=== PATIENT | female | born 1990 | race Caucasian/White ===

== ENCOUNTER 2017-06-07 21:34 | Inpatient (IN) ==
--- NOTE | 2017-06-07 21:54 | Emergency Department Note ---
Disposition Clinical Impression: Suicidal ideation, Anxiety Disposition: Admitted As Inpatient Condition: Good Referrals: NONE,PCP [Primary Care Provider] - Forms: ED Satisfaction Letter Time of Disposition: 00:26 Psych HPI - General Chief Complaint: ED Psychiatric Symptoms Stated Complaint: SI Time Seen by Provider: 06/07/17 21:40 Source: patient Mode of arrival: ambulatory Limitations: no limitations Nursing Notes Reviewed: Yes Vital Signs Reviewed: Yes - History of Present Illness HPI Narrative: Patient presents to emergency room at care family members for evaluation of suicidal ideation and manic episode. Patient has multiple life stressors that have been going on for the last several days. Denies any other symptoms or complaints at this time. 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 Duration: constant History of similar episodes: Yes Improves with: none Worsens with: other Context: significant life stressor Alleged intoxication: No Associated Psychiatric Symptoms: depression, suicidal ideation Associated symptoms: Reports: denies other symptoms Traumatic symptoms: denies traumatic injury Treatments prior to arrival: none Self harm or harm to others: admits thoughts of self harm, has plan - Related Data Home Medications Medication Instructions Recorded Confirmed Amlodipine [Norvasc] 10 mg PO DAILY 04/09/15 04/09/15 Gabapentin [Neurontin] 300 mg PO TID 04/09/15 04/09/15 HydrOXYzine 50 mg PO BID 04/09/15 04/09/15 [place] Oral Soln [[place]] 300 mg PO HS 04/09/15 04/09/15 Meloxicam [Mobic] 15 mg PO DAILY 04/09/15 04/09/15 Prazosin [Minipress] 4 mg PO HS 04/09/15 04/09/15 Zolpidem [Ambien] 5 mg PO HS 04/09/15 04/09/15 lamoTRIgine [Lamictal] 150 mg PO DAILY 04/09/15 04/09/15 Previous Rx's Medication Instructions Recorded Ondansetron ODT [Zofran ODT] 4 mg SL Q6HR PRN #10 tab.rapdis 04/05/15 Ciprofloxacin HCl [Cipro] 250 mg PO BID #10 tab 07/29/15 Phenazopyridine [Pyridium] 100 mg PO TID #20 tablet 07/29/15 Ondansetron ODT [Zofran ODT] 4 mg SL Q8HR #14 tab.rapdis 06/21/16 Amoxicillin [Amoxil] 500 mg PO BID #20 capsule 07/15/16 predniSONE [Prednisone] 60 mg PO DAILY #12 tablet 07/15/16 Phenazopyridine [Pyridium] 100 mg PO TID PRN #15 tablet 03/22/17 Allergies Allergy/AdvReac Type Severity Reaction Status Date / Time atomoxetine [From Strattera] Allergy See Verified 03/22/17 18:39 Comments lidocaine Allergy See Verified 03/22/17 18:39 Comments morphine Allergy See Verified 03/22/17 18:39 Comments promethazine Allergy See Verified 03/22/17 18:39 Comments clonazepam [From Klonopin] AdvReac Depression Verified 03/22/17 18:39 All systems ED: reviewed and negative except as stated. Review of Systems: As Per HPI Constitutional: Denies: fever, chills ENT ED: Denies: throat pain Cardiovascular: Denies: chest pain, palpitations, dyspnea on exertion, orthopnea Respiratory: Denies: cough, dyspnea, wheezes Gastrointestinal: Denies: abdominal pain, nausea, vomiting, diarrhea Genitourinary: Denies: dysuria, frequency Musculoskeletal: Denies: back pain, neck pain Integumentary: Denies: rash Neurological: Denies: headache Psychiatric: Reports: depression, suicidal thoughts. Denies: homicidal thoughts , auditory hallucinations, visual hallucinations Past Medical History - Past Medical History Attestation: Yes The following information was validated with the patient. Source: patient Medical history: Reports: hypertension Surgical history: Reports: other Psychiatric history: Reports: anxiety, bipolar, depression, prior suicide attempt, previous psychiatric hospitalization, other VISION THERAPIST history: Reports: other - Social History Smoking Status: Current every day smoker Smokeless Tobacco Status: No Alcohol use: Reports: occasionally Drug use: Reports: marijuana Physical Exam - General Limitations: no limitations General appearance: alert - Head Head exam: atraumatic, normocephalic, normal inspection - ENT ENT exam: normal exam, normal oropharynx, mucous membranes moist - Neck Neck exam: Present: normal inspection, full ROM, trachea midline - Chest Chest inspection: Present: normal inspection, symmetric chest wall rise - Respiratory Respiratory exam: Present: normal lung sounds bilaterally - Cardiovascular Cardiovascular exam: Present: regular rate, normal rhythm, normal heart sounds - Abdominal Exam Abdominal exam: Present: soft, Non-Tender. Absent: tenderness, distention, guarding, rebound, rigidity - Extremities Exam Extremities exam: Present: normal inspection, full ROM. Absent: tenderness - Neurological Exam Neurological exam: Present: alert, oriented X3, CN II-XII intact, normal gait - Psychiatric Psychiatric exam: Present: depressed, suicidal ideation - Skin Skin exam: Present: warm, dry, intact, normal color Course Course Narrative: Patient seen and examined the time of arrival. See history of present illness. 7-year-old female with known psychiatric illness presents emergency room in a manic episode with suicidal ideation. At this time she is describing that she would like to cut her wrist so deep that she would bleed to . Patient also said that you take all her psych medications at one time to kill herself. She has done this once in the past. She is currently in treatment. She did not go to appointment today. She describes multiple life stressors today at this time. Denies any other symptoms. No chest pain or shortness of breath no nausea vomiting diarrhea. Denies any headache or vision change. Patient has no other medical conditions or symptoms on presentation here today. Patient will medical clearance completed this time and laboratory workup and psychiatric team mobile. Family is with her at the bedside and agreed with the plan. Patient was pink slipped on presentation secondary to her complaints and description of her mental condition. - Reevaluation(s) Reevaluation #1: 1a contacted, medical clearance completed Time: 22:40 Reevaluation #2: Patient will be admitted at this time a psychiatric team evaluation. Time: 00:26 Vital Signs Temperature 97.8 F 06/07/17 21:42 Pulse Rate 103 06/07/17 21:42 Respiratory Rate 18 06/07/17 21:42 Blood Pressure 122/84 06/07/17 21:42 O2 Sat by Pulse Oximetry 96 06/07/17 21:42 Temperature 97.8 F 06/07/17 21:42 Pulse Rate 103 06/07/17 21:42 Respiratory Rate 18 06/07/17 21:42 Blood Pressure 122/84 06/07/17 21:42 O2 Sat by Pulse Oximetry 96 06/07/17 21:42 Oxygen Delivery Oxygen Delivery Room Air Psych - MDM Narrative Medical decision making narrative: Manic episode, suicidal ideation - Medical Records Medical records reviewed: Yes I reviewed the patient's medical records. - Lab Data Lab results reviewed: Yes I reviewed the patient's lab results. Result diagrams: 06/07/17 21:58 06/07/17 21:58 Lab Results 06/07/17 06/07/17 06/07/17 Range/Units 21:45 21:50 21:50 WBC (4.3-11.1) K/mcL RBC (3.82-4.97) M/mcL Hgb (11.5-15.4) g/dL Hct (35.3-44.9) % MCV (83.0-100.0) fL MCH (28.0-33.3) pg MCHC (31.6-35.5) g/dL RDW (11.5-14.5) % Plt Count (140-400) K/mcL MPV (9.4-12.4) fL Immature Gran % (0-4) % Seg Neutrophils % % Lymphocytes % % Monocytes % % Eosinophils % % Basophils % % Neutrophils # (1.6-8.9) K/mcL Lymphocytes # (0.6-4.6) K/mcL Monocytes # (0.0-1.3) K/mcL Eosinophils # (0.0-0.6) K/mcL Basophils # (0.0-0.2) K/mcL Sodium (136-145) mEq/L Potassium (3.5-5.1) mEq/L Chloride (98-107) mEq/L Carbon Dioxide (23-29) mEq/L BUN (6-20) mg/dL Creatinine (0.60-1.20) mg/dL Est GFR ( Amer) (> 60) Est GFR (Non-Af Amer) (> 60) BUN/Creatinine Ratio (6-26) Glucose (70-105) mg/dL Calculated Osmolality (280-300) Calcium (8.6-10.3) mg/dL Urine Color Yellow (Yellow) Urine Clarity Clear (Clear) Urine pH 6.5 (5.0-8.0) pH Units Ur Specific [place] 1.021 (1.010-1.025) Urine Protein Negative (Neg-Trace) mg/dL Urine Glucose (UA) Normal (Normal) mg/dL Urine Ketones Negative (Negative) mg/dL Urine Blood Negative (Negative) Urine Nitrite Negative (Negative) Urine Bilirubin Negative (Negative) Urine Urobilinogen Normal (Normal) mg/dL Ur Leukocyte Esterase Negative (Negative) Urine Test Negative (Negative) Salicylates (15.0-30.0) mg/dL Urine Opiates Screen Negative (Zphhiv=827) ng/mL Acetaminophen (10-30) mcg/mL Ur Barbiturates Screen Negative (Txzcgx=879) ng/mL Ur Phencyclidine Scrn Negative (Cutoff=25) ng/mL Ur Amphetamines Screen Positive H (Dpresa=4502) ng/mL U Benzodiazepines Scrn Negative (Qavbzz=399) ng/mL Urine Cocaine Screen Negative (Cutoff= 300) ng/mL U Marijuana (THC) Screen Negative (Cutoff = 50) ng/mL Ethyl Alcohol (0-10) mg/dL 06/07/17 06/07/17 Range/Units 21:58 21:58 WBC 14.2 H (4.3-11.1) K/mcL RBC 4.50 (3.82-4.97) M/mcL Hgb 13.2 (11.5-15.4) g/dL Hct 39.8 (35.3-44.9) % MCV 88.4 (83.0-100.0) fL MCH 29.3 (28.0-33.3) pg MCHC 33.2 (31.6-35.5) g/dL RDW 13.0 (11.5-14.5) % Plt Count 316 (140-400) K/mcL MPV 10.3 (9.4-12.4) fL Immature Gran % 0.4 (0-4) % Seg Neutrophils % 55.0 % Lymphocytes % 32.9 % Monocytes % 6.6 % Eosinophils % 4.5 % Basophils % 0.6 % Neutrophils # 7.8 (1.6-8.9) K/mcL Lymphocytes # 4.7 H (0.6-4.6) K/mcL Monocytes # 0.9 (0.0-1.3) K/mcL Eosinophils # 0.6 (0.0-0.6) K/mcL Basophils # 0.1 (0.0-0.2) K/mcL Sodium 138 (136-145) mEq/L Potassium 4.0 (3.5-5.1) mEq/L Chloride 110 H (98-107) mEq/L Carbon Dioxide 21 L (23-29) mEq/L BUN 11 (6-20) mg/dL Creatinine 0.74 (0.60-1.20) mg/dL Est GFR ( Amer) > 60 (> 60) Est GFR (Non-Af Amer) > 60 (> 60) BUN/Creatinine Ratio 15 (6-26) Glucose 96 (70-105) mg/dL Calculated Osmolality 285 (280-300) Calcium 9.0 (8.6-10.3) mg/dL Urine Color (Yellow) Urine Clarity (Clear) Urine pH (5.0-8.0) pH Units Ur Specific [place] (1.010-1.025) Urine Protein (Neg-Trace) mg/dL Urine Glucose (UA) (Normal) mg/dL Urine Ketones (Negative) mg/dL Urine Blood (Negative) Urine Nitrite (Negative) Urine Bilirubin (Negative) Urine Urobilinogen (Normal) mg/dL Ur Leukocyte Esterase (Negative) Urine Test (Negative) Salicylates < 5.0 L (15.0-30.0) mg/dL Urine Opiates Screen (Jltgen=553) ng/mL Acetaminophen < 1.0 L (10-30) mcg/mL Ur Barbiturates Screen (Rbtbec=151) ng/mL Ur Phencyclidine Scrn (Cutoff=25) ng/mL Ur Amphetamines Screen (Gqbbjp=8506) ng/mL U Benzodiazepines Scrn (Hdfrky=035) ng/mL Urine Cocaine Screen (Cutoff= 300) ng/mL U Marijuana (THC) Screen (Cutoff = 50) ng/mL Ethyl Alcohol < 10 (0-10) mg/dL Psychiatric Medical Clearance - Medical Clearance Checklist Does the patient have a NEW psychiatric condition?: No Any abnormalities indicating possible medical illness?: No Any history of medical issues?: No Medical History: Hypertension (Chronic) DVT prophylaxis (Acute) Leukocytosis (Acute) Mood disorder (Acute) Borderline personality disorder (Chronic) Anxiety (Chronic) Suicidal ideation (Acute) Abdominal pain (Inactive) Abnormal urinalysis (Inactive) Acute anxiety (Inactive) Acute anxiety (Inactive) Bipolar disorder (Inactive) Bipolar disorder (Inactive) Bronchitis (Inactive) Cystitis (Inactive) Dehydration (Inactive) Depression (Inactive) Gastroenteritis (Inactive) Left flank pain (Inactive) Leukocytosis (Inactive) Medication refill (Inactive) Menstrual cramp (Inactive) Nausea & vomiting (Inactive) Otitis media (Inactive) Suicidal ideation (Inactive) UTI (urinary tract infection) (Inactive) Urethritis (Inactive) No Social History Section defined Any abnormal vital signs prior to transfer?: No Current Vitals: Last Vital Signs Temp 97.8 F 06/07/17 21:42 Pulse 103 06/07/17 21:42 Resp 18 06/07/17 21:42 BP 122/84 06/07/17 21:42 Pulse Ox 96 06/07/17 21:42 Is the patient intoxicated or cognitively impaired?: No Psychiatric Lab Panel: Drug Levels and Toxicity 06/07/17 06/07/17 21:50 21:58 Urine Opiates Screen Negative Acetaminophen < 1.0 L Ur Barbiturates Screen Negative Ur Phencyclidine Scrn Negative Ur Amphetamines Screen Positive H U Benzodiazepines Scrn Negative Urine Cocaine Screen Negative U Marijuana (THC) Screen Negative Ethyl Alcohol < 10 Any abnormalities on the physical exam?: No Any abnormal labs?: No Abnormal Labs: Abnormal lab results WBC 14.2 K/mcL (4.3-11.1) H 06/07/17 21:58 Lymphocytes # 4.7 K/mcL (0.6-4.6) H 06/07/17 21:58 Chloride 110 mEq/L (98-107) H 06/07/17 21:58 Carbon Dioxide 21 mEq/L (23-29) L 06/07/17 21:58 Salicylates < 5.0 mg/dL (15.0-30.0) L 06/07/17 21:58 Acetaminophen < 1.0 mcg/mL (10-30) L 06/07/17 21:58 Ur Amphetamines Screen Positive ng/mL (Cytkwv=9193) H 06/07/17 21:50 Does the patient require durable medical equiptment?: No Is the patient ambulatory?: Yes Is the patient a fall risk?: No Has the patient been medically cleared?: Yes Any acute medical condition require Tx prior to transfer?: No Statement of Medical Clearance: I have evaluated the patient, reviewed diagnostic information, and certify that the patient's medical condition is sufficiently stable that transfer to the psychiatric unit does not pose a significant risk of deterioration.
[2017-06-07 22:00] LABS: Bilirubin,Urine Negative (Negative); Blood,Urine Negative (Negative); Clarity,Urine Clear (Clear); Color,Urine Yellow (Yellow); Glucose,Urine (UA) Normal (Normal); Ketones,Urine Negative (Negative); Leukocyte Esterase,Urine Negative (Negative); Nitrite,Urine Negative (Negative); PH,Urine 6.5 pH Units (5.0-8.0); Protein,Urine Negative (Neg-Trace); Specific Gravity,Urine 1.021 (1.010-1.025); Urobilinogen,Urine Normal (Normal)
[2017-06-07 22:05] LABS: Amphetamine Screen,Urine Positive ng/mL (Cutoff=1000); Barbiturate Screen,Urine Negative ng/mL (Cutoff=200); Benzodiazepines Screen,Urine Negative ng/mL (Cutoff=200); Cannabinoid Screen,Urine Negative ng/mL (Cutoff = 50); Cocaine Screen,Urine Negative ng/mL (Cutoff= 300); Opiate Screen,Urine Negative ng/mL (Cutoff=300); Phencyclidine Screen,Urine Negative ng/mL (Cutoff=25)
[2017-06-07 22:06] LABS: Basophils # 0.1 K/mcL (0.0-0.2); Basophils % 0.6 %; Eosinophils # 0.6 K/mcL (0.0-0.6); Eosinophils % 4.5 %; Hematocrit 39.8 % (35.3-44.9); Hemoglobin 13.2 g/dL (11.5-15.4); Immature Granulocytes % 0.4 % (0-4); Lymphocytes # 4.7 K/mcL (0.6-4.6); Lymphocytes % 32.9 %; Mean Corpuscular HGB Conc 33.2 g/dL (31.6-35.5); Mean Corpuscular Hemoglobin 29.3 pg (28.0-33.3); Mean Corpuscular Volume 88.4 fL (83.0-100.0); Mean Platelet Volume 10.3 fL (9.4-12.4); Monocytes # 0.9 K/mcL (0.0-1.3); Monocytes % 6.6 %; Neutrophils # 7.8 K/mcL (1.6-8.9); Platelet Count 316 K/mcL (140-400)
[2017-06-07 22:22] LABS: Acetaminophen < 1.0 mcg/mL (10-30); Ethanol < 10 mg/dL (0-10); Salicylate < 5.0 mg/dL (15.0-30.0)
[2017-06-07 22:34] LABS: BUN/Creatinine Ratio 15 (6-26); Blood Urea Nitrogen 11 mg/dL (6-20); Carbon Dioxide 21 mEq/L (23-29); Chloride 110 mEq/L (98-107); Glucose 96 mg/dL (70-105); Osmolality,Calculated 285 (280-300); Sodium 138 mEq/L (136-145); eGFR For African Americans > 60 (> 60); eGFR For Non-African Americans > 60 (> 60)
[2017-06-08] MEDS ORDERED: MOM Conc 10 ML UD.LIQ PO PRN (00:30)
[2017-06-08] MEDS ORDERED: hydrOXYzine pamoate 25 MG CAPSULE PO PRN (00:30)
[2017-06-08] MEDS ORDERED: Haloperidol Lactate 5 MG/ML VIAL IM PRN (00:30)
[2017-06-08] MEDS ORDERED: Mag Hydrox/Al Hydrox/Simeth 30 ML UDC PO PRN (00:30)
[2017-06-08] MEDS ORDERED: Acetaminophen 325 MG TABLET PO PRN (00:30)
[2017-06-08] MEDS ORDERED: *HR* LORazepam 1 MG TABLET PO PRN (00:30)
[2017-06-08] MEDS ORDERED: traZODone 50 MG TABLET PO PRN (00:30)
[2017-06-08] MEDS ORDERED: *HR* LORazepam 2 MG/ML VIAL IM PRN (00:30)
[2017-06-08] MEDS ORDERED: Divalproex (24 HR) 500 MG TABLET PO SCH (01:15)
[2017-06-08] MEDS ORDERED: Nicotine 2 MG GUM BC PRN (02:24)
[2017-06-08] MEDS: JUNEL 1/20 PO SCH ×2 (03:11→09:27)
[2017-06-08] MEDS: Ibuprofen 800 MG TABLET PO PRN (03:12)
[2017-06-08] MEDS ORDERED: Nicotine 2 MG GUM BC SCH (06:00)
[2017-06-08] MEDS: Nicotine 21 MG PATCH.TD24 TD SCH (09:04)
[2017-06-08] MEDS: *HR* Metformin 500 MG TABLET PO SCH ×2 (09:04→16:13)
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
[2017-06-08] MEDS: Gabapentin 400 MG CAPSULE PO SCH ×2 (16:13→21:33)
[2017-06-08] MEDS: Divalproex (24 HR) 500 MG TABLET PO SCH (21:33)
[2017-06-08] MEDS: ETHINYL ESTRADIOL PO SCH (21:34)
[2017-06-08] MEDS: NORETHINDRONE ACETATE PO SCH (21:34)
[2017-06-09] MEDS: Nicotine 21 MG PATCH.TD24 TD SCH (08:25)
[2017-06-09] MEDS: Gabapentin 400 MG CAPSULE PO SCH ×3 (08:25→21:13)
[2017-06-09] MEDS: *HR* Metformin 500 MG TABLET PO SCH ×2 (08:25→15:35)
--- NOTE | 2017-06-09 09:53 | Psychiatry Progress Note ---
Date of Encounter: 06/09/17 Time of Encounter: 09:48 Subjective Interval history: Client reports she is feeling better. Still some drama over an ex-girlfriend who is still living with client. However, ex is moving to [place] next week. Client's sister is planning to live with client after discharge to help her through the transition of ex leaving and so client won't be alone after she does move. Client reports being alone is a trigger for her. Client is aware she could lose her housing due to recent meth use. Has worked hard to become independent. However, her mother is supportive and client will have somewhere to go if she needs a back-up plan. Given her impulsivity mother intends to hold on to medications and dispense them to client when needed. Client reports she intends to go to groups today. Thinks she will be ready for discharge by tomorrow. Has follow-up appointments in place for next week. Review of Systems Constitutional: Denies: fever, chills, weakness, weight change Eyes: Denies: eye pain, vision change Ears, Nose, Throat: Denies: ear pain, throat pain, dental pain, hearing loss, congestion Cardiovascular: Denies: chest pain, palpitations, dyspnea on exertion Respiratory: Denies: cough, dyspnea, wheezes Gastrointestinal: Denies: abdominal pain, nausea, vomiting, diarrhea, constipation Musculoskeletal: Denies: joint swelling, joint pain Neurological: Denies: headache, weakness, numbness, memory loss Objective: Exam Patient orientation: Yes Person, Yes Time, Yes Place Level of alertness: Alert Patient appearance: Appropriate, Well Groomed Behavior: calm, cooperative Psychomotor activity: Normal Eye contact: Maintains Eye Contact Mood description: Other Affect description: full range Speech pattern: Normal rate, Normal rhythm, Normal tone Speech volume: Normal Thought process: Goal Oriented Thought content: No Suicidal ideation, No Homicidal ideation, No Overt delusions Perceptual disturbances: No Auditory hallucinations, No Visual hallucinations Judgment: Limited Insight: Partial Results - Vital Signs Vital Signs: Temp Pulse Resp BP Pulse Ox 97.6 F 91 16 113/78 96 06/09/17 08:46 06/09/17 08:46 06/09/17 08:46 06/09/17 08:46 06/07/17 21:42 Assessment and Plan (1) Mood disorder Current visit: No Status: Acute Plan: Continue hospitalization, Close observation, Suicide Precautions per unit protocol, Encourage participation in unit milieu, Group Therapy, Monitor sleep, Monitor appetite Risks, benefits, side effects, alternatives discussed w/pt: Yes Patient agreeable to treatment: Yes (2) Borderline personality disorder Current visit: No Status: Chronic Plan: Continue hospitalization, Close observation, Suicide Precautions per unit protocol, Encourage participation in unit milieu, Group Therapy, Monitor sleep, Monitor appetite Risks, benefits, side effects, alternatives discussed w/pt: Yes Patient agreeable to treatment: Yes Consult Discharge Plan - Plan Referrals: NONE,PCP [Primary Care Provider] -
[2017-06-09] MEDS: Nicotine 2 MG GUM BC PRN ×2 (18:37→22:21)
[2017-06-09] MEDS: ETHINYL ESTRADIOL PO SCH (20:57)
[2017-06-09] MEDS: NORETHINDRONE ACETATE PO SCH (20:57)
[2017-06-09] MEDS: Divalproex (24 HR) 500 MG TABLET PO SCH (20:58)
[2017-06-09] MEDS: Ibuprofen 800 MG TABLET PO PRN (22:20)
[2017-06-10] MEDS: *HR* Metformin 500 MG TABLET PO SCH (08:13)
[2017-06-10] MEDS: Gabapentin 400 MG CAPSULE PO SCH (08:13)
[2017-06-10] MEDS: Nicotine 2 MG GUM BC PRN (08:33)
[2017-06-10 09:12] VITALS: BP 128/83
--- NOTE | 2017-06-10 11:18 | Discharge Summary ---
Date of Encounter: 06/10/17 Time of Encounter: 11:15 Diagnosis - Discharge Diagnosis (1) Mood disorder Status: Acute (2) Borderline personality disorder Status: Chronic Medications - Discharge Medications Zolpidem [Ambien] 10 mg PO HS 04/09/15 [History] Benztropine Mesylate 0.5 mg PO DAILY 06/08/17 [History] Divalproex (24 HR) [Depakote ER (24 HR)] 1,000 mg PO HS 06/08/17 [History] Gabapentin [Neurontin] 800 mg PO TID 06/08/17 [History] Ibuprofen [Motrin] 800 mg PO TID 06/08/17 [History] Lurasidone HCl [Latuda] 80 mg PO DAILY 06/08/17 [History] Norethindrone AC-Eth Estradiol [Junel 1 mg-20 Mcg Tablet] 1 tab PO DAILY [History] Omeprazole [PriLOSEC] 40 mg PO DAILY 06/08/17 [History] metFORMIN [Glucophage] 500 mg PO TID 06/08/17 [History] Patient Taking Own Medication 1 each PO HS each 06/10/17 [Rx] 3 Allergy/AdvReac Type Severity Reaction Status Date / Time atomoxetine [From Strattera] Allergy See Verified 03/22/17 18:39 Comments lidocaine Allergy See Verified 03/22/17 18:39 Comments morphine Allergy See Verified 03/22/17 18:39 Comments promethazine Allergy See Verified 03/22/17 18:39 Comments trazodone Allergy Anaphylaxis Verified 06/08/17 02:15 clonazepam [From Klonopin] AdvReac Depression Verified 03/22/17 18:39 quetiapine [From Seroquel] AdvReac Itching Verified 06/08/17 02:15 nicotine patch AdvReac Rash Uncoded 06/09/17 18:27 Results Procedures and tests throughout hospitalization: Completed Lab Orders Category Date Time Status Valproate Stat Lab 06/08/17 01:53 Completed Provider Date of admission: 06/08/17 00:28 Primary care physician: PCP NONE Discharging clinician: Jennifer Laurent Assessment and Plan - Patient/Caregiver Discharge Instructions Activity: resume usual activities as tolerated Diet: regular diet - Follow up Plan Follow up with: NONE,PCP [Primary Care Provider] - Overall status at discharge: Stable Disposition: Home, Self-Care Hospital Course Hospital course: Ms. Melendez is a 27 year old female who was admitted for subjective feelings of aminah, SI, and thoughts of self harm. No med changes were necessary. She improved just by being in the structured environment of the hospital. She ate and slept well. She attended groups. Staff ran the groups she wanted the most to address the coping skills she struggles with. She is already well linked with services and has follow-up scheduled with her counselor and psychiatrist on 06/14 and 06/21. Client doesn't like being alone so her sister has agreed to stay with her until a friend moves in on 06/25. Staff are familiar with client and report this is the best she has ever done. Denied all SI/HI/AH/VH on the day of discharge. - Time Spent with Patient Total time spent providing and/or coordinating discharge services: Quality - Multiple Antipsychotics Patient discharged on 2 or more antipsychotic medications: No Procedures - Procedures Procedures: Medication Management, Crisis Stabilization, Supportive Therapy, Group Therapy Mental Status Exam - Mental Status Exam Patient orientation: Yes Person, Yes Time, Yes Place Level of alertness: Alert Patient appearance: Appropriate, Well Groomed Behavior: calm, cooperative Psychomotor activity: Normal Eye contact: Maintains Eye Contact Mood description: Euthymic/stable Affect description: congruent with mood, full range Speech pattern: Normal rate, Normal rhythm, Normal tone Speech Volume: Normal Thought process: Linear, Goal Oriented Thought Content: No Suicidal ideation, No Homicidal ideation, No Overt delusions Perceptual Disturbances: No Auditory hallucinations, No Visual hallucinations Judgment: Fair Insight: Partial
== END 2017-06-10 11:50 | disposition home or self-care (01) | DRG 885 ==
LOC: EMEROO 21:34 → 1ANU 06-08 00:28
PROVIDERS: ADMIT Psychiatry & Neurology Psychiatry; ATTEND Psychiatry & Neurology Psychiatry

== ENCOUNTER 2017-10-07 16:10 | Observation (INO) ==
--- NOTE | 2017-10-07 16:33 | Emergency Department Note ---
Disposition Clinical Impression: Bipolar disorder Qualifiers: Active/Remission status: remission status unspecified Qualified Code(s): F31.9 - Bipolar disorder, unspecified Disposition: Still a Patient Condition: Good Referrals: NONE,PCP [Primary Care Provider] - Forms: ED Satisfaction Letter Time of Disposition: 21:10 Psych HPI - General Chief Complaint: ED Psychiatric Symptoms Stated Complaint: si Time Seen by Provider: 10/07/17 16:31 Source: patient Mode of arrival: ambulatory Limitations: no limitations Nursing Notes Reviewed: Yes Vital Signs Reviewed: Yes - History of Present Illness HPI Narrative: 27-year-old who states that she is suicidal and over the last several hours has taken 2800 mg gabapentin Pt complaint: suicidal ideation, feels depressed If medical clearance, reason: psychiatric condition Onset (ago): Just [employer] Duration: constant History of similar episodes: Yes Improves with: none Worsens with: none Context: recent alcohol abuse, significant life stressor Alleged intoxication: Yes Associated Psychiatric Symptoms: depression, suicidal ideation Associated symptoms: Reports: denies other symptoms Traumatic symptoms: denies traumatic injury Treatments prior to arrival: none - Related Data Home Medications Medication Instructions Recorded Confirmed Zolpidem [Ambien] 10 mg PO HS 04/09/15 06/08/17 Benztropine Mesylate 0.5 mg PO DAILY 06/08/17 06/08/17 Divalproex (24 HR) [Depakote ER 1,000 mg PO HS 06/08/17 06/08/17 (24 HR)] Gabapentin [Neurontin] 800 mg PO TID 06/08/17 06/08/17 Ibuprofen [Motrin] 800 mg PO TID 06/08/17 06/08/17 Lurasidone HCl [Latuda] 80 mg PO DAILY 06/08/17 06/08/17 Norethindrone AC-Eth Estradiol 1 tab PO DAILY 06/08/17 06/08/17 [Junel 1 mg-20 Mcg Tablet] Omeprazole [PriLOSEC] 40 mg PO DAILY 06/08/17 06/08/17 metFORMIN [Glucophage] 500 mg PO TID 06/08/17 06/08/17 Previous Rx's Medication Instructions Recorded Patient Taking Own Medication 1 each PO HS each 06/10/17 Allergies Allergy/AdvReac Type Severity Reaction Status Date / Time atomoxetine [From Strattera] Allergy See Verified 06/29/17 18:32 Comments lidocaine Allergy See Verified 06/29/17 18:32 Comments morphine Allergy See Verified 06/29/17 18:32 Comments promethazine Allergy See Verified 06/29/17 18:32 Comments trazodone Allergy Anaphylaxis Verified 06/29/17 18:32 clonazepam [From Klonopin] AdvReac Depression Verified 06/29/17 18:32 quetiapine [From Seroquel] AdvReac Itching Verified 06/29/17 18:32 nicotine patch AdvReac Rash Uncoded 06/29/17 18:32 All systems ED: reviewed and negative except as stated. Constitutional: Denies: fever, chills, weakness, weight change Eyes: Denies: eye pain, eye discharge, vision change ENT ED: Denies: ear pain, throat pain, dental pain, hearing loss, epistaxis, congestion, dysphagia Cardiovascular: Denies: chest pain, palpitations, dyspnea on exertion, edema, syncope Respiratory: Denies: cough, dyspnea, wheezes, hemoptysis, stridor Gastrointestinal: Denies: abdominal pain, nausea, vomiting, diarrhea, constipation, hematemesis, melena, hematochezia Genitourinary: Denies: dysuria, frequency, hematuria, discharge Musculoskeletal: Denies: back pain, neck pain, arthralgia, myalgia Integumentary: Denies: rash, abrasion, lesions Neurological: Denies: headache, weakness, numbness, paresthesias, confusion, abnormal gait, vertigo Psychiatric: Reports: depression, suicidal thoughts. Denies: anxiety, homicidal thoughts, auditory hallucinations, visual hallucinations Endocrine: Denies: fatigue Hematological/Lymphatic: Denies: easy bleeding, easy bruising Allergic/Immunologic: Denies: facial swelling, urticaria Past Medical History - Past Medical History Medical history: Reports: hypertension Surgical history: Reports: other Psychiatric history: Reports: previous psychiatric hospitalization [employer] history: Reports: other - Social History Smoking Status: Former smoker Smokeless Tobacco Status: Yes Alcohol use: Reports: heavy, recent Drug use: Reports: marijuana, methamphetamine Physical Exam - General Limitations: no limitations General appearance: alert, in no apparent distress - Head Head exam: atraumatic, normocephalic, normal inspection - Eye Eye exam: Present: normal appearance, PERRL, EOMI - ENT ENT exam: normal exam, normal oropharynx, mucous membranes moist - Neck Neck exam: Present: normal inspection, full ROM, trachea midline - Chest Chest inspection: Present: normal inspection, symmetric chest wall rise - Respiratory Respiratory exam: Present: normal lung sounds bilaterally - Cardiovascular Cardiovascular exam: Present: regular rate - Abdominal Exam Abdominal exam: Present: soft, Non-Tender. Absent: tenderness, distention, guarding, rebound, rigidity - Extremities Exam Extremities exam: Present: normal inspection, full ROM. Absent: tenderness, pedal edema - Expanded Lower Extremity Exam Neurovascular/Tendon exam: Absent: motor deficit, sensory deficit, tendon deficit Gait: observed and normal - Back Exam Back exam: Present: normal inspection, full ROM. Absent: tenderness - Neurological Exam Neurological exam: Present: alert, oriented X3 - Psychiatric Psychiatric exam: Present: depressed - Skin Skin exam: Present: warm, dry, intact, normal color Course - Consultations Consultation #1: I spoke to poison control and they recommended EKG usual overdose protocol and to monitor her for 4 hours and then obtain psychiatric consult. Time: 16:45 Vital Signs Temperature 97.8 F 10/07/17 16:14 Pulse Rate 110 10/07/17 16:14 Respiratory Rate 15 10/07/17 16:14 Blood Pressure 122/80 10/07/17 16:14 O2 Sat by Pulse Oximetry 95 10/07/17 16:14 Temperature 97.8 F 10/07/17 16:57 Pulse Rate 94 10/07/17 20:00 Respiratory Rate 14 10/07/17 20:00 Blood Pressure 126/82 10/07/17 20:00 O2 Sat by Pulse Oximetry 99 10/07/17 20:00 Oxygen Delivery Oxygen Delivery Room Air Psych - Lab Data Result diagrams: 10/07/17 16:56 10/07/17 16:56 Lab Results 10/07/17 10/07/17 10/07/17 Range/Units 16:56 16:56 16:56 WBC 18.4 H (4.3-11.1) K/mcL RBC 5.15 H (3.82-4.97) M/mcL Hgb 15.0 (11.5-15.4) g/dL Hct 45.3 H (35.3-44.9) % MCV 88.0 (83.0-100.0) fL MCH 29.1 (28.0-33.3) pg MCHC 33.1 (31.6-35.5) g/dL RDW 14.2 (11.5-14.5) % Plt Count 357 (140-400) K/mcL MPV 10.0 (9.4-12.4) fL Immature Gran % 0.5 (0-4) % Seg Neutrophils % 70.4 % Lymphocytes % 19.5 % Monocytes % 7.9 % Eosinophils % 1.0 % Basophils % 0.7 % Neutrophils # 13.0 H (1.6-8.9) K/mcL Lymphocytes # 3.6 (0.6-4.6) K/mcL Monocytes # 1.5 H (0.0-1.3) K/mcL Eosinophils # 0.2 (0.0-0.6) K/mcL Basophils # 0.1 (0.0-0.2) K/mcL Sodium 141 (136-145) mEq/L Potassium 3.8 (3.5-5.1) mEq/L Chloride 108 H (98-107) mEq/L Carbon Dioxide 21 L (23-29) mEq/L BUN 13 (6-20) mg/dL Creatinine 1.80 H (0.60-1.20) mg/dL Est GFR ( Amer) 42 L (> 60) Est GFR (Non-Af Amer) 34 L (> 60) BUN/Creatinine Ratio 7 (6-26) Glucose 89 (70-105) mg/dL Calculated Osmolality 292 (280-300) Calcium 9.5 (8.6-10.3) mg/dL Serum , Qual Negative (Negative) Ur Specimen Adequacy Urine Color (Yellow) Urine Clarity (Clear) Urine pH (5.0-8.0) pH Units Ur Specific [place] (1.010-1.025) Urine Protein (Neg-Trace) mg/dL Urine Glucose (UA) (Normal) mg/dL Urine Ketones (Negative) mg/dL Urine Blood (Negative) Urine Nitrite (Negative) Urine Bilirubin (Negative) Urine Urobilinogen (Normal) mg/dL Ur Leukocyte Esterase (Negative) Urine Microscopic RBC (0-3) per hpf Urine Microscopic WBC (0-3) per hpf Ur Squamous Epith Cells (None-Few) per lpf Ur Transition Epith Cell (None-Few) per hpf Ur Renal Epithelial Cell (None-Few) per hpf Urine Bacteria (None-Few) per hpf Hyaline Casts Granular Casts (None Seen) per lpf Waxy Casts (None Seen) per lpf WBC Casts (None Seen) per lpf Salicylates < 2.5 L (15.0-30.0) mg/dL Urine Opiates Screen (Tqpdme=748) ng/mL Acetaminophen < 10 L (10-20) mcg/mL Ur Barbiturates Screen (Vafepz=708) ng/mL Valproic Acid 5 L (50-100) mcg/mL Ur Phencyclidine Scrn (Cutoff=25) ng/mL Ur Amphetamines Screen (Cocenl=8777) ng/mL U Benzodiazepines Scrn (Giwlqz=104) ng/mL Urine Cocaine Screen (Cutoff= 300) ng/mL U Marijuana (THC) Screen (Cutoff = 50) ng/mL Ethyl Alcohol < 10 (Less than 10) mg/dL 10/07/17 10/07/17 Range/Units 18:50 18:50 WBC (4.3-11.1) K/mcL RBC (3.82-4.97) M/mcL Hgb (11.5-15.4) g/dL Hct (35.3-44.9) % MCV (83.0-100.0) fL MCH (28.0-33.3) pg MCHC (31.6-35.5) g/dL RDW (11.5-14.5) % Plt Count (140-400) K/mcL MPV (9.4-12.4) fL Immature Gran % (0-4) % Seg Neutrophils % % Lymphocytes % % Monocytes % % Eosinophils % % Basophils % % Neutrophils # (1.6-8.9) K/mcL Lymphocytes # (0.6-4.6) K/mcL Monocytes # (0.0-1.3) K/mcL Eosinophils # (0.0-0.6) K/mcL Basophils # (0.0-0.2) K/mcL Sodium (136-145) mEq/L Potassium (3.5-5.1) mEq/L Chloride (98-107) mEq/L Carbon Dioxide (23-29) mEq/L BUN (6-20) mg/dL Creatinine (0.60-1.20) mg/dL Est GFR ( Amer) (> 60) Est GFR (Non-Af Amer) (> 60) BUN/Creatinine Ratio (6-26) Glucose (70-105) mg/dL Calculated Osmolality (280-300) Calcium (8.6-10.3) mg/dL Serum , Qual (Negative) Ur Specimen Adequacy See below A Urine Color Yellow (Yellow) Urine Clarity Slightly Hazy (Clear) Urine pH 6.5 (5.0-8.0) pH Units Ur Specific [place] 1.013 (1.010-1.025) Urine Protein 100 H (Neg-Trace) mg/dL Urine Glucose (UA) 100 H (Normal) mg/dL Urine Ketones Negative (Negative) mg/dL Urine Blood Trace H (Negative) Urine Nitrite Negative (Negative) Urine Bilirubin Negative (Negative) Urine Urobilinogen Normal (Normal) mg/dL Ur Leukocyte Esterase Negative (Negative) Urine Microscopic RBC 3-5 H (0-3) per hpf Urine Microscopic WBC 5-15 H (0-3) per hpf Ur Squamous Epith Cells Many H (None-Few) per lpf Ur Transition Epith Cell Few (None-Few) per hpf Ur Renal Epithelial Cell Few (None-Few) per hpf Urine Bacteria None Seen (None-Few) per hpf Hyaline Casts Test Not Performed Granular Casts Few H (None Seen) per lpf Waxy Casts Few H (None Seen) per lpf WBC Casts Few H (None Seen) per lpf Salicylates (15.0-30.0) mg/dL Urine Opiates Screen Negative (Gzmvdi=439) ng/mL Acetaminophen (10-20) mcg/mL Ur Barbiturates Screen Negative (Nyexka=843) ng/mL Valproic Acid (50-100) mcg/mL Ur Phencyclidine Scrn Negative (Cutoff=25) ng/mL Ur Amphetamines Screen Negative (Zvppqs=4777) ng/mL U Benzodiazepines Scrn Negative (Vvdyyk=494) ng/mL Urine Cocaine Screen Negative (Cutoff= 300) ng/mL U Marijuana (THC) Screen Positive H (Cutoff = 50) ng/mL Ethyl Alcohol (Less than 10) mg/dL - EKG Data EKG attestation: Yes I reviewed and interpreted this EKG. EKG shows normal: sinus rhythm Rate: normal Rhythm: NSR [place]/QRS: normal QTc: other (Normal) Psychiatric Medical Clearance - Medical Clearance Checklist Medical History: Hypertension (Chronic) DVT prophylaxis (Acute) Leukocytosis (Acute) Mood disorder (Acute) Borderline personality disorder (Chronic) Anxiety (Chronic) Suicidal ideation (Acute) Abdominal pain (Inactive) Abnormal urinalysis (Inactive) Acute anxiety (Inactive) Acute anxiety (Inactive) Bipolar disorder (Inactive) Bipolar disorder (Inactive) Bronchitis (Inactive) Cystitis (Inactive) Dehydration (Inactive) Depression (Inactive) Depression (Inactive) Gastroenteritis (Inactive) Left flank pain (Inactive) Leukocytosis (Inactive) Medication refill (Inactive) Menstrual cramp (Inactive) Nausea & vomiting (Inactive) Otitis media (Inactive) Substance abuse (Inactive) Suicidal ideation (Inactive) Tobacco abuse (Inactive) UTI (urinary tract infection) (Inactive) Urethritis (Inactive) No Social History Section defined Current Vitals: Last Vital Signs Temp 97.8 F 10/07/17 16:57 Pulse 94 10/07/17 20:00 Resp 14 10/07/17 20:00 BP 126/82 10/07/17 20:00 Pulse Ox 99 10/07/17 20:00 Psychiatric Lab Panel: Drug Levels and Toxicity 10/07/17 10/07/17 16:56 18:50 Urine Opiates Screen Negative Acetaminophen < 10 L Ur Barbiturates Screen Negative Ur Phencyclidine Scrn Negative Ur Amphetamines Screen Negative U Benzodiazepines Scrn Negative Urine Cocaine Screen Negative U Marijuana (THC) Screen Positive H Ethyl Alcohol < 10 Abnormal Labs: Abnormal lab results WBC 18.4 K/mcL (4.3-11.1) H 10/07/17 16:56 RBC 5.15 M/mcL (3.82-4.97) H 10/07/17 16:56 Hct 45.3 % (35.3-44.9) H 10/07/17 16:56 Neutrophils # 13.0 K/mcL (1.6-8.9) H 10/07/17 16:56 Monocytes # 1.5 K/mcL (0.0-1.3) H 10/07/17 16:56 Chloride 108 mEq/L (98-107) H 10/07/17 16:56 Carbon Dioxide 21 mEq/L (23-29) L 10/07/17 16:56 Creatinine 1.80 mg/dL (0.60-1.20) H 10/07/17 16:56 Est GFR ( Amer) 42 (> 60) L 10/07/17 16:56 Est GFR (Non-Af Amer) 34 (> 60) L 10/07/17 16:56 Ur Specimen Adequacy See below A 10/07/17 18:50 Urine Protein 100 mg/dL (Neg-Trace) H 10/07/17 18:50 Urine Glucose (UA) 100 mg/dL (Normal) H 10/07/17 18:50 Urine Blood Trace (Negative) H 10/07/17 18:50 Urine Microscopic RBC 3-5 per hpf (0-3) H 10/07/17 18:50 Urine Microscopic WBC 5-15 per hpf (0-3) H 10/07/17 18:50 Ur Squamous Epith Cells Many per lpf (None-Few) H 10/07/17 18:50 Granular Casts Few per lpf (None Seen) H 10/07/17 18:50 Waxy Casts Few per lpf (None Seen) H 10/07/17 18:50 WBC Casts Few per lpf (None Seen) H 10/07/17 18:50 Salicylates < 2.5 mg/dL (15.0-30.0) L 10/07/17 16:56 Acetaminophen < 10 mcg/mL (10-20) L 10/07/17 16:56 Valproic Acid 5 mcg/mL (50-100) L 10/07/17 16:56 U Marijuana (THC) Screen Positive ng/mL (Cutoff = 50) H 10/07/17 18:50 Statement of Medical Clearance: I have evaluated the patient, reviewed diagnostic information, and certify that the patient's medical condition is sufficiently stable that transfer to the psychiatric unit does not pose a significant risk of deterioration. S.B.A.R. - S.B.A.RElina Recommendation: Recommendation based on pending studies, treatments, or consults S.B.A.RElina Report Given to: Marko Beard Repor Time: 21:11
[2017-10-07 17:10] LABS: Basophils # 0.1 K/mcL (0.0-0.2); Basophils % 0.7 %; Eosinophils # 0.2 K/mcL (0.0-0.6); Hematocrit 45.3 % (35.3-44.9); Immature Granulocytes % 0.5 % (0-4); Lymphocytes # 3.6 K/mcL (0.6-4.6); Lymphocytes % 19.5 %; Mean Corpuscular HGB Conc 33.1 g/dL (31.6-35.5); Mean Corpuscular Hemoglobin 29.1 pg (28.0-33.3); Monocytes # 1.5 K/mcL (0.0-1.3); Monocytes % 7.9 %; Platelet Count 357 K/mcL (140-400); Red Blood Count 5.15 M/mcL (3.82-4.97); Red Cell Distribution Width 14.2 % (11.5-14.5); Segmented Neutrophils % 70.4 %
[2017-10-07 17:29] LABS: Acetaminophen < 10 mcg/mL (10-20)
[2017-10-07] MEDS ORDERED: 0.9 % Sodium Chloride 1,000 ML IVC ONE (17:29)
[2017-10-07] MEDS ORDERED: Ondansetron 4 MG/2 ML VIAL IVP ONE (17:29)
[2017-10-07 17:54] LABS: BUN/Creatinine Ratio 7 (6-26); Blood Urea Nitrogen 13 mg/dL (6-20); Calcium 9.5 mg/dL (8.6-10.3); Carbon Dioxide 21 mEq/L (23-29); Chloride 108 mEq/L (98-107); Ethanol < 10 mg/dL (Less than 10); Glucose 89 mg/dL (70-105); Osmolality,Calculated 292 (280-300); Potassium 3.8 mEq/L (3.5-5.1); Salicylate < 2.5 mg/dL (15.0-30.0); Sodium 141 mEq/L (136-145); eGFR For African Americans 42 (> 60); eGFR For Non-African Americans 34 (> 60)
[2017-10-07 18:41] LABS: Valproate 5 mcg/mL (50-100)
[2017-10-07 19:03] LABS: Bilirubin,Urine Negative (Negative); Blood,Urine Trace (Negative); Color,Urine Yellow (Yellow); Glucose,Urine (UA) 100 mg/dL (Normal); Ketones,Urine Negative (Negative); Leukocyte Esterase,Urine Negative (Negative); Nitrite,Urine Negative (Negative); PH,Urine 6.5 pH Units (5.0-8.0); Protein,Urine 100 mg/dL (Neg-Trace); Specific Gravity,Urine 1.013 (1.010-1.025); Urobilinogen,Urine Normal (Normal)
[2017-10-07 19:06] LABS: Bacteria,Urine None Seen per hpf (None-Few); Squamous Epithelial Cell,Urine Many per lpf (None-Few)
[2017-10-07 19:07] LABS: Clarity,Urine Slightly Hazy (Clear)
[2017-10-07 19:13] LABS: Amphetamine Screen,Urine Negative ng/mL (Cutoff=1000); Barbiturate Screen,Urine Negative ng/mL (Cutoff=200); Benzodiazepines Screen,Urine Negative ng/mL (Cutoff=200); Cannabinoid Screen,Urine Positive ng/mL (Cutoff = 50); Cocaine Screen,Urine Negative ng/mL (Cutoff= 300); Opiate Screen,Urine Negative ng/mL (Cutoff=300); Phencyclidine Screen,Urine Negative ng/mL (Cutoff=25)
[2017-10-07 19:19] LABS: Granular Casts,Urine Few per lpf (None Seen); Renal Epithelial Cells,Urine Few per hpf (None-Few); Transitional Epi Cells,Urine Few per hpf (None-Few)
[2017-10-07 19:20] LABS: Waxy Casts,Urine Few per lpf (None Seen)
[2017-10-07 19:21] LABS: White Blood Cell Casts,Urine Few per lpf (None Seen)
[2017-10-07] MEDS ORDERED: Acetaminophen 325 MG TABLET PO PRN (21:52)
[2017-10-07] MEDS ORDERED: Haloperidol Lactate 5 MG/ML VIAL IM PRN (21:52)
[2017-10-07] MEDS ORDERED: MOM Conc 10 ML UD.LIQ PO PRN (21:52)
[2017-10-07] MEDS ORDERED: *HR* LORazepam 2 MG/ML VIAL IM PRN (21:52)
[2017-10-07] MEDS ORDERED: Mag Hydrox/Al Hydrox/Simeth 30 ML UDC PO PRN (21:52)
[2017-10-07] MEDS ORDERED: *HR* LORazepam 1 MG TABLET PO PRN (21:52)
--- NOTE | 2017-10-07 21:54 | Emergency Department Note ---
Disposition Clinical Impression: Bipolar disorder Qualifiers: Active/Remission status: remission status unspecified Qualified Code(s): F31.9 - Bipolar disorder, unspecified Disposition: Transfer Psychiatric Hosp Condition: Good Psych HPI - General Chief Complaint: ED Psychiatric Symptoms Stated Complaint: si Time Seen by Provider: 10/07/17 16:31 Source: patient Mode of arrival: ambulatory Nursing Notes Reviewed: Yes Vital Signs Reviewed: Yes - History of Present Illness Duration: constant Improves with: none Worsens with: none Associated symptoms: Reports: denies other symptoms Treatments prior to arrival: none - Related Data Home Medications Medication Instructions Recorded Confirmed Zolpidem [Ambien] 10 mg PO HS 04/09/15 10/07/17 Divalproex (24 HR) [Depakote ER 1,000 mg PO HS 06/08/17 10/07/17 (24 HR)] Gabapentin [Neurontin] 800 mg PO TID 06/08/17 10/07/17 Lurasidone HCl [Latuda] 80 mg PO DAILY 06/08/17 10/07/17 Allergies Allergy/AdvReac Type Severity Reaction Status Date / Time atomoxetine [From Strattera] Allergy See Verified 06/29/17 18:32 Comments lidocaine Allergy See Verified 06/29/17 18:32 Comments morphine Allergy See Verified 06/29/17 18:32 Comments promethazine Allergy See Verified 06/29/17 18:32 Comments trazodone Allergy Anaphylaxis Verified 06/29/17 18:32 clonazepam [From Klonopin] AdvReac Depression Verified 06/29/17 18:32 quetiapine [From Seroquel] AdvReac Itching Verified 06/29/17 18:32 nicotine patch AdvReac Rash Uncoded 06/29/17 18:32 Constitutional: Denies: fever, chills, weakness, weight change Eyes: Denies: eye pain, eye discharge, vision change ENT ED: Denies: ear pain, throat pain, dental pain, hearing loss, epistaxis, congestion, dysphagia Cardiovascular: Denies: chest pain, palpitations, dyspnea on exertion, edema, syncope Respiratory: Denies: cough, dyspnea, wheezes, hemoptysis, stridor Gastrointestinal: Denies: abdominal pain, nausea, vomiting, diarrhea, constipation, hematemesis, melena, hematochezia Genitourinary: Denies: dysuria, frequency, hematuria, discharge Musculoskeletal: Denies: back pain, neck pain, arthralgia, myalgia Integumentary: Denies: rash, abrasion, lesions Neurological: Denies: headache, weakness, numbness, paresthesias, confusion, abnormal gait, vertigo Psychiatric: Reports: depression, suicidal thoughts. 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 Dunham at provider shift change. Quickly, 27-year-old patient who claims to have overdosed on different medications include gabapentin , Depakote, Latuda. All of this happened within the last 24 hours. Patient had apparently told EMS that she was suicidal. Patient has been cleared medically. Dr. Dunham's coverage of patient, we are pending psychiatry consultation at this time. Disposition will be pending psychiatric recommendations. - Reevaluation(s) Reevaluation #1: Psychiatric services consultation completed with decision to admit to inpatient psychiatry here. Patient is pink slipped, will be moved to the inpatient psychiatric units at this time. Remains medically stable Time: 21:55 Vital Signs Temperature 97.8 F 10/07/17 16:14 Pulse Rate 110 10/07/17 16:14 Respiratory Rate 15 10/07/17 16:14 Blood Pressure 122/80 10/07/17 16:14 O2 Sat by Pulse Oximetry 95 10/07/17 16:14 Temperature 97.8 F 10/07/17 16:57 Pulse Rate 94 10/07/17 20:00 Respiratory Rate 14 10/07/17 20:00 Blood Pressure 126/82 10/07/17 20:00 O2 Sat by Pulse Oximetry 99 10/07/17 20:00 Oxygen Delivery Oxygen Delivery Room Air Psych - Lab Data Result diagrams: 10/07/17 16:56 10/07/17 16:56 Lab Results 10/07/17 10/07/17 10/07/17 Range/Units 16:56 16:56 16:56 WBC 18.4 H (4.3-11.1) K/mcL RBC 5.15 H (3.82-4.97) M/mcL Hgb 15.0 (11.5-15.4) g/dL Hct 45.3 H (35.3-44.9) % MCV 88.0 (83.0-100.0) fL MCH 29.1 (28.0-33.3) pg MCHC 33.1 (31.6-35.5) g/dL RDW 14.2 (11.5-14.5) % Plt Count 357 (140-400) K/mcL MPV 10.0 (9.4-12.4) fL Immature Gran % 0.5 (0-4) % Seg Neutrophils % 70.4 % Lymphocytes % 19.5 % Monocytes % 7.9 % Eosinophils % 1.0 % Basophils % 0.7 % Neutrophils # 13.0 H (1.6-8.9) K/mcL Lymphocytes # 3.6 (0.6-4.6) K/mcL Monocytes # 1.5 H (0.0-1.3) K/mcL Eosinophils # 0.2 (0.0-0.6) K/mcL Basophils # 0.1 (0.0-0.2) K/mcL Sodium 141 (136-145) mEq/L Potassium 3.8 (3.5-5.1) mEq/L Chloride 108 H (98-107) mEq/L Carbon Dioxide 21 L (23-29) mEq/L BUN 13 (6-20) mg/dL Creatinine 1.80 H (0.60-1.20) mg/dL Est GFR ( Amer) 42 L (> 60) Est GFR (Non-Af Amer) 34 L (> 60) BUN/Creatinine Ratio 7 (6-26) Glucose 89 (70-105) mg/dL Calculated Osmolality 292 (280-300) Calcium 9.5 (8.6-10.3) mg/dL Serum , Qual Negative (Negative) Ur Specimen Adequacy Urine Color (Yellow) Urine Clarity (Clear) Urine pH (5.0-8.0) pH Units Ur Specific [place] (1.010-1.025) Urine Protein (Neg-Trace) mg/dL Urine Glucose (UA) (Normal) mg/dL Urine Ketones (Negative) mg/dL Urine Blood (Negative) Urine Nitrite (Negative) Urine Bilirubin (Negative) Urine Urobilinogen (Normal) mg/dL Ur Leukocyte Esterase (Negative) Urine Microscopic RBC (0-3) per hpf Urine Microscopic WBC (0-3) per hpf Ur Squamous Epith Cells (None-Few) per lpf Ur Transition Epith Cell (None-Few) per hpf Ur Renal Epithelial Cell (None-Few) per hpf Urine Bacteria (None-Few) per hpf Hyaline Casts Granular Casts (None Seen) per lpf Waxy Casts (None Seen) per lpf WBC Casts (None Seen) per lpf Salicylates < 2.5 L (15.0-30.0) mg/dL Urine Opiates Screen (Bypyon=034) ng/mL Acetaminophen < 10 L (10-20) mcg/mL Ur Barbiturates Screen (Cbngsm=873) ng/mL Valproic Acid 5 L (50-100) mcg/mL Ur Phencyclidine Scrn (Cutoff=25) ng/mL Ur Amphetamines Screen (Fiqhdh=1427) ng/mL U Benzodiazepines Scrn (Ylxqey=163) ng/mL Urine Cocaine Screen (Cutoff= 300) ng/mL U Marijuana (THC) Screen (Cutoff = 50) ng/mL Ethyl Alcohol < 10 (Less than 10) mg/dL 10/07/17 10/07/17 Range/Units 18:50 18:50 WBC (4.3-11.1) K/mcL RBC (3.82-4.97) M/mcL Hgb (11.5-15.4) g/dL Hct (35.3-44.9) % MCV (83.0-100.0) fL MCH (28.0-33.3) pg MCHC (31.6-35.5) g/dL RDW (11.5-14.5) % Plt Count (140-400) K/mcL MPV (9.4-12.4) fL Immature Gran % (0-4) % Seg Neutrophils % % Lymphocytes % % Monocytes % % Eosinophils % % Basophils % % Neutrophils # (1.6-8.9) K/mcL Lymphocytes # (0.6-4.6) K/mcL Monocytes # (0.0-1.3) K/mcL Eosinophils # (0.0-0.6) K/mcL Basophils # (0.0-0.2) K/mcL Sodium (136-145) mEq/L Potassium (3.5-5.1) mEq/L Chloride (98-107) mEq/L Carbon Dioxide (23-29) mEq/L BUN (6-20) mg/dL Creatinine (0.60-1.20) mg/dL Est GFR ( Amer) (> 60) Est GFR (Non-Af Amer) (> 60) BUN/Creatinine Ratio (6-26) Glucose (70-105) mg/dL Calculated Osmolality (280-300) Calcium (8.6-10.3) mg/dL Serum , Qual (Negative) Ur Specimen Adequacy See below A Urine Color Yellow (Yellow) Urine Clarity Slightly Hazy (Clear) Urine pH 6.5 (5.0-8.0) pH Units Ur Specific [place] 1.013 (1.010-1.025) Urine Protein 100 H (Neg-Trace) mg/dL Urine Glucose (UA) 100 H (Normal) mg/dL Urine Ketones Negative (Negative) mg/dL Urine Blood Trace H (Negative) Urine Nitrite Negative (Negative) Urine Bilirubin Negative (Negative) Urine Urobilinogen Normal (Normal) mg/dL Ur Leukocyte Esterase Negative (Negative) Urine Microscopic RBC 3-5 H (0-3) per hpf Urine Microscopic WBC 5-15 H (0-3) per hpf Ur Squamous Epith Cells Many H (None-Few) per lpf Ur Transition Epith Cell Few (None-Few) per hpf Ur Renal Epithelial Cell Few (None-Few) per hpf Urine Bacteria None Seen (None-Few) per hpf Hyaline Casts Test Not Performed Granular Casts Few H (None Seen) per lpf Waxy Casts Few H (None Seen) per lpf WBC Casts Few H (None Seen) per lpf Salicylates (15.0-30.0) mg/dL Urine Opiates Screen Negative (Vadfnb=017) ng/mL Acetaminophen (10-20) mcg/mL Ur Barbiturates Screen Negative (Sgnvif=872) ng/mL Valproic Acid (50-100) mcg/mL Ur Phencyclidine Scrn Negative (Cutoff=25) ng/mL Ur Amphetamines Screen Negative (Uqheld=5580) ng/mL U Benzodiazepines Scrn Negative (Gpzgpj=797) ng/mL Urine Cocaine Screen Negative (Cutoff= 300) ng/mL U Marijuana (THC) Screen Positive H (Cutoff = 50) ng/mL Ethyl Alcohol (Less than 10) mg/dL Psychiatric Medical Clearance - Medical Clearance Checklist Medical History: Hypertension (Chronic) DVT prophylaxis (Acute) Leukocytosis (Acute) Mood disorder (Acute) Borderline personality disorder (Chronic) Anxiety (Chronic) Suicidal ideation (Acute) Bipolar disorder (Acute) Abdominal pain (Inactive) Abnormal urinalysis (Inactive) Acute anxiety (Inactive) Acute anxiety (Inactive) Bipolar disorder (Inactive) Bipolar disorder (Inactive) Bronchitis (Inactive) Cystitis (Inactive) Dehydration (Inactive) Depression (Inactive) Depression (Inactive) Gastroenteritis (Inactive) Left flank pain (Inactive) Leukocytosis (Inactive) Medication refill (Inactive) Menstrual cramp (Inactive) Nausea & vomiting (Inactive) Otitis media (Inactive) Substance abuse (Inactive) Suicidal ideation (Inactive) Tobacco abuse (Inactive) UTI (urinary tract infection) (Inactive) Urethritis (Inactive) No Social History Section defined Current Vitals: Last Vital Signs Temp 97.8 F 10/07/17 16:57 Pulse 94 10/07/17 20:00 Resp 14 10/07/17 20:00 BP 126/82 10/07/17 20:00 Pulse Ox 99 10/07/17 20:00 Psychiatric Lab Panel: Drug Levels and Toxicity 10/07/17 10/07/17 16:56 18:50 Urine Opiates Screen Negative Acetaminophen < 10 L Ur Barbiturates Screen Negative Ur Phencyclidine Scrn Negative Ur Amphetamines Screen Negative U Benzodiazepines Scrn Negative Urine Cocaine Screen Negative U Marijuana (THC) Screen Positive H Ethyl Alcohol < 10 Abnormal Labs: Abnormal lab results WBC 18.4 K/mcL (4.3-11.1) H 10/07/17 16:56 RBC 5.15 M/mcL (3.82-4.97) H 10/07/17 16:56 Hct 45.3 % (35.3-44.9) H 10/07/17 16:56 Neutrophils # 13.0 K/mcL (1.6-8.9) H 10/07/17 16:56 Monocytes # 1.5 K/mcL (0.0-1.3) H 10/07/17 16:56 Chloride 108 mEq/L (98-107) H 10/07/17 16:56 Carbon Dioxide 21 mEq/L (23-29) L 10/07/17 16:56 Creatinine 1.80 mg/dL (0.60-1.20) H 10/07/17 16:56 Est GFR ( Amer) 42 (> 60) L 10/07/17 16:56 Est GFR (Non-Af Amer) 34 (> 60) L 10/07/17 16:56 Ur Specimen Adequacy See below A 10/07/17 18:50 Urine Protein 100 mg/dL (Neg-Trace) H 10/07/17 18:50 Urine Glucose (UA) 100 mg/dL (Normal) H 10/07/17 18:50 Urine Blood Trace (Negative) H 10/07/17 18:50 Urine Microscopic RBC 3-5 per hpf (0-3) H 10/07/17 18:50 Urine Microscopic WBC 5-15 per hpf (0-3) H 10/07/17 18:50 Ur Squamous Epith Cells Many per lpf (None-Few) H 10/07/17 18:50 Granular Casts Few per lpf (None Seen) H 10/07/17 18:50 Waxy Casts Few per lpf (None Seen) H 10/07/17 18:50 WBC Casts Few per lpf (None Seen) H 10/07/17 18:50 Salicylates < 2.5 mg/dL (15.0-30.0) L 10/07/17 16:56 Acetaminophen < 10 mcg/mL (10-20) L 10/07/17 16:56 Valproic Acid 5 mcg/mL (50-100) L 10/07/17 16:56 U Marijuana (THC) Screen Positive ng/mL (Cutoff = 50) H 10/07/17 18:50 Statement of Medical Clearance: I have evaluated the patient, reviewed diagnostic information, and certify that the patient's medical condition is sufficiently stable that transfer to the psychiatric unit does not pose a significant risk of deterioration.
[2017-10-07] MEDS ORDERED: Ibuprofen 400 MG TABLET PO PRN (23:15)
[2017-10-07] MEDS: hydrOXYzine pamoate 25 MG CAPSULE PO PRN (23:19)
--- NOTE | 2017-10-08 13:14 | Psychiatry History & Physical ---
Date of Encounter: 10/08/17 Time of Encounter: 12:38 History of Present Illness Patient Stated Chief Complaint: i ran out of my medication Medicare Admission Attestation: For traditional Medicare patients the provided hospital inpatient services are reasonable and necessary and in the case of services not specified as inpatient -only under 42 CFR 419.22 (n), that they are appropriately provided as inpatient services in accordance 42 CFR 412.3. For Critical Access Hospital the patient may reasonably be expected to be discharged or transferred to a hospital within 96 hours after admission to the Critical Access Hospital. Admitted From: Emergency Dept Plans for Post Hospital Care: Home History of Present Illness: Ms. Melendez is a 27 year old female , 27-year-old patient who claims to have overdosed on different medications include gabapentin, Depakote, Latuda and ambien All of this happened within the last 24 hours. Patient had apparently told EMS that she was suicidal. She has h/o bipolar, depression , suicidal behaviours and attempts and self mutilation , borderline personality and inpatient psychiatric hospitalization. sHE AT PRESENT IS IRRITABLE STATES I am not suicidal , i am a cutter , i cut yesterday , states had ran out of medication , had refill but did not had money to get it and she was doing better so did not think needed them , till 2 days ago , sunday she had not been sleeping for few days and took more of her pills just to sleep , did not take to OD , she took 4 ambien and 4 depakote , she called her therapist and told her that and that she would like to go [facility] . so she was bought to ED. At present has been out of medications for 3 weeks and her depakote level is 5 , she is irritable , kent and mood swings and left the room angry , she at present denies suicidal ideation but is high risk and out of medication. she admitted she had 2 tall boys on sunday and Sunday , her girl friend left and she was upset , she has positive marijuana on drug screen , her wbc is 18 and will repeat UA . will need inpatient stabilization for OD and impulsivity and self mutilation and safety. will restart her medication. start respid placement . Past Med Surg Social Fam HX - Past Medical History Medical history: hypertension - Past Psychiatric History Psychiatric history: Reports: anxiety, bipolar, depression, prior suicide attempt, previous psychiatric hospitalization Family psychiatric history: Unknown Family History of Suicide: Unknown - Past Surgical History Surgical History: other - Social History Smoking Status: Former smoker Smokeless Tobacco Status: Yes Alcohol use: heavy, recent Drug use: marijuana, methamphetamine - Family History Mother Name: Mickie Melendez Age: 47 Family Member Ethnicity: Non- Living Status: Still Living Hx Family Cardiac Disorders: No Hx Family Respiratory Disorders: No Hx Family Cancer: No Hx Family GI Disorders: Yes (Crohn's disease) Hx Family Genitourinary Disorders: No Hx Family Endocrine Disorder: No Hx Family Musculoskeletal Disorders: No Hx Family Neuromuscular Disorders: No Hx Family Neurologic Disorders: No Hx Family HEENT Disorders: No Hx Family Autoimmune Disorders: No Hx Family Reproductive Disorders: No Hx Family Psychosocial Disorders: No Hx Family Medical Disorders: No Father History Unknown: Yes Adopted: [place]: Socrates Melendez Age: 48 Family Member Ethnicity: Non- Living Status: Still Living Hx Family Cardiac Disorders: Yes Hx Family Respiratory Disorders: Yes (needs CPAP) Hx Family Cancer: No Hx Family GI Disorders: No Hx Family Genitourinary Disorders: No Hx Family Endocrine Disorder: Yes (Diabetic) Hx Family Musculoskeletal Disorders: No Hx Family Neuromuscular Disorders: No Hx Family Neurologic Disorders: No Hx Family HEENT Disorders: No Hx Family Autoimmune Disorders: No Hx Family Reproductive Disorders: No Hx Family Psychosocial Disorders: No Hx Family Medical Disorders: No Medications & Allergies Zolpidem [Ambien] 10 mg PO HS 04/09/15 [History] Divalproex (24 HR) [Depakote ER (24 HR)] 1,000 mg PO HS 06/08/17 [History] Gabapentin [Neurontin] 800 mg PO TID 06/08/17 [History] Lurasidone HCl [Latuda] 80 mg PO DAILY 06/08/17 [History] Ibuprofen [Ibuprofen] 800 mg PO TID 10/08/17 [History] Norethindrone-E.estradiol-Iron [Junel Fe 1.5 mg-30 Mcg Tablet] 1 tab PO DAILY [History] 3 Allergy/AdvReac Type Severity Reaction Status Date / Time atomoxetine [From Strattera] Allergy See Verified 10/08/17 06:50 Comments lidocaine Allergy See Verified 10/08/17 06:50 Comments morphine Allergy See Verified 10/08/17 06:50 Comments promethazine Allergy See Verified 10/08/17 06:50 Comments trazodone Allergy Anaphylaxis Verified 10/08/17 06:50 clonazepam [From Klonopin] AdvReac Depression Verified 10/08/17 06:50 quetiapine [From Seroquel] AdvReac Itching Verified 10/08/17 06:50 nicotine patch AdvReac Rash Uncoded 10/08/17 06:50 Review of Systems Psychiatric: Reports: depression, anxiety, abnormal sleep pattern, suicidal ideation, hopelessness, irritability, mood swings Exam - HEENT Head exam IM: Present: atraumatic Eye exam IM: Present: EOMI, normal appearance, PERRL ENT exam IM: Present: normal exam - Neurological Neurological exam: Present: CN II-XII intact - Respiratory Respiratory exam IM: Present: CTAB - GI/Abdominal GI/Abdominal exam IM: Present: normal bowel sounds, soft. Absent: tenderness - Extremities Extremities exam IM: Present: full ROM - Skin Skin exam IM: Present: dry, warm - Constitutional Vitals: Temp Pulse Resp BP Pulse Ox 97.2 F L 78 18 120/83 99 10/08/17 09:00 10/08/17 09:00 10/08/17 09:00 10/08/17 09:00 10/07/17 20:00 General appearance: age & developmentally appropriate, well-groomed, well- nourished - Musculoskeletal Gait: normal Station: relaxed Strength & Tone: normal for patient - Psychiatric Patient Orientation: Yes Person, Yes Time, Yes Place Level of alertness: Alert Behavior: anxious, impulsive Psychomotor activity: Increased Eye Contact: Minimal Contact Mood Description: Angry, Irritable Affect description: congruent with mood Speech Volume: Normal Speech pattern: pressured Language & Vocabulary: consistent with education Thought Process: Circumstantial Thought Content: Yes Suicidal ideation Perceptual Disturbances: No Auditory hallucinations, No Visual hallucinations Attention Span Ability: Unable to Sustain Attention Memory Description: Grossly Intact Patient Reliability: Questionable Historian Fund of knowledge: Yes abstraction ability, Yes average, Yes aware of current events Intelligence Estimate: Average Judgment: Limited Insight: Partial Results - Labs Labs: Laboratory Last Values WBC 18.4 K/mcL (4.3-11.1) H 10/07/17 16:56 RBC 5.15 M/mcL (3.82-4.97) H 10/07/17 16:56 Hgb 15.0 g/dL (11.5-15.4) 10/07/17 16:56 Hct 45.3 % (35.3-44.9) H 10/07/17 16:56 MCV 88.0 fL (83.0-100.0) 10/07/17 16:56 MCH 29.1 pg (28.0-33.3) 10/07/17 16:56 MCHC 33.1 g/dL (31.6-35.5) 10/07/17 16:56 RDW 14.2 % (11.5-14.5) 10/07/17 16:56 Plt Count 357 K/mcL (140-400) 10/07/17 16:56 MPV 10.0 fL (9.4-12.4) 10/07/17 16:56 Immature Gran % 0.5 % (0-4) 10/07/17 16:56 Seg Neutrophils % 70.4 % 10/07/17 16:56 Lymphocytes % 19.5 % 10/07/17 16:56 Monocytes % 7.9 % 10/07/17 16:56 Eosinophils % 1.0 % 10/07/17 16:56 Basophils % 0.7 % 10/07/17 16:56 Neutrophils # 13.0 K/mcL (1.6-8.9) H 10/07/17 16:56 Lymphocytes # 3.6 K/mcL (0.6-4.6) 10/07/17 16:56 Monocytes # 1.5 K/mcL (0.0-1.3) H 10/07/17 16:56 Eosinophils # 0.2 K/mcL (0.0-0.6) 10/07/17 16:56 Basophils # 0.1 K/mcL (0.0-0.2) 10/07/17 16:56 Sodium 141 mEq/L (136-145) 10/07/17 16:56 Potassium 3.8 mEq/L (3.5-5.1) 10/07/17 16:56 Chloride 108 mEq/L (98-107) H 10/07/17 16:56 Carbon Dioxide 21 mEq/L (23-29) L 10/07/17 16:56 BUN 13 mg/dL (6-20) 10/07/17 16:56 Creatinine 1.80 mg/dL (0.60-1.20) H 10/07/17 16:56 Est GFR ( Amer) 42 (> 60) L 10/07/17 16:56 Est GFR (Non-Af Amer) 34 (> 60) L 10/07/17 16:56 BUN/Creatinine Ratio 7 (6-26) 10/07/17 16:56 Glucose 89 mg/dL (70-105) 10/07/17 16:56 Calculated Osmolality 292 (280-300) 10/07/17 16:56 Calcium 9.5 mg/dL (8.6-10.3) 10/07/17 16:56 Serum , Qual Negative (Negative) 10/07/17 16:56 Ur Specimen Adequacy See below A 10/07/17 18:50 Urine Color Yellow (Yellow) 10/07/17 18:50 Urine Clarity Slightly Hazy (Clear) 10/07/17 18:50 Urine pH 6.5 pH Units (5.0-8.0) 10/07/17 18:50 Ur Specific [place] 1.013 (1.010-1.025) 10/07/17 18:50 Urine Protein 100 mg/dL (Neg-Trace) H 10/07/17 18:50 Urine Glucose (UA) 100 mg/dL (Normal) H 10/07/17 18:50 Urine Ketones Negative mg/dL (Negative) 10/07/17 18:50 Urine Blood Trace (Negative) H 10/07/17 18:50 Urine Nitrite Negative (Negative) 10/07/17 18:50 Urine Bilirubin Negative (Negative) 10/07/17 18:50 Urine Urobilinogen Normal mg/dL (Normal) 10/07/17 18:50 Ur Leukocyte Esterase Negative (Negative) 10/07/17 18:50 Urine Microscopic RBC 3-5 per hpf (0-3) H 10/07/17 18:50 Urine Microscopic WBC 5-15 per hpf (0-3) H 10/07/17 18:50 Ur Squamous Epith Cells Many per lpf (None-Few) H 10/07/17 18:50 Ur Transition Epith Cell Few per hpf (None-Few) 10/07/17 18:50 Ur Renal Epithelial Cell Few per hpf (None-Few) 10/07/17 18:50 Urine Bacteria None Seen per hpf (None-Few) 10/07/17 18:50 Hyaline Casts Test Not Performed 10/07/17 18:50 Granular Casts Few per lpf (None Seen) H 10/07/17 18:50 Waxy Casts Few per lpf (None Seen) H 10/07/17 18:50 WBC Casts Few per lpf (None Seen) H 10/07/17 18:50 Salicylates < 2.5 mg/dL (15.0-30.0) L 10/07/17 16:56 Urine Opiates Screen Negative ng/mL (Igctep=842) 10/07/17 18:50 Acetaminophen < 10 mcg/mL (10-20) L 10/07/17 16:56 Ur Barbiturates Screen Negative ng/mL (Cpeapx=689) 10/07/17 18:50 Valproic Acid 5 mcg/mL (50-100) L 10/07/17 16:56 Ur Phencyclidine Scrn Negative ng/mL (Cutoff=25) 10/07/17 18:50 Ur Amphetamines Screen Negative ng/mL (Bfjzfp=4857) 10/07/17 18:50 U Benzodiazepines Scrn Negative ng/mL (Nlpwah=933) 10/07/17 18:50 Urine Cocaine Screen Negative ng/mL (Cutoff= 300) 10/07/17 18:50 U Marijuana (THC) Screen Positive ng/mL (Cutoff = 50) H 10/07/17 18:50 Ethyl Alcohol < 10 mg/dL (Less than 10) 10/07/17 16:56 Assessment and Plan (1) Bipolar disorder Current visit: Yes Status: Acute Plan: Admit inpatient for safety and stabilization, Close observation, Suicide Precautions per unit protocol, Encourage participation in unit milieu, Group Therapy, Monitor sleep, Monitor appetite, Family/Supportive other meeting Additional Plan: restart all her medications safety protocol. Risks, benefits, side effects, alternatives discussed w/pt: Yes Patient agreeable to treatment: Yes Plans for Post Hospital Care: at Home Estimated Length of Stay (Days): 3 Qualifiers: Active/Remission status: remission status unspecified Qualified Code(s): F31.9 - Bipolar disorder, unspecified (2) Suicidal ideation Current visit: No Status: Acute Plan: Admit inpatient for safety and stabilization, Close observation, Suicide Precautions per unit protocol, Encourage participation in unit milieu, Group Therapy, Monitor sleep, Monitor appetite, Family/Supportive other meeting Risks, benefits, side effects, alternatives discussed w/pt: Yes Patient agreeable to treatment: Yes Plans for Post Hospital Care: at Home (3) Borderline personality disorder Current visit: No Status: Chronic Plan: Admit inpatient for safety and stabilization, Suicide Precautions per unit protocol, Group Therapy, Family/Supportive other meeting Risks, benefits , side effects, alternatives discussed w/pt: Yes Patient agreeable to treatment: Yes Plans for Post Hospital Care: at Home
[2017-10-08] MEDS ORDERED: Nicotine 21 MG PATCH.TD24 TD SCH (14:00)
[2017-10-08] MEDS: Ibuprofen 800 MG TABLET PO SCH ×2 (14:44→22:52)
[2017-10-08] MEDS ORDERED: NON-FORMULARY MEDICATION 1 EACH EACH (Gabapentin [Neurontin] 800 MG) PO SCH (15:00)
--- NOTE | 2017-10-08 18:59 | Electrocardiograph Report ---
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
[2017-10-08] MEDS ORDERED: Divalproex (24 HR) 500 MG TABLET PO SCH (21:00)
[2017-10-08 22:13] VITALS: BP 119/78
[2017-10-08] MEDS: hydrOXYzine pamoate 25 MG CAPSULE PO PRN (22:52)
[2017-10-08] MEDS ORDERED: Aspirin 325 MG TABLET PO ONE (23:23)
--- NOTE | 2017-10-09 00:52 | Event Note ---
Date of Encounter: 10/08/17 Time of Encounter: 23:42
--- NOTE | 2017-10-09 00:55 | Internal Medicine Consult Note ---
Date of Encounter: 10/09/17 Time of Encounter: 00:30 - Assessment and plan (1) Chest pain Current Visit: Yes Status: Acute Assessment and plan: Acute CP that pt. reports as centralized in chest w/o radiation and becomes worse w/deep inspiration and coughing. Reports started at 22:00 and rated as 7/ 10. On exam, pt. reports 2-3/10. Stat troponin ordered which is <0.03. Will trend x2. Lungs clear on auscultation. Stat EKG shows sinus rhythm with first- degree AV block. Previous EKG dated 10/08/19 shows sinus rhythm and normal ECG. 324 mg aspirin given as well as 80 mg Lipitor. Will monitor troponins at 06 :00 and 12:00 on 10/09/17 to determine need for further cardiac work-up/ Echocardiogram. Pt. is low risk for cardiac event based on current troponin and waning CP. Infectious process versus cardiac. Leukocytosis present at 18.4 ( drug overdose causing leukocytosis versus infectious process). 1V CXR ordered to assess for PNA/lung infection. Inpatient. Qualifiers: Chest pain type: chest pain on breathing Qualified Code(s): R07.1 - Chest pain on breathing; R07.81 - Pleurodynia (2) SOB (shortness of breath) Current Visit: Yes Status: Acute Assessment and plan: Acute SOB. On exam, pts. RR 16 and unlabored. No wheezes or rhonchi on auscultation. Encourage deep-breathing and ambulation. Pt. reports smoking 1-2 cigarettes daily. Smoking cessation encouraged. 1V CXR ordered. (3) Leukocytosis Current Visit: Yes Status: Acute Assessment and plan: Acute leukocytosis w/WBC of 18.4 on admission. Leukocytosis from drug overdose versus infection process. VS during exam: temp 97.9F, HR 88, RR 16, BP 104/70. Denies feeling sick or any ill sx. D/t current CP w/inspiration and cough, pt. would benefit from CXR to assess for possible pneumonia or infection process. 1V CXR ordered. Qualifiers: Leukocytosis type: unspecified Qualified Code(s): D72.829 - Elevated white blood cell count, unspecified (4) Cough Current Visit: Yes Status: Acute Assessment and plan: Acute cough that pt. reports has been present for two weeks. Pt. reports smoking 1-2 cigarettes daily. Tox screen + for marijuana. Pleuritic pain w/ coughing. Mucinex ordered. 1V CXR ordered. (5) DVT prophylaxis Current Visit: Yes Status: Acute Assessment and plan: Ambulation around unit daily for DVT prophylaxis as tolerated. - Time Spent With Patient Total time spent is greater than 50% in coordination of care (as documented) at patient's floor/unit and/or counseling patient: 25 - 35 minutes Internal Medicine - CN: HPI - Data of Consult Patient: new to practice Requesting Physician: Steve Nicolas MD - Consult Narrative History of present illness: Ms. Melendez is a 27 year old female w/no medical hx presents from 1A w/CC of chest pain that began approximately at 22:00 on 10/08/17. Pt. reports pain worse w/deep inspiration and coughing. Also reports SOB which is worse w/exertion. No alleviating factors. Pt. denies hx of cardiac disease, previous OR, heart cath or stents. Does report familial hx of HTN and DM in father and sister. Denies recent illness, fever, chills, nausea, vomiting, headache, changes in vision, palpitations, abdominal pain, diarrhea, constipation, numbness, tingling, dizziness, lightheadedness, pre-syncope, or syncope. Past Med Surg Social Fam HX - Past Medical History Source: patient, old records reviewed Psychiatric history: anxiety, bipolar, depression, prior suicide attempt, previous psychiatric hospitalization - Past Surgical History Surgical History: other - Social History Smoking Status: Former smoker Packs per day: 1-2 cigarettes per day Smokeless Tobacco Status: Yes Alcohol use: heavy, recent Drug use: marijuana, methamphetamine Current living situation: Home Activity Level: Independent ambulation Recent Out of Country Travel Within the Last 8 Weeks: No Exposure or Possible Exposure to Illness During Travel: No - Family History Mother Name: Mickie Melendez Age: 47 Family Member Ethnicity: Non- Living Status: Still Living Hx Family Cardiac Disorders: No Hx Family Respiratory Disorders: No Hx Family Cancer: No Hx Family GI Disorders: Yes (Crohn's disease) Hx Family Genitourinary Disorders: No Hx Family Endocrine Disorder: No Hx Family Musculoskeletal Disorders: No Hx Family Neuromuscular Disorders: No Hx Family Neurologic Disorders: No Hx Family HEENT Disorders: No Hx Family Autoimmune Disorders: No Hx Family Reproductive Disorders: No Hx Family Psychosocial Disorders: No Hx Family Medical Disorders: No Father History Unknown: Yes Adopted: [place]: Socrates Melendez Age: 48 Family Member Ethnicity: Non- Living Status: Still Living Hx Family Cardiac Disorders: Yes (HTN) Hx Family Respiratory Disorders: Yes (needs CPAP) Hx Family Cancer: No Hx Family GI Disorders: No Hx Family Genitourinary Disorders: No Hx Family Endocrine Disorder: Yes (DM) Hx Family Musculoskeletal Disorders: No Hx Family Neuromuscular Disorders: No Hx Family Neurologic Disorders: No Hx Family HEENT Disorders: No Hx Family Autoimmune Disorders: No Hx Family Reproductive Disorders: No Hx Family Psychosocial Disorders: No Hx Family Medical Disorders: No Sister Family Member Ethnicity: Non- Living Status: Still Living Hx Family Endocrine Disorder: Yes (DM) - Constitutional Constitutional: as per HPI - EENT Eyes: as per HPI Ears: as per HPI Nose, mouth and throat: as per HPI - Breasts Breasts: as per HPI - Cardiovascular Cardiovascular ROS IM: as per HPI, chest pain (Centralized in chest w/o radiation that is worse w/deep inspiration or coughing.), dyspnea, dyspnea on exertion - Respiratory Respiratory: as per HPI, cough, dyspnea, dyspnea on exertion - Gastrointestinal Gastrointestinal: as per HPI - Genitourinary Genitourinary: as per HPI Menstruation: as per HPI - Musculoskeletal Musculoskeletal ROS IM: as per HPI - Integumentary Integumentary IM: as per HPI - Neurological Neurological ROS: as per HPI - Psychiatric Psychiatric: as per HPI, anxiety, depression, suicidal ideation - Endocrine Endocrine IM: as per HPI - Hematologic/Lymphatic Hematologic/Lymphatic: as per HPI - Allergic/Immunologic Allergic/Immunologic: as per HPI Internal Medicine - CN: Meds Zolpidem [Ambien] 10 mg PO HS 04/09/15 [History] Divalproex (24 HR) [Depakote ER (24 HR)] 1,000 mg PO HS 06/08/17 [History] Gabapentin [Neurontin] 800 mg PO TID 06/08/17 [History] Lurasidone HCl [Latuda] 80 mg PO DAILY 06/08/17 [History] Ibuprofen [Ibuprofen] 800 mg PO TID 10/08/17 [History] Norethindrone-E.estradiol-Iron [Junel Fe 1.5 mg-30 Mcg Tablet] 1 tab PO DAILY [History] 3 Allergy/AdvReac Type Severity Reaction Status Date / Time atomoxetine [From Strattera] Allergy See Verified 10/08/17 06:50 Comments lidocaine Allergy See Verified 10/08/17 06:50 Comments morphine Allergy See Verified 10/08/17 06:50 Comments promethazine Allergy See Verified 10/08/17 06:50 Comments trazodone Allergy Anaphylaxis Verified 10/08/17 06:50 clonazepam [From Klonopin] AdvReac Depression Verified 10/08/17 06:50 quetiapine [From Seroquel] AdvReac Itching Verified 10/08/17 06:50 nicotine patch AdvReac Rash Uncoded 10/08/17 06:50 Internal Medicine - CN: Exam - Constitutional Vitals: Temp Pulse Resp BP Pulse Ox 97.6 F 80 16 119/78 99 10/08/17 21:00 10/08/17 21:00 10/08/17 21:00 10/08/17 21:00 10/07/17 20:00 General appearance IM: Present: cooperative, A&O X 3, morbidly obese, answers questions appropriately - Head Head exam: Present: normal inspection - Eye Eye exam: Present: PERRL, conjuntiva pink, sclera anicteric Pupils: Present: PERRL - ENT ENT exam: Present: normal exam - Neck Neck exam general surgery: Present: supple, trachea midline - Respiratory Respiratory exam: Present: CTAB - Cardiovascular Cardiovascular exam IM: Present: RRR, +S1, +S2 - GI/Abdominal GI/Abdominal exam IM: Present: soft, no peritoneal signs - Rectal Rectal exam: Present: deferred - Additional comments: exam deferred. - Extremities Exam Extremities exam IM: Present: warm, radial pulses palpable and symmetrical - Back Exam Back exam: Present: normal inspection - Neurological Exam Neurological exam: Present: alert, oriented X3, no focal deficits - Psychiatric Psychiatric exam: Present: normal affect, normal mood - Skin Skin exam IM: Present: dry, intact Internal Medicine - CN: Reslt - Labs CBC & Chem 7: 10/07/17 16:56 10/07/17 16:56 Labs: Cardiac Enzymes 10/09/17 Range/Units 00:00 Troponin I < 0.03 (< 0.04) ng/mL - EKG Data EKG shows normal: sinus rhythm - EKG Data Prior EKG available for review: yes EKG comments: 10/09/17 01:01 EKG dated shows sinus rhythm. EKG dated 10/07/17 shows sinus rhythm and normal ECG. EKG dated 10/08/17 shows sinus rhythm with first-degree AV block. Consult Discharge Plan - Plan Referrals: [facility] [Outside] - 10/09/17 3:30 pm (The above appointment is with Faye Suarez for mental health and substance abuse counseling services. You will resume daily group services at [facility] on discharge as well. You will also see Florence Prasad for outpatient psychiatric assessment and medication management services on 10/30/2017 at 9:30 AM. )
[2017-10-09 06:37] LABS: Bilirubin,Urine Negative (Negative); Blood,Urine Small (Negative); Clarity,Urine Clear (Clear); Color,Urine Yellow (Yellow); Glucose,Urine (UA) Normal (Normal); Ketones,Urine Negative (Negative); Leukocyte Esterase,Urine Negative (Negative); Nitrite,Urine Negative (Negative); PH,Urine 5.5 pH Units (5.0-8.0); Protein,Urine Negative (Neg-Trace); Specific Gravity,Urine 1.028 (1.010-1.025); Urobilinogen,Urine Normal (Normal)
[2017-10-09 06:39] LABS: Bacteria,Urine None Seen per hpf (None-Few); Hyaline Casts,Urine None Seen per lpf (None-Few); Squamous Epithelial Cell,Urine Many per lpf (None-Few)
[2017-10-09] MEDS ORDERED: NORETHINDRONE E ESTRADIOL IRON PO SCH (09:00)
--- NOTE | 2017-10-09 16:20 | Electrocardiograph Report ---
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
== END 2017-10-09 09:06 | disposition other institution (70) ==
LOC: 1ANU 16:10 → EMEROO 16:10 → SUATTDRO 21:41 → 1ANU 22:04
PROVIDERS: ADMIT Psychiatry & Neurology Psychiatry; ATTEND Hospitalist

== ENCOUNTER 2017-10-09 08:06 | Observation (INO) ==
--- NOTE | 2017-10-09 08:16 | Internal Med History&Physical ---
Date of Encounter: 10/09/17 Time of Encounter: 08:08 Internal Medicine - H&P: HPI Chief complaint: ARF Admitted From: Direct Admit Plans for Post Hospital Care: Transfer Psych Facility History of present illness: Ms. Melendez is a 27 year old female who has history of anxiety bipolar depression she was admitted to inpatient psych for cysts suicide attempt , who developed acute chest pain last night, we will consult for acute chest pain. Patient had a negative troponin and the chest x-ray and. When I saw the patient this morning her chest pain is down to 2 over off 10, located to the mid of chest was chest wall tenderness. Her lab shows acute renal failure creatinine 1.8 her baseline 0.6. Patient also reported that she had a history of acute renal failure from vancomycin IV infusion. They are unable to provide to IV fluids inpatient psych unit. Patient is going be transferred to medicine floor with one-to-one sitter. She also receives high-dose ibuprofen on 800 mg TID. Past Med Surg Social Fam HX - Past Medical History Medical history: hypertension Psychiatric history: anxiety, bipolar, depression, prior suicide attempt, previous psychiatric hospitalization - Past Surgical History Surgical History: other - Social History Smoking Status: Former smoker Smokeless Tobacco Status: Yes Alcohol use: heavy, recent Drug use: marijuana, methamphetamine - Family History Mother Family Member Ethnicity: Non- Living Status: Still Living Hx Family Cardiac Disorders: No Hx Family Respiratory Disorders: No Hx Family Cancer: No Hx Family GI Disorders: Yes (Crohn's disease) Hx Family Endocrine Disorder: No Hx Family Neuromuscular Disorders: No Hx Family Neurologic Disorders: No Hx Family HEENT Disorders: No Hx Family Autoimmune Disorders: No Father Adopted: No Family Member Ethnicity: Non- Living Status: Still Living Hx Family Cardiac Disorders: Yes (HTN) Hx Family Respiratory Disorders: Yes (needs CPAP) Hx Family Cancer: No Hx Family GI Disorders: No Hx Family Endocrine Disorder: Yes (DM) Hx Family Neuromuscular Disorders: No Hx Family Neurologic Disorders: No Hx Family HEENT Disorders: No Hx Family Autoimmune Disorders: No Sister Family Member Ethnicity: Non- Living Status: Still Living Hx Family Endocrine Disorder: Yes (DM) Internal Medicine - H&P: Meds Zolpidem [Ambien] 10 mg PO HS 04/09/15 [History] Divalproex (24 HR) [Depakote ER (24 HR)] 1,000 mg PO HS 06/08/17 [History] Gabapentin [Neurontin] 800 mg PO TID 06/08/17 [History] Lurasidone HCl [Latuda] 80 mg PO DAILY 06/08/17 [History] Ibuprofen [Ibuprofen] 800 mg PO TID 10/08/17 [History] Norethindrone-E.estradiol-Iron [Junel Fe 1.5 mg-30 Mcg Tablet] 1 tab PO DAILY [History] 3 Allergy/AdvReac Type Severity Reaction Status Date / Time atomoxetine [From Strattera] Allergy See Verified 10/08/17 06:50 Comments lidocaine Allergy See Verified 10/08/17 06:50 Comments morphine Allergy See Verified 10/08/17 06:50 Comments promethazine Allergy See Verified 10/08/17 06:50 Comments trazodone Allergy Anaphylaxis Verified 10/08/17 06:50 clonazepam [From Klonopin] AdvReac Depression Verified 10/08/17 06:50 quetiapine [From Seroquel] AdvReac Itching Verified 10/08/17 06:50 nicotine patch AdvReac Rash Uncoded 10/08/17 06:50 All Systems PM: A 10-system review of systems was performed and is negative for pertinent findings except as documented above in the HPI. - Constitutional General appearance: Present: A&O X 3, morbidly obese Exam: CONSTITUTIONAL: Patient appears as an age appropriate female well developed, in no acute distress. EYES Clear sclerae, bilateral pupils are equal, reactive to light and accommodation. Extraocular movements are intact RESPIRATORY: No accessory muscle use, bilateral clear to auscultation, no wheezing, no crackles/rales. CARDIOVASCULAR: Regular heart rate, normal S1 and S2, no murmurs GASTROINTESTINAL: bowel sounds present, soft, no tenderness. No hepatosplenomegaly. No bilateral CVA tenderness MUSCULOSKELETAL: Joints in normal range of motion, no clubbing, no edema, no cyanosis. Bilateral peripheral pulses 2+ LYMPHATIC no lymphadenopathy in neck, groin and axilla bilaterally, no thyromegaly. NEUROLOGIC: CN II to XII are grossly intact, no focal neurological deficit. Deep tendon reflexes 2+ bilaterally. Normal light touch sensation to upper and lower extremity PSYCHIATRIC: Oriented x3, with good insight, mood is euthymic. No hallucinations or delusions. SKIN: Skin warm and dry, no rashes, no open wound. - Assessment and plan (1) ARF (acute renal failure) Status: Acute Assessment and plan: Acute renal failure likely from dehydration high dose ibuprofen. DC ibuprofen IV fluids Follow up creatinine a.m. Qualifiers: Acute renal failure type: with other specified pathological lesion Qualified Code(s): N17.8 - Other acute kidney failure (2) Chest pain Status: Acute Assessment and plan: Chest pain with chest wall tenderness, troponin less than <0.03 Qualifiers: Chest pain type: chest pain on breathing Qualified Code(s): R07.1 - Chest pain on breathing; R07.81 - Pleurodynia (3) Bipolar disorder Status: Acute Assessment and plan: Consult a psychiatrist Qualifiers: Active/Remission status: remission status unspecified Qualified Code(s): F31.9 - Bipolar disorder, unspecified (4) Leukocytosis Status: Acute Assessment and plan: Negative chest x-ray negative UTI, afebrile we will close monitor Qualifiers: Leukocytosis type: unspecified Qualified Code(s): D72.829 - Elevated white blood cell count, unspecified (5) Suicidal ideation Status: Acute Assessment and plan: One-to-one sitter, consult a psychiatrist (6) Borderline personality disorder Status: Chronic - Time Spent With Patient Total time spent is greater than 50% in coordination of care (as documented) at patient's floor/unit and/or counseling patient: Greater than 35 minutes
[2017-10-09] MEDS ORDERED: Naloxone 0.4 MG/ML INJ IVP PRN (11:15)
[2017-10-09] MEDS: 0.9 % Sodium Chloride 1,000 ML IVC SCH (12:32)
--- NOTE | 2017-10-09 13:56 | Discharge Summary ---
Date of Encounter: 10/09/17 Time of Encounter: 13:00 Diagnosis - Discharge Diagnosis (1) Bipolar disorder Status: Acute Qualifiers: Active/Remission status: currently active Current bipolar episode type: mixed Current episode severity: moderate Qualified Code(s): F31.62 - Bipolar disorder, current episode mixed, moderate (2) Borderline personality disorder Status: Chronic (3) ARF (acute renal failure) Status: Acute Comments: patient discharged to medical floor. Qualifiers: Acute renal failure type: with other specified pathological lesion Qualified Code(s): N17.8 - Other acute kidney failure Medications - Discharge Medications Zolpidem [Ambien] 10 mg PO HS 04/09/15 [History] Divalproex (24 HR) [Depakote ER (24 HR)] 1,000 mg PO HS 06/08/17 [History] Gabapentin [Neurontin] 800 mg PO TID 06/08/17 [History] Lurasidone HCl [Latuda] 80 mg PO DAILY 06/08/17 [History] Ibuprofen [Ibuprofen] 800 mg PO TID 10/08/17 [History] Norethindrone-E.estradiol-Iron [Junel Fe 1.5 mg-30 Mcg Tablet] 1 tab PO DAILY [History] 3 Allergy/AdvReac Type Severity Reaction Status Date / Time atomoxetine [From Strattera] Allergy See Verified 10/08/17 06:50 Comments lidocaine Allergy See Verified 10/08/17 06:50 Comments morphine Allergy See Verified 10/08/17 06:50 Comments promethazine Allergy See Verified 10/08/17 06:50 Comments trazodone Allergy Anaphylaxis Verified 10/08/17 06:50 clonazepam [From Klonopin] AdvReac Depression Verified 10/08/17 06:50 quetiapine [From Seroquel] AdvReac Itching Verified 10/08/17 06:50 nicotine patch AdvReac Rash Uncoded 10/08/17 06:50 Provider Date of admission: 10/09/17 09:16 Primary care physician: Vicenta Shah MD Psychiatry Exam - Constitutional Vitals: Temp Pulse Resp BP Pulse Ox 97.7 F 76 16 105/71 93 10/09/17 11:04 10/09/17 11:04 10/09/17 11:04 10/09/17 11:04 10/09/17 11:04 General appearance: age & developmentally appropriate, well-groomed, well- nourished - Musculoskeletal Gait: normal Station: relaxed Strength & Tone: normal for patient - Psychiatric Patient Orientation: Yes Person, Yes Time, Yes Place Level of alertness: Alert Behavior: cooperative, anxious Psychomotor activity: Normal Eye Contact: Maintains Eye Contact Mood Description: Euthymic/stable Affect description: congruent with mood, full range Speech Volume: Normal Speech pattern: normal rate, normal rhythm, normal tone, fluent, spontaneous Language & Vocabulary: consistent with education Thought Process: Linear, Goal Oriented Thought Content: No Suicidal ideation, No Homicidal ideation, No Overt delusions Perceptual Disturbances: No Auditory hallucinations, No Visual hallucinations Attention Span Ability: Capable of Focused Attention Memory Description: Grossly Intact Patient Reliability: Reliable Historian Fund of knowledge: Yes abstraction ability, Yes aware of current events Intelligence Estimate: Average Judgment: Fair Insight: Partial Hospital Course Hospital course: Ms. Melendez is a 27 year old female was admitted yesterday for observation as she came to ED after she called her therapist and wanted to go to respid and told her had some alcohol and used marijuana and off medications for 3-4 weeks and was not feeling good so took 4 pills of depakote and latuda and some other not to hurt self but to get some sleep as not sleeping well and stress as GF left her. During her eval she denied suicidal ideations, stated i just want my medicine and want to leave, she has h/o multiple inpatient and si and self mutilation. During her course of hospitalization her UA was not good and her creatinine was high so neurontinwas put on hold and UA and culture done , during late evening she c/o chest pain , consult was called her tropinin level were fine and when in AM medicne evaluated her and found creatinine is high and was then dc from 1A to Inpatient medical floor. Appreciate medicine consult and their input. patient was then was consulted on medical floor and was seen there. Time spent discussing smoking cessation with patient: 3 to 10 minutes Does patient wish to continue nicotine replacement upon disc: No - Time Spent with Patient Total time spent providing and/or coordinating discharge services: Less than 30 minutes Assessment and Plan - Patient/Caregiver Discharge Instructions Activity: resume usual activities as tolerated (patient admitted to medical floor for treatment of ARF) Diet: regular diet - Follow up Plan Follow up with: Vicenta Shah MD [Primary Care Provider] - Overall status at discharge: other Disposition: Admitted As Inpatient Quality - Multiple Antipsychotics Patient discharged on 2 or more antipsychotic medications: No Procedures - Procedures Procedures: Medication Management, Crisis Stabilization, Supportive Therapy, Group Therapy, Psychoeducational Therapy
--- NOTE | 2017-10-09 14:15 | Consult Note ---
Date of Encounter: 10/09/17 Time of Encounter: 13:10 Assessment & Recommendation (1) Bipolar disorder Current visit: No Status: Acute Qualifiers: Active/Remission status: currently active Current bipolar episode type: mixed Current episode severity: moderate Qualified Code(s): F31.62 - Bipolar disorder, current episode mixed, moderate (2) Borderline personality disorder Current visit: No Status: Chronic (3) ARF (acute renal failure) Current visit: No Status: Acute Qualifiers: Acute renal failure type: with other specified pathological lesion Qualified Code(s): N17.8 - Other acute kidney failure History of Present Illness Patient: known to practice within the last 3 years Requesting Physician: Vicenta Shah MD Reason for consult: follow up as transfered to medical floor for ARF History of present illness: Ms. Melendez is a 27 year old female with h/o Bipolar, borderline personality, non compliance and poly substance use was admitted to for observation for her being off medication and suicidal ideations which she denied both in ED and inpatient , she has h/o cutting self and stopping her medication. She was started on all her medication except gabapentin as had high creatinine and UA was repeated and Urine culture were sent , patient c/o chest pain on unit and medicine consult was given and we appreciate their input , patient was transfered to Medical floor for rx of ARF. At present she was seen on medical floor neaar her bed side , she agreed to stay and have her treatment complete and states i am feeling better as my meds are started, she denies suicidal ideation , no psychosis , moods anxious , patient had visit from her filter worker MS Palma Armas with whom our tanyard worker got information about patient. At present continue all her meds DC neurontin , i alsi advised patient not to take gabapentin secondary to renal condition , she acknowledged . dc 1:1 as patient not in danger to self/others , she was planned to be dc from today to respid. CC: Vicenta Shah MD Past Med Surg Social Fam HX - Past Medical History Medical history: hypertension - Past Psychiatric History Psychiatric history: Reports: anxiety, bipolar, depression, prior suicide attempt, previous psychiatric hospitalization Family psychiatric history: Unknown Family History of Suicide: Unknown - Past Surgical History Surgical History: other - Social History Smoking Status: Former smoker Smokeless Tobacco Status: Yes Alcohol use: heavy, recent Drug use: marijuana, methamphetamine - Family History Mother Family Member Ethnicity: Non- Living Status: Still Living Hx Family Cardiac Disorders: No Hx Family Respiratory Disorders: No Hx Family Cancer: No Hx Family GI Disorders: Yes (Crohn's disease) Hx Family Endocrine Disorder: No Hx Family Neuromuscular Disorders: No Hx Family Neurologic Disorders: No Hx Family HEENT Disorders: No Hx Family Autoimmune Disorders: No Father Adopted: No Family Member Ethnicity: Non- Living Status: Still Living Hx Family Cardiac Disorders: Yes (HTN) Hx Family Respiratory Disorders: Yes (needs CPAP) Hx Family Cancer: No Hx Family GI Disorders: No Hx Family Endocrine Disorder: Yes (DM) Hx Family Neuromuscular Disorders: No Hx Family Neurologic Disorders: No Hx Family HEENT Disorders: No Hx Family Autoimmune Disorders: No Sister Family Member Ethnicity: Non- Living Status: Still Living Hx Family Endocrine Disorder: Yes (DM) Medications & Allergies Zolpidem [Ambien] 10 mg PO HS 04/09/15 [History] Divalproex (24 HR) [Depakote ER (24 HR)] 1,000 mg PO HS 06/08/17 [History] Gabapentin [Neurontin] 800 mg PO TID 06/08/17 [History] Lurasidone HCl [Latuda] 80 mg PO DAILY 06/08/17 [History] Ibuprofen [Ibuprofen] 800 mg PO TID 10/08/17 [History] Norethindrone-E.estradiol-Iron [Junel Fe 1.5 mg-30 Mcg Tablet] 1 tab PO DAILY [History] 3 Allergy/AdvReac Type Severity Reaction Status Date / Time atomoxetine [From Strattera] Allergy See Verified 10/08/17 06:50 Comments lidocaine Allergy See Verified 10/08/17 06:50 Comments morphine Allergy See Verified 10/08/17 06:50 Comments promethazine Allergy See Verified 10/08/17 06:50 Comments trazodone Allergy Anaphylaxis Verified 10/08/17 06:50 clonazepam [From Klonopin] AdvReac Depression Verified 10/08/17 06:50 quetiapine [From Seroquel] AdvReac Itching Verified 10/08/17 06:50 nicotine patch AdvReac Rash Uncoded 10/08/17 06:50 Review of Systems Psychiatric: Reports: anxiety Psychiatry Exam - Constitutional Vitals: Temp Pulse Resp BP Pulse Ox 97.7 F 76 16 105/71 93 10/09/17 11:04 10/09/17 11:04 10/09/17 11:04 10/09/17 11:04 10/09/17 11:04 General appearance: age & developmentally appropriate - Musculoskeletal Strength & Tone: normal for patient - Psychiatric Patient Orientation: Yes Person, Yes Time, Yes Place Level of alertness: Alert Behavior: cooperative, nervous Psychomotor activity: Normal Eye Contact: Maintains Eye Contact Mood Description: Anxious Affect description: congruent with mood, inappropriate to situation Speech pattern: normal rate, normal rhythm, normal tone, fluent, spontaneous Language & Vocabulary: consistent with education Thought Process: Linear, Goal Oriented Thought Content: No Suicidal ideation, No Homicidal ideation, No Overt delusions Perceptual Disturbances: No Auditory hallucinations, No Visual hallucinations Attention Span Ability: Capable of Focused Attention Memory Description: Grossly Intact Patient Reliability: Reliable Historian Fund of knowledge: Yes abstraction ability, Yes aware of current events Intelligence Estimate: Average Judgment: Fair Insight: Partial Consult Discharge Plan - Plan Referrals: Vicenta Shah MD [Primary Care Provider] -
[2017-10-09] MEDS: Nicotine 21 MG PATCH.TD24 TD SCH (15:35)
[2017-10-09] MEDS: Gabapentin 400 MG CAPSULE PO SCH ×2 (16:26→21:03)
[2017-10-09] MEDS ORDERED: Divalproex (24 HR) 500 MG TABLET PO SCH (21:00)
[2017-10-10] MEDS: 0.9 % Sodium Chloride 1,000 ML IVC SCH (01:30)
[2017-10-10 06:45] LABS: Basophils # 0.1 K/mcL (0.0-0.2); Basophils % 0.7 %; Eosinophils # 0.6 K/mcL (0.0-0.6); Eosinophils % 3.8 %; Hematocrit 41.2 % (35.3-44.9); Hemoglobin 14.1 g/dL (11.5-15.4); Immature Granulocytes % 0.6 % (0-4); Lymphocytes # 5.3 K/mcL (0.6-4.6); Mean Corpuscular HGB Conc 34.2 g/dL (31.6-35.5); Mean Corpuscular Hemoglobin 29.5 pg (28.0-33.3); Mean Corpuscular Volume 86.2 fL (83.0-100.0); Mean Platelet Volume 10.1 fL (9.4-12.4); Monocytes # 0.9 K/mcL (0.0-1.3); Monocytes % 6.5 %; Neutrophils # 7.4 K/mcL (1.6-8.9); Nucleated Red Blood Cells 0.1 /100 WBC (0); Platelet Count 293 K/mcL (140-400); Red Blood Count 4.78 M/mcL (3.82-4.97); Red Cell Distribution Width 13.3 % (11.5-14.5); Segmented Neutrophils % 51.4 %
[2017-10-10 07:05] LABS: BUN/Creatinine Ratio 21 (6-26); Blood Urea Nitrogen 15 mg/dL (6-20); Calcium 9.1 mg/dL (8.6-10.3); Carbon Dioxide 24 mEq/L (23-29); Chloride 107 mEq/L (98-107); Glucose 92 mg/dL (70-105); Osmolality,Calculated 288 (280-300); Potassium 4.3 mEq/L (3.5-5.1); Sodium 139 mEq/L (136-145); eGFR For African Americans > 60 (> 60); eGFR For Non-African Americans > 60 (> 60)
[2017-10-10] MEDS: Gabapentin 400 MG CAPSULE PO SCH ×2 (07:49→14:06)
[2017-10-10] MEDS: Nicotine 21 MG PATCH.TD24 TD SCH (07:49)
[2017-10-10] MEDS ORDERED: NORETHINDRONE E ESTRADIOL IRON PO SCH (09:00)
--- NOTE | 2017-10-10 10:50 | Internal Med Progress Note ---
Date of Encounter: 10/10/17 Time of Encounter: 10:46 - Assessment and plan (1) ARF (acute renal failure) Current Visit: Yes Status: Acute Assessment and plan: Acute renal failure likely from dehydration secondary to nausea, vomiting and high-dose ibuprofen Acute renal failure with a creatinine of 1.8. Creatinine 0.73 this morning. Making adequate amount of urine. BMP in the morning Continue IV fluids Avoid nephrotoxic agents Qualifiers: Acute renal failure type: with other specified pathological lesion Qualified Code(s): N17.8 - Other acute kidney failure (2) Bipolar disorder Current Visit: Yes Status: Acute Assessment and plan: But is appropriate, affect is appropriate, denies any suicidal or homicidal ideation. Continue bipolar medication now and at discharge Qualifiers: Active/Remission status: currently active Current bipolar episode type: mixed Current episode severity: moderate Qualified Code(s): F31.62 - Bipolar disorder, current episode mixed, moderate (3) Chest pain Current Visit: Yes Status: Resolved Assessment and plan: Chest pain is resolved Troponin less than 0.03 Qualifiers: Chest pain type: chest pain on breathing Qualified Code(s): R07.1 - Chest pain on breathing; R07.81 - Pleurodynia (4) Suicidal ideation Current Visit: Yes Status: Acute Assessment and plan: Denying any current suicidal or homicidal ideation. Psychiatry is signed off reports that the patient is safe to discharge One-to-one irvin rene DC'madiha - Time Spent With Patient Total time spent is greater than 50% in coordination of care (as documented) at patient's floor/unit and/or counseling patient: 25 - 35 minutes - Subjective Interval history: Patient was admitted due to suicide attempt. Admitted to medical floor due to chest pain rule out and acute kidney injury. Denies any chest pain at this time. During workup troponin chest x-ray found to be negative. Kidney function is improved. Patient voiding appropriately. - Constitutional Vitals: Temp Pulse Resp BP Pulse Ox 97.8 F 72 17 105/70 93 10/10/17 07:19 10/10/17 07:19 10/10/17 07:19 10/10/17 07:19 10/10/17 07:19 General appearance: Present: A&O X 3, morbidly obese - Head Head exam: Present: atraumatic, normocephalic - Eye Eye exam: Present: PERRL, conjuntiva pink, sclera anicteric Pupils: Present: PERRL - Neck Neck exam general surgery: Present: supple, trachea midline. Absent: lymphadenopathy - Respiratory Respiratory exam: Present: CTAB. Absent: accessory muscle use, rales, rhonchi, wheezes - Cardiovascular Cardiovascular exam: Present: RRR, +S1, +S2. Absent: diastolic murmur, gallop, rubs, systolic murmur - GI/Abdominal GI/Abdominal exam: Present: normal bowel sounds, soft, no peritoneal signs. Absent: distended, tenderness - Extremities Exam Extremities exam: Present: warm, radial pulses palpable and symmetrical. Absent : calf tenderness, cyanotic, pedal edema - Neurological Exam Neurological exam: Present: CN II-XII intact, oriented X3, no focal deficits. Absent: pronater drift, facial droop, speech deficit - Skin Skin exam: Present: dry, intact Internal Medicine: Result - Labs CBC & Chem 7: 10/10/17 06:29 10/10/17 06:29 Labs: Short CBC 10/10/17 Range/Units 06:29 WBC 14.4 H (4.3-11.1) K/mcL Hgb 14.1 (11.5-15.4) g/dL Hct 41.2 (35.3-44.9) % Plt Count 293 (140-400) K/mcL Neutrophils # 7.4 (1.6-8.9) K/mcL BMP 10/10/17 06:29 Sodium 139 Potassium 4.3 Chloride 107 Carbon Dioxide 24 BUN 15 Creatinine 0.73 Glucose 92 Calcium 9.1 Consult Discharge Plan - Plan Referrals: Vicenta Shah MD [Primary Care Provider] -
[2017-10-10 16:22] VITALS: BP 140/85
--- NOTE | 2017-10-10 16:48 | Discharge Summary ---
- NOTES TO OUTPATIENT PROVIDER Notes to Outpatient Provider: Follow-up with primary care provider upon discharge Orders not resulted at time of discharge: Pending orders 10/11/17 04:00 BMP [Basic Metabolic Panel] AM 0400 Complete Blood Count [HEME] AM 0400 10/12/17 04:00 BMP [Basic Metabolic Panel] AM 0400 Complete Blood Count [HEME] AM 0400 Date of Encounter: 10/10/17 Time of Encounter: 16:46 - Discharge Diagnosis (1) Suicidal ideation Priority: Primary Status: Resolved Assessment and Plan: Resolved Denying any current suicidal or homicidal ideation. Psychiatry is signed off reports that the patient is safe to discharge One-to-one sitters been DC'd (2) ARF (acute renal failure) Priority: Primary Status: Resolved Assessment and Plan: Acute renal failure likely from dehydration secondary to nausea, vomiting and high-dose ibuprofen Acute renal failure with a creatinine of 1.8. Creatinine 0.73 this morning. Making adequate amount of urine. BMP in the morning Continue IV fluids Avoid nephrotoxic agents Qualifiers: Acute renal failure type: with other specified pathological lesion Qualified Code(s): N17.8 - Other acute kidney failure (3) Bipolar disorder Priority: Secondary Status: Acute Assessment and Plan: But is appropriate, affect is appropriate, denies any suicidal or homicidal ideation. Continue bipolar medication now and at discharge Qualifiers: Active/Remission status: currently active Current bipolar episode type: mixed Current episode severity: moderate Qualified Code(s): F31.62 - Bipolar disorder, current episode mixed, moderate (4) Chest pain Priority: Secondary Status: Resolved Assessment and Plan: Chest pain is resolved Troponin less than 0.03 Qualifiers: Chest pain type: chest pain on breathing Qualified Code(s): R07.1 - Chest pain on breathing; R07.81 - Pleurodynia Hospital course: Assessment and plan for hospital course Discharge discussed with: patient, nurse - Time Spent with Patient Total time spent providing and/or coordinating discharge services: - Discharge Medications Home Medications: Zolpidem [Ambien] 10 mg PO HS 04/09/15 [History] Divalproex (24 HR) [Depakote ER (24 HR)] 1,000 mg PO HS 06/08/17 [History] Lurasidone HCl [Latuda] 80 mg PO DAILY 06/08/17 [History] Norethindrone-E.estradiol-Iron [Junel Fe 1.5 mg-30 Mcg Tablet] 1 tab PO DAILY [History] Allergies/Adverse Reactions: 3 Allergy/AdvReac Type Severity Reaction Status Date / Time atomoxetine [From Strattera] Allergy See Verified 10/08/17 06:50 Comments lidocaine Allergy See Verified 10/08/17 06:50 Comments morphine Allergy See Verified 10/08/17 06:50 Comments promethazine Allergy See Verified 10/08/17 06:50 Comments trazodone Allergy Anaphylaxis Verified 10/08/17 06:50 clonazepam [From Klonopin] AdvReac Depression Verified 10/08/17 06:50 quetiapine [From Seroquel] AdvReac Itching Verified 10/08/17 06:50 nicotine patch AdvReac Rash Uncoded 10/08/17 06:50 Date of admission: 10/09/17 09:16 Primary care physician: Vicenta Shah MD Discharging clinician: Eulogio Vela Anticipated date of discharge: 10/10/17 - Constitutional Vitals: Temp Pulse Resp BP Pulse Ox 97.4 F L 63 17 140/85 96 10/10/17 16:21 10/10/17 16:21 10/10/17 16:21 10/10/17 16:21 10/10/17 16:21 General appearance: Present: A&O X 3, morbidly obese - Head Head exam: Present: atraumatic, normocephalic - Eye Eye exam: Present: PERRL, conjuntiva pink, sclera anicteric Pupils: Present: PERRL - Neck Neck exam general surgery: Present: supple, trachea midline. Absent: lymphadenopathy - Respiratory Respiratory exam: Present: CTAB. Absent: accessory muscle use, rales, rhonchi, wheezes - Cardiovascular Cardiovascular exam: Present: RRR, +S1, +S2. Absent: diastolic murmur, gallop, rubs, systolic murmur - GI/Abdominal GI/Abdominal exam: Present: normal bowel sounds, soft, no peritoneal signs. Absent: distended, tenderness - Extremities Exam Extremities exam: Present: warm, radial pulses palpable and symmetrical. Absent : calf tenderness, cyanotic, pedal edema - Neurological Exam Neurological exam: Present: CN II-XII intact, oriented X3, no focal deficits. Absent: pronater drift, facial droop, speech deficit - Skin Skin exam: Present: dry, intact - Patient Status Disposition: Home, Self-Care Condition: Good Functional capacity at discharge: independent ambulation Overall status at discharge: patient is back to baseline - Discharge Instructions Follow Up With: Vicenta Shah MD [Primary Care Provider] - - Diet and Activity Diet: advance to your usual diet
== END 2017-10-10 17:50 | disposition home or self-care (01) ==
LOC: 3BNU
PROVIDERS: ADMIT Hospitalist; ATTEND Hospitalist

== ENCOUNTER 2018-04-03 16:15 | Inpatient (IN) ==
--- NOTE | 2018-04-03 16:23 | Emergency Department Note ---
Disposition Clinical Impression: Suicidal ideation, Substance abuse Disposition: Admitted As Inpatient Condition: Fair Referrals: NONE,PCP [Primary Care Provider] - Forms: ED Satisfaction Letter Time of Disposition: 17:50 Psych HPI - General Chief Complaint: ED Psychiatric Symptoms Stated Complaint: SI/Meth use Time Seen by Provider: 04/03/18 16:19 Source: patient, EMS Mode of arrival: EMS Limitations: no limitations Nursing Notes Reviewed: Yes Vital Signs Reviewed: Yes - History of Present Illness HPI Narrative: 28-year-old female with a history of SI, anxiety, substance abuse presents for evaluation of SI. Patient does admit to using meth over the past couple weeks. Patient states she fell that she wanted to kill her self for the past 24 hours. Does have a plan that she wanted to take some of her anxiety pills. Patient also does have a history of cutting. Patient denies any delusions or hallucinations. No HI. Patient reports that she did smoke marijuana earlier today. Denies any fevers, cough, chest pain or shortness of breath. Denies possibility . No abdominal pain or nausea vomiting. Patient's reason for her suicidal ideation is that she feels that she is a horrible person. - Related Data Home Medications Medication Instructions Recorded Confirmed Zolpidem [Ambien] 10 mg PO HS 04/09/15 10/09/17 Divalproex (24 HR) [Depakote ER 1,000 mg PO HS 06/08/17 10/09/17 (24 HR)] Lurasidone HCl [Latuda] 80 mg PO DAILY 06/08/17 10/09/17 Norethindrone-E.estradiol-Iron 1 tab PO DAILY 10/08/17 10/09/17 [Junel Fe 1.5 mg-30 Mcg Tablet] Previous Rx's Medication Instructions Recorded Sulfamethoxazole/Trimeth DS 1 each PO BID #14 tablet 10/23/17 [Bactrim DS] Allergies Allergy/AdvReac Type Severity Reaction Status Date / Time atomoxetine [From Strattera] Allergy See Verified 01/14/18 19:38 Comments lidocaine Allergy See Verified 01/14/18 19:38 Comments morphine Allergy See Verified 01/14/18 19:38 Comments promethazine Allergy See Verified 01/14/18 19:38 Comments trazodone Allergy Anaphylaxis Verified 01/14/18 19:38 clonazepam [From Klonopin] AdvReac Depression Verified 01/14/18 19:38 quetiapine [From Seroquel] AdvReac Itching Verified 01/14/18 19:38 nicotine patch AdvReac Rash Uncoded 10/08/17 06:50 All systems ED: reviewed and negative except as stated. Constitutional: Denies: fever Cardiovascular: Denies: chest pain Respiratory: Denies: cough, dyspnea Gastrointestinal: Denies: abdominal pain, nausea, vomiting Past Medical History - Past Medical History Source: patient Medical history: Reports: hypertension Surgical history: Reports: other Psychiatric history: Reports: anxiety, bipolar, depression, prior suicide attempt, previous psychiatric hospitalization CV RN history: Reports: other - Social History Smoking Status: Former smoker Smokeless Tobacco Status: Yes Alcohol use: Reports: heavy, recent Drug use: Reports: marijuana Physical Exam - General Limitations: no limitations General appearance: alert, in no apparent distress - Head Head exam: atraumatic, normocephalic, normal inspection - Eye Eye exam: Present: normal appearance, PERRL, EOMI - ENT ENT exam: normal exam, normal oropharynx, mucous membranes moist - Neck Neck exam: Present: normal inspection, trachea midline - Chest Chest inspection: Present: normal inspection, symmetric chest wall rise - Respiratory Respiratory exam: Present: normal lung sounds bilaterally. Absent: respiratory distress - Cardiovascular Cardiovascular exam: Present: regular rate, normal rhythm. Absent: systolic murmur - Abdominal Exam Abdominal exam: Present: soft, Non-Tender - Extremities Exam Extremities exam: Present: normal inspection, other (No acute cutting arias on the volar aspect of her arms). Absent: pedal edema - Neurological Exam Neurological exam: Present: alert, oriented X3, CN II-XII intact - Psychiatric Psychiatric exam: Present: depressed, suicidal ideation - Skin Skin exam: Present: warm, dry, intact, normal color Course Course Narrative: Patient presents for concerns of suicidal ideation. Patient get medically screened and evaluated by psychiatry. Vital Signs Temperature 98.6 F 04/03/18 16:20 Pulse Rate 113 04/03/18 16:20 Respiratory Rate 18 04/03/18 16:20 Blood Pressure 129/84 04/03/18 16:20 O2 Sat by Pulse Oximetry 96 04/03/18 16:20 Temperature 98.6 F 04/03/18 16:20 Pulse Rate 113 04/03/18 16:20 Respiratory Rate 18 04/03/18 16:20 Blood Pressure 129/84 04/03/18 16:20 O2 Sat by Pulse Oximetry 96 04/03/18 16:20 Oxygen Delivery Oxygen Delivery Room Air Psych - MDM Narrative Medical decision making narrative: Patient will be pink slipped and admit to Psych. - Lab Data Result diagrams: 04/03/18 16:47 04/03/18 16:47 Lab Results 04/03/18 04/03/18 04/03/18 Range/Units 16:25 16:25 16:30 WBC (4.3-11.1) K/mcL RBC (3.82-4.97) M/mcL Hgb (11.5-15.4) g/dL Hct (35.3-44.9) % MCV (83.0-100.0) fL MCH (28.0-33.3) pg MCHC (31.6-35.5) g/dL RDW (11.5-14.5) % Plt Count (140-400) K/mcL MPV (9.4-12.4) fL Immature Gran % (0-4) % Seg Neutrophils % % Lymphocytes % % Monocytes % % Eosinophils % % Basophils % % Neutrophils # (1.6-8.9) K/mcL Lymphocytes # (0.6-4.6) K/mcL Monocytes # (0.0-1.3) K/mcL Eosinophils # (0.0-0.6) K/mcL Basophils # (0.0-0.2) K/mcL Sodium (136-145) mEq/L Potassium (3.5-5.1) mEq/L Chloride (98-107) mEq/L Carbon Dioxide (23-29) mEq/L BUN (6-20) mg/dL Creatinine (0.60-1.20) mg/dL Est GFR ( Amer) (> 60) Est GFR (Non-Af Amer) (> 60) BUN/Creatinine Ratio (6-26) Glucose (70-105) mg/dL Calculated Osmolality (280-300) Calcium (8.6-10.3) mg/dL Urine Color Dark Yellow (Yellow) Urine Clarity Cloudy A (Clear) Urine pH 6.5 (5.0-8.0) pH Units Ur Specific Candor 1.024 (1.010-1.025) Urine Protein 30 H (Neg-Trace) mg/dL Urine Glucose (UA) Normal (Normal) mg/dL Urine Ketones 15 H (Negative) mg/dL Urine Blood Large H (Negative) Urine Nitrite Negative (Negative) Urine Bilirubin Small H (Negative) Urine Urobilinogen Normal (Normal) mg/dL Ur Leukocyte Esterase Trace H (Negative) Urine Microscopic RBC 3-5 H (0-3) per hpf Urine Microscopic WBC 5-15 H (0-3) per hpf Ur Squamous Epith Cells Many H (None-Few) per lpf Urine Bacteria Many H (None-Few) per hpf Urine Test Negative (Negative) Salicylates (15.0-30.0) mg/dL Urine Opiates Screen Negative (Sdealm=242) ng/mL Acetaminophen (10-20) mcg/mL Ur Barbiturates Screen Negative (Xytqur=052) ng/mL Ur Phencyclidine Scrn Negative (Cutoff=25) ng/mL Ur Amphetamines Screen Positive H (Swddrh=3094) ng/mL U Benzodiazepines Scrn Negative (Oqptwq=439) ng/mL Urine Cocaine Screen Negative (Cutoff= 300) ng/mL U Marijuana (THC) Screen Positive H (Cutoff = 50) ng/mL Ur Drug Screen Interp See Below Ethyl Alcohol (Less than 10) mg/dL 04/03/18 04/03/18 Range/Units 16:47 16:47 WBC 13.1 H (4.3-11.1) K/mcL RBC 5.25 H (3.82-4.97) M/mcL Hgb 15.0 (11.5-15.4) g/dL Hct 45.3 H (35.3-44.9) % MCV 86.3 (83.0-100.0) fL MCH 28.6 (28.0-33.3) pg MCHC 33.1 (31.6-35.5) g/dL RDW 13.7 (11.5-14.5) % Plt Count 325 (140-400) K/mcL MPV 10.2 (9.4-12.4) fL Immature Gran % 0.2 (0-4) % Seg Neutrophils % 76.7 % Lymphocytes % 15.3 % Monocytes % 6.0 % Eosinophils % 1.2 % Basophils % 0.6 % Neutrophils # 10.0 H (1.6-8.9) K/mcL Lymphocytes # 2.0 (0.6-4.6) K/mcL Monocytes # 0.8 (0.0-1.3) K/mcL Eosinophils # 0.2 (0.0-0.6) K/mcL Basophils # 0.1 (0.0-0.2) K/mcL Sodium 137 (136-145) mEq/L Potassium 4.0 (3.5-5.1) mEq/L Chloride 105 (98-107) mEq/L Carbon Dioxide 24 (23-29) mEq/L BUN 9 (6-20) mg/dL Creatinine 0.82 (0.60-1.20) mg/dL Est GFR ( Amer) > 60 (> 60) Est GFR (Non-Af Amer) > 60 (> 60) BUN/Creatinine Ratio 11 (6-26) Glucose 154 H (70-105) mg/dL Calculated Osmolality 286 (280-300) Calcium 9.9 (8.6-10.3) mg/dL Urine Color (Yellow) Urine Clarity (Clear) Urine pH (5.0-8.0) pH Units Ur Specific Candor (1.010-1.025) Urine Protein (Neg-Trace) mg/dL Urine Glucose (UA) (Normal) mg/dL Urine Ketones (Negative) mg/dL Urine Blood (Negative) Urine Nitrite (Negative) Urine Bilirubin (Negative) Urine Urobilinogen (Normal) mg/dL Ur Leukocyte Esterase (Negative) Urine Microscopic RBC (0-3) per hpf Urine Microscopic WBC (0-3) per hpf Ur Squamous Epith Cells (None-Few) per lpf Urine Bacteria (None-Few) per hpf Urine Test (Negative) Salicylates < 2.5 L (15.0-30.0) mg/dL Urine Opiates Screen (Wuaijd=811) ng/mL Acetaminophen < 10 L (10-20) mcg/mL Ur Barbiturates Screen (Nudtwt=371) ng/mL Ur Phencyclidine Scrn (Cutoff=25) ng/mL Ur Amphetamines Screen (Pynwam=5922) ng/mL U Benzodiazepines Scrn (Hhnpco=866) ng/mL Urine Cocaine Screen (Cutoff= 300) ng/mL U Marijuana (THC) Screen (Cutoff = 50) ng/mL Ur Drug Screen Interp Ethyl Alcohol < 10 (Less than 10) mg/dL Psychiatric Medical Clearance - Medical Clearance Checklist Does the patient have a NEW psychiatric condition?: No Any abnormalities indicating possible medical illness?: No Any history of medical issues?: No Medical History: No Social History Section defined Any abnormal vital signs prior to transfer?: No Current Vitals: Last Vital Signs Temp 98.6 F 04/03/18 16:20 Pulse 113 04/03/18 16:20 Resp 18 04/03/18 16:20 BP 129/84 04/03/18 16:20 Pulse Ox 96 04/03/18 16:20 Is the patient intoxicated or cognitively impaired?: No Psychiatric Lab Panel: Drug Levels and Toxicity 04/03/18 04/03/18 16:25 16:47 Urine Opiates Screen Negative Acetaminophen < 10 L Ur Barbiturates Screen Negative Ur Phencyclidine Scrn Negative Ur Amphetamines Screen Positive H U Benzodiazepines Scrn Negative Urine Cocaine Screen Negative U Marijuana (THC) Screen Positive H Ethyl Alcohol < 10 Any abnormalities on the physical exam?: No Any abnormal labs?: No Abnormal Labs: Abnormal lab results WBC 13.1 K/mcL (4.3-11.1) H 04/03/18 16:47 RBC 5.25 M/mcL (3.82-4.97) H 04/03/18 16:47 Hct 45.3 % (35.3-44.9) H 04/03/18 16:47 Neutrophils # 10.0 K/mcL (1.6-8.9) H 04/03/18 16:47 Glucose 154 mg/dL (70-105) H 04/03/18 16:47 Urine Clarity Cloudy (Clear) A 04/03/18 16:30 Urine Protein 30 mg/dL (Neg-Trace) H 04/03/18 16:30 Urine Ketones 15 mg/dL (Negative) H 04/03/18 16:30 Urine Blood Large (Negative) H 04/03/18 16:30 Urine Bilirubin Small (Negative) H 04/03/18 16:30 Ur Leukocyte Esterase Trace (Negative) H 04/03/18 16:30 Urine Microscopic RBC 3-5 per hpf (0-3) H 04/03/18 16:30 Urine Microscopic WBC 5-15 per hpf (0-3) H 04/03/18 16:30 Ur Squamous Epith Cells Many per lpf (None-Few) H 04/03/18 16:30 Urine Bacteria Many per hpf (None-Few) H 04/03/18 16:30 Salicylates < 2.5 mg/dL (15.0-30.0) L 04/03/18 16:47 Acetaminophen < 10 mcg/mL (10-20) L 04/03/18 16:47 Ur Amphetamines Screen Positive ng/mL (Hjzdeg=4633) H 04/03/18 16:25 U Marijuana (THC) Screen Positive ng/mL (Cutoff = 50) H 04/03/18 16:25 Does the patient require durable medical equiptment?: No Is the patient ambulatory?: No Is the patient a fall risk?: No Has the patient been medically cleared?: Yes Any acute medical condition require Tx prior to transfer?: No Statement of Medical Clearance: I have evaluated the patient, reviewed diagnostic information, and certify that the patient's medical condition is sufficiently stable that transfer to the psychiatric unit does not pose a significant risk of deterioration. Chirag - Chirag Situation: Demographics Background: Presenting Complaint Assessment: Vital Signs, Course and respsone to treatment, Patient/Family Expectation Recommendation: Barrier(s) to disposition, Recommendation based on pending studies, treatments, or consults Chirag Report Given to: 1A Chirag Repor Time: 17:51
[2018-04-03 16:49] LABS: Bilirubin,Urine Small (Negative); Blood,Urine Large (Negative); Clarity,Urine Cloudy (Clear); Color,Urine Dark Yellow (Yellow); Glucose,Urine (UA) Normal (Normal); Ketones,Urine 15 mg/dL (Negative); Leukocyte Esterase,Urine Trace (Negative); Nitrite,Urine Negative (Negative); PH,Urine 6.5 pH Units (5.0-8.0); Protein,Urine 30 mg/dL (Neg-Trace); Specific Gravity,Urine 1.024 (1.010-1.025); Urobilinogen,Urine Normal (Normal)
[2018-04-03 16:51] LABS: Bacteria,Urine Many per hpf (None-Few); Squamous Epithelial Cell,Urine Many per lpf (None-Few)
[2018-04-03 16:56] LABS: Basophils # 0.1 K/mcL (0.0-0.2); Basophils % 0.6 %; Eosinophils # 0.2 K/mcL (0.0-0.6); Eosinophils % 1.2 %; Hematocrit 45.3 % (35.3-44.9); Immature Granulocytes % 0.2 % (0-4); Lymphocytes % 15.3 %; Mean Corpuscular HGB Conc 33.1 g/dL (31.6-35.5); Mean Corpuscular Hemoglobin 28.6 pg (28.0-33.3); Mean Corpuscular Volume 86.3 fL (83.0-100.0); Mean Platelet Volume 10.2 fL (9.4-12.4); Monocytes # 0.8 K/mcL (0.0-1.3); Platelet Count 325 K/mcL (140-400); Red Blood Count 5.25 M/mcL (3.82-4.97); Red Cell Distribution Width 13.7 % (11.5-14.5); Segmented Neutrophils % 76.7 %
--- NOTE | 2018-04-03 16:58 | Emergency Department Note ---
Disposition Clinical Impression: Suicidal ideation, Substance abuse Disposition: Still a Patient Forms: ED Satisfaction Letter General Adult HPI - General Chief complaint: ED Psychiatric Symptoms Stated complaint: SI/Meth use Time Seen by Provider: 04/03/18 16:19 Source: patient, EMS Mode of arrival: EMS Limitations: no limitations - History of Present Illness Pain Scale: 0 - Related Data Home Medications Medication Instructions Recorded Confirmed Zolpidem [Ambien] 10 mg PO HS 04/09/15 10/09/17 Divalproex (24 HR) [Depakote ER 1,000 mg PO HS 06/08/17 10/09/17 (24 HR)] Lurasidone HCl [Latuda] 80 mg PO DAILY 06/08/17 10/09/17 Norethindrone-E.estradiol-Iron 1 tab PO DAILY 10/08/17 10/09/17 [Junel Fe 1.5 mg-30 Mcg Tablet] Previous Rx's Medication Instructions Recorded Sulfamethoxazole/Trimeth DS 1 each PO BID #14 tablet 10/23/17 [Bactrim DS] Allergies Allergy/AdvReac Type Severity Reaction Status Date / Time atomoxetine [From Strattera] Allergy See Verified 01/14/18 19:38 Comments lidocaine Allergy See Verified 01/14/18 19:38 Comments morphine Allergy See Verified 01/14/18 19:38 Comments promethazine Allergy See Verified 01/14/18 19:38 Comments trazodone Allergy Anaphylaxis Verified 01/14/18 19:38 clonazepam [From Klonopin] AdvReac Depression Verified 01/14/18 19:38 quetiapine [From Seroquel] AdvReac Itching Verified 01/14/18 19:38 nicotine patch AdvReac Rash Uncoded 10/08/17 06:50 Constitutional: Denies: fever Cardiovascular: Denies: chest pain Respiratory: Denies: cough, dyspnea Gastrointestinal: Denies: abdominal pain, nausea, vomiting Past Medical History - Past Medical History Medical history: Reports: hypertension Surgical history: Reports: other Psychiatric history: Reports: anxiety, bipolar, depression, prior suicide attempt, previous 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 hospitalization 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 - Social History Smoking Status: Former smoker Smokeless Tobacco Status: Yes Alcohol use: Reports: heavy, recent Drug use: Reports: marijuana Physical Exam - General Limitations: no limitations General appearance: alert, in no apparent distress Course Vital Signs Temperature 98.6 F 04/03/18 16:20 Pulse Rate 113 04/03/18 16:20 Respiratory Rate 18 04/03/18 16:20 Blood Pressure 129/84 04/03/18 16:20 O2 Sat by Pulse Oximetry 96 04/03/18 16:20 Temperature 98.6 F 04/03/18 16:20 Pulse Rate 113 04/03/18 16:20 Respiratory Rate 18 04/03/18 16:20 Blood Pressure 129/84 04/03/18 16:20 O2 Sat by Pulse Oximetry 96 04/03/18 16:20 Oxygen Delivery Oxygen Delivery Room Air Medical Decision Making - Lab Data Lab Results 04/03/18 Range/Units 16:25 Ur Drug Screen Interp See Below Attestation Statement - Attestation Attestation: I examined this patient and my medical decision-making was reviewed with the Resident Physician. I agree with the documented findings, disposition and treatment plan as described except to the extent set forth below. 28 year old female presents to the ED with complaints of SI and recently had meth use and has plans to overdose today. Patient states that she has a history of cutting and does not have any new injuries at this time. WE will do a medial clearance and then consult 1A
[2018-04-03 17:06] LABS: Amphetamine Screen,Urine Positive ng/mL (Cutoff=1000); Barbiturate Screen,Urine Negative ng/mL (Cutoff=200); Benzodiazepines Screen,Urine Negative ng/mL (Cutoff=200); Cannabinoid Screen,Urine Positive ng/mL (Cutoff = 50); Cocaine Screen,Urine Negative ng/mL (Cutoff= 300); Opiate Screen,Urine Negative ng/mL (Cutoff=300); Phencyclidine Screen,Urine Negative ng/mL (Cutoff=25)
[2018-04-03 17:16] LABS: Acetaminophen < 10 mcg/mL (10-20); BUN/Creatinine Ratio 11 (6-26); Blood Urea Nitrogen 9 mg/dL (6-20); Calcium 9.9 mg/dL (8.6-10.3); Carbon Dioxide 24 mEq/L (23-29); Chloride 105 mEq/L (98-107); Ethanol < 10 mg/dL (Less than 10); Glucose 154 mg/dL (70-105); Osmolality,Calculated 286 (280-300); Salicylate < 2.5 mg/dL (15.0-30.0); Sodium 137 mEq/L (136-145); eGFR For Non-African Americans > 60 (> 60)
[2018-04-03] MEDS ORDERED: MOM Conc 10 ML UD.LIQ PO PRN (19:46)
[2018-04-03] MEDS ORDERED: Mag Hydrox/Al Hydrox/Simeth 30 ML UDC PO PRN (19:46)
[2018-04-03] MEDS ORDERED: Ibuprofen 400 MG TABLET PO PRN (19:46)
[2018-04-03] MEDS ORDERED: Divalproex (24 HR) 500 MG TABLET PO SCH (21:00)
[2018-04-03] MEDS: Gabapentin 400 MG CAPSULE PO SCH (21:38)
[2018-04-03] MEDS: hydrOXYzine pamoate 25 MG CAPSULE PO PRN (23:18)
[2018-04-04 08:24] LABS: Valproate 41 mcg/mL (50-100)
[2018-04-04] MEDS: Gabapentin 400 MG CAPSULE PO SCH ×3 (09:57→21:37)
[2018-04-04] MEDS: Nicotine 14 MG PATCH.TD24 TD SCH (12:31)
--- NOTE | 2018-04-04 17:00 | Psychiatry History & Physical ---
Date of Encounter: 04/04/18 Time of Encounter: 17:00 History of Present Illness Patient Stated Chief Complaint: si Medicare Admission Attestation: For traditional Medicare patients the provided hospital inpatient services are reasonable and necessary and in the case of services not specified as inpatient-only under 42 CFR 419.22 (n), that they are appropriately provided as inpatient services in accordance 42 CFR 412.3. For Critical Access Hospital the patient may reasonably be expected to be discharged or transferred to a hospital within 96 hours after admission to the Critical Access Hospital. Admitted From: Emergency Dept Plans for Post Hospital Care: Home History of Present Illness: Ms. Melendez is a 28 year old female The patient's a 28-year-old white female spreading consented to the emergency room with suicidal ideation. The reader is referred to the previous reports. Chief complaint I would like a 90 day program rehabilitation with sobriety. History of present illness the patient has borderline personality disorder and a mood disorder and has previously required hospitalization for suicidal ideation. In this case she has presented from [facility] requesting stabilization so that she can consider a program in the next week she wants to go to a residential program for 90 days. The patient had 6 months of sobriety but in July 2017 and relapsed. The patient had a period of sobriety off and on from January 18 through March 23 then on March 23 she either became upset or frustrated after infidelity in a relationship. And the patient went on a 2 week dow. This included math Percocet and the drugs he was also positive for marijuana. The patient has requested help for substance abuse. The patient is on gabapentin 800 mg 3 times a day in the past she was on Ambien. She is on gabapentin 15 minute 100 mg daily at bedtime the blood level was 41 when drawn this was not a trough level. And BuSpar 10 mg twice a day Past Med Surg Social Fam HX - Past Medical History Medical history: hypertension - Past Psychiatric History Psychiatric history: Reports: anxiety, previous psychiatric hospitalization, other - Past Surgical History Surgical History: other - Social History Smoking Status: Former smoker Smokeless Tobacco Status: Yes Alcohol use: heavy, recent Drug use: marijuana, methamphetamine Occupational status: previously employed Current living situation: Home - Independent Activity Level: Independent ambulation Recent Out of Country Travel Within the Last 8 Weeks: No Exposure or Possible Exposure to Illness During Travel: No - Family History Mother Family Member Ethnicity: Non- Living Status: Still Living Hx Family Cardiac Disorders: No Hx Family Respiratory Disorders: No Hx Family Cancer: No Hx Family GI Disorders: Yes (Crohn's disease) Hx Family Endocrine Disorder: No Hx Family Neuromuscular Disorders: No Hx Family Neurologic Disorders: No Hx Family HEENT Disorders: No Hx Family Autoimmune Disorders: No Father Adopted: No Family Member Ethnicity: Non- Living Status: Still Living Hx Family Cardiac Disorders: Yes (HTN) Hx Family Respiratory Disorders: Yes (needs CPAP) Hx Family Cancer: No Hx Family GI Disorders: No Hx Family Endocrine Disorder: Yes (DM) Hx Family Neuromuscular Disorders: No Hx Family Neurologic Disorders: No Hx Family HEENT Disorders: No Hx Family Autoimmune Disorders: No Sister Adopted: Velva: severiano Age: 26 Family Member Ethnicity: Non- Living Status: Still Living Hx Family Cardiac Disorders: No Hx Family Respiratory Disorders: No Hx Family Cancer: No Hx Family GI Disorders: No Hx Family Genitourinary Disorders: No Hx Family Endocrine Disorder: No Hx Family Musculoskeletal Disorders: No Hx Family Neuromuscular Disorders: No Hx Family Neurologic Disorders: No Hx Family HEENT Disorders: No Hx Family Autoimmune Disorders: No Hx Family Reproductive Disorders: No Hx Family Psychosocial Disorders: No Hx Family Medical Disorders: No Medications & Allergies Divalproex (24 HR) [Depakote ER (24 HR)] 1,500 mg PO HS 06/08/17 [History] Buspirone HCl [Buspar] 7.5 mg PO BID 04/03/18 [History] Gabapentin [Neurontin] 800 mg PO TID 04/03/18 [History] Allergy/AdvReac Type Severity Reaction Status Date / Time atomoxetine [From Strattera] Allergy See Verified 01/14/18 19:38 Comments lidocaine Allergy See Verified 01/14/18 19:38 Comments morphine Allergy See Verified 01/14/18 19:38 Comments promethazine Allergy See Verified 01/14/18 19:38 Comments trazodone Allergy Anaphylaxis Verified 01/14/18 19:38 clonazepam [From Klonopin] AdvReac Depression Verified 01/14/18 19:38 quetiapine [From Seroquel] AdvReac Itching Verified 01/14/18 19:38 nicotine patch AdvReac Rash Uncoded 10/08/17 06:50 Review of Systems Psychiatric: Reports: depression, anxiety, suicidal ideation, irritability, mood swings Exam - HEENT Head exam IM: Present: atraumatic Eye exam IM: Present: EOMI, normal appearance, PERRL ENT exam IM: Present: normal exam - Neurological Neurological exam: Present: CN II-XII intact - Respiratory Respiratory exam IM: Present: CTAB - GI/Abdominal GI/Abdominal exam IM: Present: normal bowel sounds, soft. Absent: tenderness - Extremities Extremities exam IM: Present: full ROM - Skin Skin exam IM: Present: dry, warm - Constitutional Vitals: Temp Pulse Resp BP Pulse Ox 98.0 F 101 18 115/80 100 04/04/18 09:00 04/04/18 09:00 04/04/18 09:00 04/04/18 09:00 04/03/18 21:00 General appearance: age & developmentally appropriate, well-groomed, well- nourished - Musculoskeletal Gait: normal Station: relaxed Strength & Tone: normal for patient - Psychiatric Patient Orientation: Yes Person, Yes Time, Yes Place Level of alertness: Alert Behavior: calm, cooperative Psychomotor activity: Normal Eye Contact: Maintains Eye Contact Mood Description: Irritable Affect description: dysphoric Speech Volume: Normal Speech pattern: normal rate, normal rhythm, normal tone, fluent, spontaneous Language & Vocabulary: consistent with education Thought Process: Linear, Goal Oriented Thought Content: Yes Suicidal ideation, No Homicidal ideation, No Overt delusions Perceptual Disturbances: No Auditory hallucinations, No Visual hallucinations Attention Span Ability: Capable of Focused Attention Memory Description: Grossly Intact Patient Reliability: Questionable Historian Intelligence Estimate: Average Judgment: Fair Insight: Partial Results - Drug Levels and Toxicology Drug Levels and Toxicology: Drug Levels and Toxicity 04/03/18 04/03/18 16:25 16:47 Urine Opiates Screen Negative Acetaminophen < 10 L Ur Barbiturates Screen Negative Ur Phencyclidine Scrn Negative Ur Amphetamines Screen Positive H U Benzodiazepines Scrn Negative Urine Cocaine Screen Negative U Marijuana (THC) Screen Positive H Ethyl Alcohol < 10 - Labs Labs: Laboratory Last Values WBC 13.1 K/mcL (4.3-11.1) H 04/03/18 16:47 RBC 5.25 M/mcL (3.82-4.97) H 04/03/18 16:47 Hgb 15.0 g/dL (11.5-15.4) 04/03/18 16:47 Hct 45.3 % (35.3-44.9) H 04/03/18 16:47 MCV 86.3 fL (83.0-100.0) 04/03/18 16:47 MCH 28.6 pg (28.0-33.3) 04/03/18 16:47 MCHC 33.1 g/dL (31.6-35.5) 04/03/18 16:47 RDW 13.7 % (11.5-14.5) 04/03/18 16:47 Plt Count 325 K/mcL (140-400) 04/03/18 16:47 MPV 10.2 fL (9.4-12.4) 04/03/18 16:47 Immature Gran % 0.2 % (0-4) 04/03/18 16:47 Seg Neutrophils % 76.7 % 04/03/18 16:47 Lymphocytes % 15.3 % 04/03/18 16:47 Monocytes % 6.0 % 04/03/18 16:47 Eosinophils % 1.2 % 04/03/18 16:47 Basophils % 0.6 % 04/03/18 16:47 Neutrophils # 10.0 K/mcL (1.6-8.9) H 04/03/18 16:47 Lymphocytes # 2.0 K/mcL (0.6-4.6) 04/03/18 16:47 Monocytes # 0.8 K/mcL (0.0-1.3) 04/03/18 16:47 Eosinophils # 0.2 K/mcL (0.0-0.6) 04/03/18 16:47 Basophils # 0.1 K/mcL (0.0-0.2) 04/03/18 16:47 Sodium 137 mEq/L (136-145) 04/03/18 16:47 Potassium 4.0 mEq/L (3.5-5.1) 04/03/18 16:47 Chloride 105 mEq/L (98-107) 04/03/18 16:47 Carbon Dioxide 24 mEq/L (23-29) 04/03/18 16:47 BUN 9 mg/dL (6-20) 04/03/18 16:47 Creatinine 0.82 mg/dL (0.60-1.20) 04/03/18 16:47 Est GFR ( Amer) > 60 (> 60) 04/03/18 16:47 Est GFR (Non-Af Amer) > 60 (> 60) 04/03/18 16:47 BUN/Creatinine Ratio 11 (6-26) 04/03/18 16:47 Glucose 154 mg/dL (70-105) H 04/03/18 16:47 Calculated Osmolality 286 (280-300) 04/03/18 16:47 Calcium 9.9 mg/dL (8.6-10.3) 04/03/18 16:47 Urine Color Dark Yellow (Yellow) 04/03/18 16:30 Urine Clarity Cloudy (Clear) A 04/03/18 16:30 Urine pH 6.5 pH Units (5.0-8.0) 04/03/18 16:30 Ur Specific [place] 1.024 (1.010-1.025) 04/03/18 16:30 Urine Protein 30 mg/dL (Neg-Trace) H 04/03/18 16:30 Urine Glucose (UA) Normal mg/dL (Normal) 04/03/18 16:30 Urine Ketones 15 mg/dL (Negative) H 04/03/18 16:30 Urine Blood Large (Negative) H 04/03/18 16:30 Urine Nitrite Negative (Negative) 04/03/18 16:30 Urine Bilirubin Small (Negative) H 04/03/18 16:30 Urine Urobilinogen Normal mg/dL (Normal) 04/03/18 16:30 Ur Leukocyte Esterase Trace (Negative) H 04/03/18 16:30 Urine Microscopic RBC 3-5 per hpf (0-3) H 04/03/18 16:30 Urine Microscopic WBC 5-15 per hpf (0-3) H 04/03/18 16:30 Ur Squamous Epith Cells Many per lpf (None-Few) H 04/03/18 16:30 Urine Bacteria Many per hpf (None-Few) H 04/03/18 16:30 Urine Test Negative (Negative) 04/03/18 16:25 Salicylates < 2.5 mg/dL (15.0-30.0) L 04/03/18 16:47 Urine Opiates Screen Negative ng/mL (Bciuws=040) 04/03/18 16:25 Acetaminophen < 10 mcg/mL (10-20) L 04/03/18 16:47 Ur Barbiturates Screen Negative ng/mL (Npyuvu=290) 04/03/18 16:25 Valproic Acid 41 mcg/mL (50-100) L 04/03/18 16:47 Ur Phencyclidine Scrn Negative ng/mL (Cutoff=25) 04/03/18 16:25 Ur Amphetamines Screen Positive ng/mL (Dsmqmk=7140) H 04/03/18 16:25 U Benzodiazepines Scrn Negative ng/mL (Olpkge=517) 04/03/18 16:25 Urine Cocaine Screen Negative ng/mL (Cutoff= 300) 04/03/18 16:25 U Marijuana (THC) Screen Positive ng/mL (Cutoff = 50) H 04/03/18 16:25 Ur Drug Screen Interp See Below 04/03/18 16:25 Ethyl Alcohol < 10 mg/dL (Less than 10) 04/03/18 16:47 Assessment and Plan (1) Mood disorder Current visit: No Status: Acute Plan: Admit inpatient for safety and stabilization, Close observation, Group Therapy Risks, benefits, side effects, alternatives discussed w/pt: Yes Patient agreeable to treatment: Yes Estimated Length of Stay (Days): 3 (2) Borderline personality disorder Current visit: No Status: Chronic Plan: Admit inpatient for safety and stabilization, Close observation Risks, benefits, side effects, alternatives discussed w/pt: Yes Patient agreeable to treatment: Yes Plans for Post Hospital Care: Home (3) Suicidal ideation Current visit: No Status: Acute Plan: Admit inpatient for safety and stabilization, Close observation, Encourage participation in unit milieu Risks, benefits, side effects, alternatives discussed w/pt: Yes Patient agreeable to treatment: Yes (4) Substance abuse Current visit: Yes Status: Acute Plan: Admit inpatient for safety and stabilization, Close observation Risks, benefits, side effects, alternatives discussed w/pt: Yes Patient agreeable to treatment: Yes Plans for Post Hospital Care: Home
[2018-04-04] MEDS: hydrOXYzine pamoate 25 MG CAPSULE PO PRN (21:37)
[2018-04-04] MEDS: Divalproex (24 HR) 500 MG TABLET PO SCH (21:37)
[2018-04-05] MEDS: Gabapentin 400 MG CAPSULE PO SCH ×3 (09:44→21:41)
[2018-04-05] MEDS: Nicotine 14 MG PATCH.TD24 TD SCH (09:44)
--- NOTE | 2018-04-05 11:59 | Psychiatry Progress Note ---
Date of Encounter: 04/05/18 Time of Encounter: 11:45 Subjective Interval history: D the patient is a 28-year-old white female. Chief complaint I am worried about my 2 pets. History of present illness. The patient was admitted for worsening of a mood disorder. The patient also has borderline personality disorder. Patient had suicidal ideation. She also had a recent relapse that included methamphetamine and opiate pain. The patient recognizes her need for treatment. Depakote was increased in order to help with mood stability. The patient has talked about options including a 90 day program with dual diagnosis focus. The patient recognizes her diagnoses and need for treatment. Today the patient is denying suicidal ideation and saying that she needs to go home to take care of the pats a dog is in a cage and a cat roams the house but may need further care. The patient has offered to allow us to talk to on her aunt Katelynn or her sister or her girlfriend who resides in another state. The patient says that her girlfriend is now talking to her in spite of difficulties in the relationship. Review of Systems Psychiatric: Reports: depression, anxiety, suicidal ideation, irritability, mood swings Results - Vital Signs Vital Signs: Temp Pulse Resp BP Pulse Ox 98.6 F 73 20 147/85 97 04/05/18 09:00 04/05/18 09:00 04/05/18 09:00 04/05/18 09:00 04/05/18 09:00 Assessment and Plan (1) Mood disorder Current visit: No Status: Acute Plan: Continue hospitalization, Close observation, Suicide Precautions per unit protocol, Encourage participation in unit milieu, Group Therapy Risks, benefits, side effects, alternatives discussed w/pt: Yes Patient agreeable to treatment: Yes (2) Borderline personality disorder Current visit: No Status: Chronic Plan: Continue hospitalization, Close observation, Suicide Precautions per unit protocol, Secure weapons Risks, benefits, side effects, alternatives discussed w/pt: Yes Patient agreeable to treatment: Yes (3) Suicidal ideation Current visit: No Status: Acute Plan: Continue hospitalization, Suicide Precautions per unit protocol, Encourage participation in unit milieu, Secure weapons Risks, benefits, side effects, alternatives discussed w/pt: Yes Patient agreeable to treatment: Yes (4) Substance abuse Current visit: Yes Status: Acute Risks, benefits, side effects, alternatives discussed w/pt: Yes Patient agreeable to treatment: Yes Consult Discharge Plan - Plan Referrals: [facility] [Outside] - 04/09/18 2:00 pm (You will resume weekday groups on discharge. The above appointment is with Michelle Suarez for outpatient substance abuse counseling services. You will also see Shobha Crockett on 05/16/2018 at 10:00 AM for outpatient psychiatric assessment and medication management services.) Psychiatry Exam - Constitutional Vitals: Temp Pulse Resp BP Pulse Ox 98.6 F 73 20 147/85 97 04/05/18 09:00 04/05/18 09:00 04/05/18 09:00 04/05/18 09:00 04/05/18 09:00 General appearance: age & developmentally appropriate, well-groomed, well- nourished - Musculoskeletal Gait: normal Station: relaxed Strength & Tone: normal for patient - Psychiatric Patient Orientation: Yes Person, Yes Time, Yes Place Level of alertness: Alert Behavior: calm, cooperative Psychomotor activity: Increased Eye Contact: Maintains Eye Contact Mood Description: Labile Affect description: congruent with mood, full range Speech Volume: Normal Speech pattern: normal rate, normal rhythm, normal tone, fluent, spontaneous Language & Vocabulary: consistent with education Thought Process: Linear, Goal Oriented Thought Content: Yes Suicidal ideation, No Homicidal ideation, No Overt delusions Perceptual Disturbances: No Auditory hallucinations, No Visual hallucinations Attention Span Ability: Capable of Focused Attention Memory Description: Grossly Intact Patient Reliability: Reliable Historian Fund of knowledge: Yes abstraction ability, Yes aware of current events Intelligence Estimate: Average Judgment: Fair Insight: Partial
[2018-04-05] MEDS: hydrOXYzine pamoate 25 MG CAPSULE PO PRN (12:19)
[2018-04-05] MEDS ORDERED: Ziprasidone 80 MG CAPSULE PO STA (16:02)
[2018-04-05] MEDS ORDERED: *HR* LORazepam 1 MG TABLET PO STA (16:03)
[2018-04-05] MEDS ORDERED: Ziprasidone 20 MG CAPSULE PO STA (16:11)
[2018-04-05] MEDS: Divalproex (24 HR) 500 MG TABLET PO SCH (21:41)
--- NOTE | 2018-04-06 10:57 | Discharge Summary ---
Date of Encounter: 04/06/18 Time of Encounter: 10:54 Diagnosis - Discharge Diagnosis (1) Bipolar disorder Status: Acute Qualifiers: Active/Remission status: currently active Current bipolar episode type: mixed Current episode severity: moderate Qualified Code(s): F31.62 - Bipolar disorder, current episode mixed, moderate (2) Borderline personality disorder Status: Chronic Medications - Discharge Medications Gabapentin [Neurontin] 800 mg PO TID 04/03/18 [History] Buspirone HCl [Buspar] 10 mg PO BID tablet 04/06/18 [Rx] Divalproex (24 HR) [Depakote ER (24 HR)] 2,000 mg PO HS tab.er.24h 04/06/18 [Rx] Allergy/AdvReac Type Severity Reaction Status Date / Time atomoxetine [From Strattera] Allergy See Verified 01/14/18 19:38 Comments lidocaine Allergy See Verified 01/14/18 19:38 Comments morphine Allergy See Verified 01/14/18 19:38 Comments promethazine Allergy See Verified 01/14/18 19:38 Comments trazodone Allergy Anaphylaxis Verified 01/14/18 19:38 clonazepam [From Klonopin] AdvReac Depression Verified 01/14/18 19:38 quetiapine [From Seroquel] AdvReac Itching Verified 01/14/18 19:38 nicotine patch AdvReac Rash Uncoded 10/08/17 06:50 Results Procedures and tests throughout hospitalization: Completed Lab Orders Category Date Time Status Acetaminophen Stat Lab 04/03/18 16:47 Completed Basic Metabolic Panel Stat Lab 04/03/18 16:47 Completed Complete Blood Count [HEME] Stat Lab 04/03/18 16:47 Completed Drug Screen, Urine [UCHEM] Stat Lab 04/03/18 16:25 Completed Ethanol Stat Lab 04/03/18 16:47 Completed Test Result, Urine [URIN] Stat Lab 04/03/18 16:25 Completed Salicylate Stat Lab 04/03/18 16:47 Completed Urinalysis reflex Microscopic [URIN] Stat Lab 04/03/18 16:30 Completed Valproate Stat Lab 04/03/18 16:47 Completed Provider Date of admission: 04/03/18 19:20 Primary care physician: PCP NONE Discharging clinician: Jennifer Laurent Psychiatry Exam - Constitutional Vitals: Temp Pulse Resp BP Pulse Ox 98.7 F 106 18 121/75 97 04/05/18 20:00 04/05/18 20:00 04/05/18 20:00 04/05/18 20:00 04/05/18 20:00 General appearance: obese - Musculoskeletal Gait: normal Station: relaxed Strength & Tone: normal for patient - Psychiatric Patient Orientation: Yes Person, Yes Time, Yes Place Level of alertness: Alert Behavior: calm, cooperative Psychomotor activity: Normal Eye Contact: Maintains Eye Contact Mood Description: Euthymic/stable Affect description: congruent with mood, full range Speech Volume: Normal Speech pattern: normal rate, normal rhythm, normal tone, fluent, spontaneous Language & Vocabulary: consistent with education Thought Process: Linear, Goal Oriented Thought Content: No Suicidal ideation, No Homicidal ideation, No Overt delusions Perceptual Disturbances: No Auditory hallucinations, No Visual hallucinations Attention Span Ability: Capable of Focused Attention Memory Description: Grossly Intact Patient Reliability: Reliable Historian Fund of knowledge: Yes abstraction ability, Yes aware of current events Intelligence Estimate: Average Judgment: Limited Insight: Partial Hospital Course Hospital course: Ms. Melendez is a 28 year old female who was admitted for SI. Well known to staff here. This sign writer hand is familiar with her as well. Can be difficult to manage as she is impulsive, quick tempered, and tends to act out. However, this admission she has done well with controlling her emotions. Some verbal outbursts but no punching roberson or becoming aggressive. Typically she requests discharge every day. However, coped well when told she was not leaving yesterday. Even asked for PO prns which is not something that is a normal behavior for her. Appears to be at her baseline. Denies SI today. Still wants discharged. Plan is for her to live with her aunt who is supportive. Client typically lives alone but she has been using meth and having people come in and out of her apartment. Client will not accept a referral for rehab from the hospital. However, she has an appointment with her therapist on Sunday and intends to discuss AOD treatment options with her. Depakote increased this admission. Has a lab slip to check a VPA level. Client states she has only been at the increased dose for two days so recommended she have bloodwork done after three more days on medication unless having symptoms suggesting side effects. Client denies SI/HI/AH/VH. Seems to be stable for discharge and going to supportive family with outpatient follow-up scheduled for Sunday. - Time Spent with Patient Total time spent providing and/or coordinating discharge services: Assessment and Plan - Patient/Caregiver Discharge Instructions Activity: resume usual activities as tolerated Diet: low fat, low cholesterol - Follow up Plan Follow up with: [facility] [Outside] - 04/09/18 2:00 pm (You will resume weekday groups on discharge. The above appointment is with Michelle Suarez for outpatient substance abuse counseling services. You will also see Shobha Crockett on 05/16/2018 at 10:00 AM for outpatient psychiatric assessment and medication management services.) Functional capacity at discharge: independent ambulation Overall status at discharge: Stable Disposition: Home, Self-Care Quality - Multiple Antipsychotics Patient discharged on 2 or more antipsychotic medications: No Procedures - Procedures Procedures: Medication Management, Crisis Stabilization, Supportive Therapy, Group Therapy
[2018-04-06 11:02] VITALS: BP 105/69
[2018-04-06] MEDS: Gabapentin 400 MG CAPSULE PO SCH ×2 (11:23→14:51)
[2018-04-06] MEDS: Nicotine 14 MG PATCH.TD24 TD SCH (11:23)
== END 2018-04-06 15:30 | disposition home or self-care (01) | DRG 885 ==
LOC: EMEROOARM 16:15 → 1ANU 19:11
PROVIDERS: ADMIT Psychiatry & Neurology Forensic Psychiatry; ATTEND Psychiatry & Neurology Forensic Psychiatry

== ENCOUNTER 2018-06-06 19:43 | Inpatient (IN) ==
--- NOTE | 2018-06-06 19:55 | Emergency Department Note ---
Disposition Clinical Impression: Depression, Substance abuse Disposition: Admitted As Inpatient Condition: Good General Adult HPI - General Chief complaint: ED Psychiatric Symptoms Stated complaint: "Mental Health Evaluation" Time Seen by Provider: 06/06/18 19:49 - History of Present Illness Pain Scale: 0 - Related Data Home Medications Medication Instructions Recorded Confirmed Gabapentin [Neurontin] 800 mg PO TID 06/06/18 06/06/18 OLANZapine [Zyprexa] 10 mg PO HS 06/06/18 06/06/18 RX: Buspirone HCl [Buspar] 7.5 mg PO BID 06/06/18 06/06/18 Previous Rx's Medication Instructions Recorded RX: Divalproex (24 HR) [Depakote 2,000 mg PO HS tab.er.24h 04/06/18 ER (24 HR)] Allergies Allergy/AdvReac Type Severity Reaction Status Date / Time atomoxetine [From Strattera] Allergy See Verified 06/06/18 19:47 Comments lidocaine Allergy See Verified 06/06/18 19:47 Comments morphine Allergy See Verified 06/06/18 19:47 Comments promethazine Allergy See Verified 06/06/18 19:47 Comments trazodone Allergy Anaphylaxis Verified 06/06/18 19:47 clonazepam [From Klonopin] AdvReac Depression Verified 06/06/18 19:47 quetiapine [From Seroquel] AdvReac Itching Verified 06/06/18 19:47 nicotine patch AdvReac Rash Uncoded 06/06/18 19:47 Past Medical History - Past Medical History Medical history: Reports: hypertension Surgical history: Reports: other Psychiatric history: Reports: anxiety, previous psychiatric hospitalization, other 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 - Social History Smoking Status: Former smoker Smokeless Tobacco Status: Yes Alcohol use: Reports: heavy, recent Drug use: Reports: marijuana, methamphetamine Course Vital Signs Temperature 98.0 F 06/06/18 19:47 Pulse Rate 101 06/06/18 19:47 Respiratory Rate 18 06/06/18 19:47 Blood Pressure 141/75 06/06/18 19:47 O2 Sat by Pulse Oximetry 98 06/06/18 19:47 Temperature 98.3 F 06/06/18 23:30 Pulse Rate 87 06/06/18 23:30 Respiratory Rate 12 06/06/18 23:30 Blood Pressure 93/59 06/06/18 23:30 O2 Sat by Pulse Oximetry 97 06/06/18 23:30 Oxygen Delivery Oxygen Delivery Room Air Medical Decision Making - Lab Data Result diagrams: 06/06/18 19:57 06/06/18 19:57 Lab Results 06/06/18 06/06/18 06/06/18 Range/Units 19:57 19:57 20:48 WBC 18.2 H (4.3-11.1) K/mcL RBC 5.56 H (3.82-4.97) M/mcL Hgb 16.1 H (11.5-15.4) g/dL Hct 48.5 H (35.3-44.9) % MCV 87.2 (83.0-100.0) fL MCH 29.0 (28.0-33.3) pg MCHC 33.2 (31.6-35.5) g/dL RDW 13.3 (11.5-14.5) % Plt Count 289 (140-400) K/mcL MPV 10.9 (9.4-12.4) fL Immature Gran % 0.4 (0-4) % Seg Neutrophils % 59.7 % Lymphocytes % 29.4 % Monocytes % 8.0 % Eosinophils % 1.7 % Basophils % 0.8 % Neutrophils # 10.9 H (1.6-8.9) K/mcL Lymphocytes # 5.4 H (0.6-4.6) K/mcL Monocytes # 1.5 H (0.0-1.3) K/mcL Eosinophils # 0.3 (0.0-0.6) K/mcL Basophils # 0.1 (0.0-0.2) K/mcL Sodium 137 (136-145) mEq/L Potassium 3.7 (3.5-5.1) mEq/L Chloride 102 (98-107) mEq/L Carbon Dioxide 26 (23-29) mEq/L BUN 16 (6-20) mg/dL Creatinine 0.89 (0.60-1.20) mg/dL Est GFR ( Amer) > 60 (> 60) Est GFR (Non-Af Amer) > 60 (> 60) BUN/Creatinine Ratio 18 (6-26) Glucose 102 (70-105) mg/dL Calculated Osmolality 285 (280-300) Calcium 10.2 (8.6-10.3) mg/dL Urine Color Dark Yellow (Yellow) Urine Clarity Clear (Clear) Urine pH 5.5 (5.0-8.0) pH Units Ur Specific [place] > 1.030 H (1.010-1.025) Urine Protein 100 H (Neg-Trace) mg/dL Urine Glucose (UA) Normal (Normal) mg/dL Urine Ketones Negative (Negative) mg/dL Urine Blood Negative (Negative) Urine Nitrite Negative (Negative) Urine Bilirubin Small H (Negative) Urine Urobilinogen Normal (Normal) mg/dL Ur Leukocyte Esterase Negative (Negative) Urine Microscopic RBC 5-15 H (0-3) per hpf Urine Microscopic WBC 5-15 H (0-3) per hpf Ur Squamous Epith Cells Many H (None-Few) per lpf Urine Bacteria Moderate H (None-Few) per hpf Hyaline Casts None Seen (None-Few) per lpf Urine Test (Negative) Salicylates < 2.5 L (15.0-30.0) mg/dL Urine Opiates Screen (Tgaqip=546) ng/mL Acetaminophen < 10 L (10-20) mcg/mL Ur Barbiturates Screen (Xqgwfq=944) ng/mL Ur Phencyclidine Scrn (Cutoff=25) ng/mL Ur Amphetamines Screen (Xpgqxv=3379) ng/mL U Benzodiazepines Scrn (Bqqwvr=702) ng/mL Urine Cocaine Screen (Cutoff= 300) ng/mL U Marijuana (THC) Screen (Cutoff = 50) ng/mL Ur Drug Screen Interp Ethyl Alcohol < 10 (Less than 10) mg/dL 06/06/18 06/06/18 Range/Units 20:48 20:48 WBC (4.3-11.1) K/mcL RBC (3.82-4.97) M/mcL Hgb (11.5-15.4) g/dL Hct (35.3-44.9) % MCV (83.0-100.0) fL MCH (28.0-33.3) pg MCHC (31.6-35.5) g/dL RDW (11.5-14.5) % Plt Count (140-400) K/mcL MPV (9.4-12.4) fL Immature Gran % (0-4) % Seg Neutrophils % % Lymphocytes % % Monocytes % % Eosinophils % % Basophils % % Neutrophils # (1.6-8.9) K/mcL Lymphocytes # (0.6-4.6) K/mcL Monocytes # (0.0-1.3) K/mcL Eosinophils # (0.0-0.6) K/mcL Basophils # (0.0-0.2) K/mcL Sodium (136-145) mEq/L Potassium (3.5-5.1) mEq/L Chloride (98-107) mEq/L Carbon Dioxide (23-29) mEq/L BUN (6-20) mg/dL Creatinine (0.60-1.20) mg/dL Est GFR ( Amer) (> 60) Est GFR (Non-Af Amer) (> 60) BUN/Creatinine Ratio (6-26) Glucose (70-105) mg/dL Calculated Osmolality (280-300) Calcium (8.6-10.3) mg/dL Urine Color (Yellow) Urine Clarity (Clear) Urine pH (5.0-8.0) pH Units Ur Specific [place] (1.010-1.025) Urine Protein (Neg-Trace) mg/dL Urine Glucose (UA) (Normal) mg/dL Urine Ketones (Negative) mg/dL Urine Blood (Negative) Urine Nitrite (Negative) Urine Bilirubin (Negative) Urine Urobilinogen (Normal) mg/dL Ur Leukocyte Esterase (Negative) Urine Microscopic RBC (0-3) per hpf Urine Microscopic WBC (0-3) per hpf Ur Squamous Epith Cells (None-Few) per lpf Urine Bacteria (None-Few) per hpf Hyaline Casts (None-Few) per lpf Urine Test Negative (Negative) Salicylates (15.0-30.0) mg/dL Urine Opiates Screen Positive H (Letmwl=282) ng/mL Acetaminophen (10-20) mcg/mL Ur Barbiturates Screen Negative (Druwyz=124) ng/mL Ur Phencyclidine Scrn Negative (Cutoff=25) ng/mL Ur Amphetamines Screen Positive H (Edsoeb=4412) ng/mL U Benzodiazepines Scrn Negative (Oojqfk=323) ng/mL Urine Cocaine Screen Negative (Cutoff= 300) ng/mL U Marijuana (THC) Screen Positive H (Cutoff = 50) ng/mL Ur Drug Screen Interp See Below Ethyl Alcohol (Less than 10) mg/dL Attestation Statement - Attestation Attestation: The history, physical exam, and medical decision making was performed by the medical student either while I was physically present and actively involved or I personally re-performed the exam and medical decision making. I have verified the accuracy of the medical student's documentation with regards to the history, physical exam findings, and medical decision making. [id number] time provided Patient states she feels hopeless. She has been on a methamphetamine "dow" for the past 4 days. She states she wants to speak to a mental health counselor. She does not appear in any acute distress upon arrival. I evaluated this patient conjunction with medical student
[2018-06-06 20:24] LABS: Basophils # 0.1 K/mcL (0.0-0.2); Basophils % 0.8 %; Eosinophils # 0.3 K/mcL (0.0-0.6); Eosinophils % 1.7 %; Hematocrit 48.5 % (35.3-44.9); Hemoglobin 16.1 g/dL (11.5-15.4); Immature Granulocytes % 0.4 % (0-4); Lymphocytes # 5.4 K/mcL (0.6-4.6); Lymphocytes % 29.4 %; Mean Corpuscular HGB Conc 33.2 g/dL (31.6-35.5); Mean Corpuscular Volume 87.2 fL (83.0-100.0); Mean Platelet Volume 10.9 fL (9.4-12.4); Monocytes # 1.5 K/mcL (0.0-1.3); Neutrophils # 10.9 K/mcL (1.6-8.9); Platelet Count 289 K/mcL (140-400); Red Blood Count 5.56 M/mcL (3.82-4.97); Red Cell Distribution Width 13.3 % (11.5-14.5); Segmented Neutrophils % 59.7 %
--- NOTE | 2018-06-06 20:37 | Emergency Department Note ---
Disposition Clinical Impression: Depression, Substance abuse Disposition: Admitted As Inpatient Condition: Good Referrals: NONE,PCP [Primary Care Provider] - Forms: ED Satisfaction Letter General Adult HPI - General Chief complaint: ED Psychiatric Symptoms Stated complaint: "Mental Health Evaluation" Time Seen by Provider: 06/06/18 19:49 Source: patient Limitations: no limitations - History of Present Illness HPI Narrative: 28 yof with PMHx of heart palpitations, HTN, and mental illness presents to the ED for evaluation and adjustment of her psychiatric medications. She states that she was on a "meth dow" 4 days ago. She started snorting methamphetamines a year ago and states that she has been using meth every day for the past month. She stopped 4 days ago due to feeling hopeless and increased heart palpitations. She also uses marijuana and says that she has been smoking marijuana daily for the past 4 days to cope. She says taht she never mixes her marijuana with her methamphetamine use. She denies use of any other illicit drug use. She has been having racing thoughts and difficulty sleeping for the past 4 days. She says that she has only slept 6 hours in that time frame. She states that yesterday she felt suicidal and "did not want to be here anymore", however she had no plan and is no longer feeling this way. 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 She states that her psychiatric medications recently changed and she would like to go back to her previous regimen. Today she is complaining of heart palpitations, difficulty breathing, and feeling hopeless. She denies chest pain, nausea, vomiting, abdominal pain, diarrhea, hallucinations. Onset (ago): day(s) Pain Scale: 0 - Related Data Home Medications Medication Instructions Recorded Confirmed Buspirone HCl [Buspar] 7.5 mg PO BID 06/06/18 06/06/18 Gabapentin [Neurontin] 800 mg PO TID 06/06/18 06/06/18 OLANZapine [Zyprexa] 10 mg PO HS 06/06/18 06/06/18 Previous Rx's Medication Instructions Recorded Divalproex (24 HR) [Depakote ER 2,000 mg PO HS tab.er.24h 04/06/18 (24 HR)] Allergies Allergy/AdvReac Type Severity Reaction Status Date / Time atomoxetine [From Strattera] Allergy See Verified 06/06/18 19:47 Comments lidocaine Allergy See Verified 06/06/18 19:47 Comments morphine Allergy See Verified 06/06/18 19:47 Comments promethazine Allergy See Verified 06/06/18 19:47 Comments trazodone Allergy Anaphylaxis Verified 06/06/18 19:47 clonazepam [From Klonopin] AdvReac Depression Verified 06/06/18 19:47 quetiapine [From Seroquel] AdvReac Itching Verified 06/06/18 19:47 nicotine patch AdvReac Rash Uncoded 06/06/18 19:47 Constitutional: Denies: fever, chills, weakness Eyes: Denies: eye pain, eye discharge ENT ED: Denies: throat pain, congestion, dysphagia Cardiovascular: Reports: palpitations. Denies: chest pain, syncope Respiratory: Reports: dyspnea. Denies: cough Gastrointestinal: Denies: abdominal pain, nausea, vomiting, diarrhea Genitourinary: Denies: urgency, dysuria Musculoskeletal: Denies: back pain, neck pain Integumentary: Denies: rash Neurological: Denies: headache Psychiatric: Reports: anxiety, depression, suicidal thoughts (Yesterday, not today. ). 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 - Social History Smoking Status: Former smoker Smokeless Tobacco Status: Yes Alcohol use: Reports: heavy, recent Drug use: Reports: marijuana, methamphetamine Physical Exam - General Limitations: no limitations General appearance: alert, obese - Head Head exam: atraumatic, normocephalic, normal inspection - Eye Eye exam: Present: normal appearance - ENT ENT exam: normal exam, normal oropharynx, mucous membranes moist - Neck Neck exam: Present: normal inspection, full ROM - Chest Chest inspection: Present: normal inspection, symmetric chest wall rise - Respiratory Respiratory exam: Present: normal lung sounds bilaterally - Cardiovascular Cardiovascular exam: Present: regular rate, normal rhythm, normal heart sounds - Abdominal Exam Abdominal exam: Present: soft, Non-Tender, normal bowel sounds - Extremities Exam Extremities exam: Present: normal inspection, full ROM - Neurological Exam Neurological exam: Present: alert, oriented X3 - Psychiatric Psychiatric exam: Present: agitated. Absent: suicidal ideation (Had suicidal ideation without plan yesterday) - Skin Skin exam: Present: warm, dry Course Vital Signs Temperature 98.0 F 06/06/18 19:47 Pulse Rate 101 06/06/18 19:47 Respiratory Rate 18 06/06/18 19:47 Blood Pressure 141/75 06/06/18 19:47 O2 Sat by Pulse Oximetry 98 06/06/18 19:47 Temperature 98.3 F 06/06/18 23:30 Pulse Rate 87 06/06/18 23:30 Respiratory Rate 12 06/06/18 23:30 Blood Pressure 93/59 06/06/18 23:30 O2 Sat by Pulse Oximetry 97 06/06/18 23:30 Oxygen Delivery Oxygen Delivery Room Air Medical Decision Making - MDM Narrative Medical decision making narrative: Patient's complaints of sleeplessness, racing thoughts, palpitations, difficulty breathing are likely associated with her methamphetamine use. Patient states that she "did not want to be here anymore" yesterday but would never take her own life. She currently does not appear to be SI. She came into the ED today because her sister forced her to come. She would likely benefit from counseling, detox and rehab. After evaluation by 1A, she will be admitted to voluntarily. - Medical Records Medical records reviewed: Yes I reviewed the patient's medical records. - Lab Data Lab results reviewed: Yes I reviewed the patient's lab results. Result diagrams: 06/06/18 19:57 06/06/18 19:57 Lab Results 06/06/18 06/06/18 06/06/18 Range/Units 19:57 19:57 20:48 WBC 18.2 H (4.3-11.1) K/mcL RBC 5.56 H (3.82-4.97) M/mcL Hgb 16.1 H (11.5-15.4) g/dL Hct 48.5 H (35.3-44.9) % MCV 87.2 (83.0-100.0) fL MCH 29.0 (28.0-33.3) pg MCHC 33.2 (31.6-35.5) g/dL RDW 13.3 (11.5-14.5) % Plt Count 289 (140-400) K/mcL MPV 10.9 (9.4-12.4) fL Immature Gran % 0.4 (0-4) % Seg Neutrophils % 59.7 % Lymphocytes % 29.4 % Monocytes % 8.0 % Eosinophils % 1.7 % Basophils % 0.8 % Neutrophils # 10.9 H (1.6-8.9) K/mcL Lymphocytes # 5.4 H (0.6-4.6) K/mcL Monocytes # 1.5 H (0.0-1.3) K/mcL Eosinophils # 0.3 (0.0-0.6) K/mcL Basophils # 0.1 (0.0-0.2) K/mcL Sodium 137 (136-145) mEq/L Potassium 3.7 (3.5-5.1) mEq/L Chloride 102 (98-107) mEq/L Carbon Dioxide 26 (23-29) mEq/L BUN 16 (6-20) mg/dL Creatinine 0.89 (0.60-1.20) mg/dL Est GFR ( Amer) > 60 (> 60) Est GFR (Non-Af Amer) > 60 (> 60) BUN/Creatinine Ratio 18 (6-26) Glucose 102 (70-105) mg/dL Calculated Osmolality 285 (280-300) Calcium 10.2 (8.6-10.3) mg/dL Urine Color Dark Yellow (Yellow) Urine Clarity Clear (Clear) Urine pH 5.5 (5.0-8.0) pH Units Ur Specific [place] > 1.030 H (1.010-1.025) Urine Protein 100 H (Neg-Trace) mg/dL Urine Glucose (UA) Normal (Normal) mg/dL Urine Ketones Negative (Negative) mg/dL Urine Blood Negative (Negative) Urine Nitrite Negative (Negative) Urine Bilirubin Small H (Negative) Urine Urobilinogen Normal (Normal) mg/dL Ur Leukocyte Esterase Negative (Negative) Urine Microscopic RBC 5-15 H (0-3) per hpf Urine Microscopic WBC 5-15 H (0-3) per hpf Ur Squamous Epith Cells Many H (None-Few) per lpf Urine Bacteria Moderate H (None-Few) per hpf Hyaline Casts None Seen (None-Few) per lpf Urine Test (Negative) Salicylates < 2.5 L (15.0-30.0) mg/dL Urine Opiates Screen (Oqhrwi=159) ng/mL Acetaminophen < 10 L (10-20) mcg/mL Ur Barbiturates Screen (Robpvo=864) ng/mL Ur Phencyclidine Scrn (Cutoff=25) ng/mL Ur Amphetamines Screen (Krpgsj=1815) ng/mL U Benzodiazepines Scrn (Trlzfg=673) ng/mL Urine Cocaine Screen (Cutoff= 300) ng/mL U Marijuana (THC) Screen (Cutoff = 50) ng/mL Ur Drug Screen Interp Ethyl Alcohol < 10 (Less than 10) mg/dL 06/06/18 06/06/18 Range/Units 20:48 20:48 WBC (4.3-11.1) K/mcL RBC (3.82-4.97) M/mcL Hgb (11.5-15.4) g/dL Hct (35.3-44.9) % MCV (83.0-100.0) fL MCH (28.0-33.3) pg MCHC (31.6-35.5) g/dL RDW (11.5-14.5) % Plt Count (140-400) K/mcL MPV (9.4-12.4) fL Immature Gran % (0-4) % Seg Neutrophils % % Lymphocytes % % Monocytes % % Eosinophils % % Basophils % % Neutrophils # (1.6-8.9) K/mcL Lymphocytes # (0.6-4.6) K/mcL Monocytes # (0.0-1.3) K/mcL Eosinophils # (0.0-0.6) K/mcL Basophils # (0.0-0.2) K/mcL Sodium (136-145) mEq/L Potassium (3.5-5.1) mEq/L Chloride (98-107) mEq/L Carbon Dioxide (23-29) mEq/L BUN (6-20) mg/dL Creatinine (0.60-1.20) mg/dL Est GFR ( Amer) (> 60) Est GFR (Non-Af Amer) (> 60) BUN/Creatinine Ratio (6-26) Glucose (70-105) mg/dL Calculated Osmolality (280-300) Calcium (8.6-10.3) mg/dL Urine Color (Yellow) Urine Clarity (Clear) Urine pH (5.0-8.0) pH Units Ur Specific [place] (1.010-1.025) Urine Protein (Neg-Trace) mg/dL Urine Glucose (UA) (Normal) mg/dL Urine Ketones (Negative) mg/dL Urine Blood (Negative) Urine Nitrite (Negative) Urine Bilirubin (Negative) Urine Urobilinogen (Normal) mg/dL Ur Leukocyte Esterase (Negative) Urine Microscopic RBC (0-3) per hpf Urine Microscopic WBC (0-3) per hpf Ur Squamous Epith Cells (None-Few) per lpf Urine Bacteria (None-Few) per hpf Hyaline Casts (None-Few) per lpf Urine Test Negative (Negative) Salicylates (15.0-30.0) mg/dL Urine Opiates Screen Positive H (Sefxqd=383) ng/mL Acetaminophen (10-20) mcg/mL Ur Barbiturates Screen Negative (Zjmcgu=756) ng/mL Ur Phencyclidine Scrn Negative (Cutoff=25) ng/mL Ur Amphetamines Screen Positive H (Xqacvc=7878) ng/mL U Benzodiazepines Scrn Negative (Xyqscs=586) ng/mL Urine Cocaine Screen Negative (Cutoff= 300) ng/mL U Marijuana (THC) Screen Positive H (Cutoff = 50) ng/mL Ur Drug Screen Interp See Below Ethyl Alcohol (Less than 10) mg/dL
[2018-06-06 20:40] LABS: Acetaminophen < 10 mcg/mL (10-20); BUN/Creatinine Ratio 18 (6-26); Blood Urea Nitrogen 16 mg/dL (6-20); Calcium 10.2 mg/dL (8.6-10.3); Carbon Dioxide 26 mEq/L (23-29); Chloride 102 mEq/L (98-107); Ethanol < 10 mg/dL (Less than 10); Glucose 102 mg/dL (70-105); Osmolality,Calculated 285 (280-300); Potassium 3.7 mEq/L (3.5-5.1); Salicylate < 2.5 mg/dL (15.0-30.0); Sodium 137 mEq/L (136-145); eGFR For Non-African Americans > 60 (> 60)
[2018-06-06 20:58] LABS: Bilirubin,Urine Small (Negative); Blood,Urine Negative (Negative); Clarity,Urine Clear (Clear); Color,Urine Dark Yellow (Yellow); Glucose,Urine (UA) Normal (Normal); Ketones,Urine Negative (Negative); Leukocyte Esterase,Urine Negative (Negative); Nitrite,Urine Negative (Negative); PH,Urine 5.5 pH Units (5.0-8.0); Protein,Urine 100 mg/dL (Neg-Trace); Specific Gravity,Urine > 1.030 (1.010-1.025); Urobilinogen,Urine Normal (Normal)
[2018-06-06 20:59] LABS: Bacteria,Urine Moderate per hpf (None-Few); Hyaline Casts,Urine None Seen per lpf (None-Few); Squamous Epithelial Cell,Urine Many per lpf (None-Few)
[2018-06-06 21:09] LABS: Amphetamine Screen,Urine Positive ng/mL (Cutoff=1000); Barbiturate Screen,Urine Negative ng/mL (Cutoff=200); Benzodiazepines Screen,Urine Negative ng/mL (Cutoff=200); Cannabinoid Screen,Urine Positive ng/mL (Cutoff = 50); Cocaine Screen,Urine Negative ng/mL (Cutoff= 300); Opiate Screen,Urine Positive ng/mL (Cutoff=300); Phencyclidine Screen,Urine Negative ng/mL (Cutoff=25)
[2018-06-07] MEDS ORDERED: Haloperidol Lactate 5 MG/ML VIAL IM PRN (03:46)
[2018-06-07] MEDS ORDERED: *HR* LORazepam 2 MG/ML VIAL IM PRN (03:46)
[2018-06-07] MEDS ORDERED: traZODone 50 MG TABLET PO PRN (03:46)
[2018-06-07] MEDS ORDERED: *HR* LORazepam 1 MG TABLET PO PRN (03:46)
[2018-06-07] MEDS ORDERED: MOM Conc 10 ML UD.LIQ PO PRN (03:46)
[2018-06-07] MEDS ORDERED: Mag Hydrox/Al Hydrox/Simeth 30 ML UDC PO PRN (03:46)
[2018-06-07] MEDS: Nicotine 21 MG PATCH.TD24 TD SCH (09:45)
--- NOTE | 2018-06-07 10:29 | Psychiatry History & Physical ---
Date of Encounter: 06/07/18 Time of Encounter: 09:45 History of Present Illness Medicare Admission Attestation: For traditional Medicare patients the provided hospital inpatient services are reasonable and necessary and in the case of services not specified as inpatient-only under 42 CFR 419.22 (n), that they are appropriately provided as inpatient services in accordance 42 CFR 412.3. For Critical Access Hospital the patient may reasonably be expected to be discharged or transferred to a hospital within 96 hours after admission to the Critical Access Hospital. Admitted From: Emergency Dept Plans for Post Hospital Care: Home History of Present Illness: Ms. Melendez is a 28 year old female , never , who presents for polysubstance use D/O, mood and depression to the emergency department. Pt noted thoughts that she wants to "hurt myself when I came in. Pt noted she felt safe and comfortable on the unit. Pt was in agreement with treatment plan. Pt noted that she is doing better today. Pt noted she slept 8-10 hours last night. Pt noted her appetite is reduced. Pt rated her depression a 5, on a scale of zero to ten with ten being the worst and zero being none. Pt rate her anxiety a 8, on the same scale. Pt denied any current visual or auditory hallucinations. Pt denied any thoughts to harm herself or anyone else. Pt noted she has her own home in [place], [place]. Pt noted that her highest level of education is [employer]. Pt noted she is currently unemployed, however receives SSDI. Pt noted multiple inpt psychiatric hospitalizations. Pt noted multiple previous suicide attempts approx. 6months ago via cutting and overdose. Pt denied any family hx of suicide. PT agreed to utilizing depakote and olanzapine for medication management of Bipolar D/O. Pt was educated on the risks benefits and side-effects of these medications including no medication, pt was in agreement. Pt denied any hx of HIV, Hep C, TBIs or seizures. No TD noted, AIMS=0 Tobacco: Denies Alcohol: 1-[address]: Methamphetamine daily, snorting or smoke Caffeine: 2-3 per day 1.Interval hx 2.Continue current medications 3.Review current labs 4.Pt had an opportunity to ask questions and discuss current treatment plan. 5.Supportive therapy was provided 6.Pt encouraged to consider group or individual therapy 7.Pt was in agreement with treatment plan. 8.Pt was educated on the risks benefits and side effects of current medications. Past Med Surg Social Fam HX - Past Medical History Medical history: hypertension - Past Psychiatric History Psychiatric history: Reports: depression, prior suicide attempt, previous psychiatric hospitalization Family psychiatric history: Yes Family History of Suicide: None - Past Surgical History Surgical History: other - Social History Smoking Status: Former smoker Smokeless Tobacco Status: Yes Alcohol use: heavy, recent Drug use: marijuana, methamphetamine - Family History Mother Family Member Ethnicity: Non- Living Status: Still Living Hx Family Cardiac Disorders: No Hx Family Respiratory Disorders: No Hx Family Cancer: No Hx Family GI Disorders: Yes (Crohn's disease) Hx Family Endocrine Disorder: No Hx Family Neuromuscular Disorders: No Hx Family Neurologic Disorders: No Hx Family HEENT Disorders: No Hx Family Autoimmune Disorders: No Father Adopted: No Family Member Ethnicity: Non- Living Status: Still Living Hx Family Cardiac Disorders: Yes (HTN) Hx Family Respiratory Disorders: Yes (needs CPAP) Hx Family Cancer: No Hx Family GI Disorders: No Hx Family Endocrine Disorder: Yes (DM) Hx Family Neuromuscular Disorders: No Hx Family Neurologic Disorders: No Hx Family HEENT Disorders: No Hx Family Autoimmune Disorders: No Sister Adopted: No Family Member Ethnicity: Non- Living Status: Still Living Hx Family Cardiac Disorders: No Hx Family Respiratory Disorders: No Hx Family Cancer: No Hx Family GI Disorders: No Hx Family Endocrine Disorder: No Hx Family Neuromuscular Disorders: No Hx Family Neurologic Disorders: No Hx Family HEENT Disorders: No Hx Family Autoimmune Disorders: No Medications & Allergies Divalproex (24 HR) [Depakote ER (24 HR)] 2,000 mg PO HS tab.er.24h 04/06/18 [Rx] Buspirone HCl [Buspar] 7.5 mg PO BID 06/06/18 [History] Gabapentin [Neurontin] 800 mg PO TID 06/06/18 [History] OLANZapine [Zyprexa] 10 mg PO HS 06/06/18 [History] Allergy/AdvReac Type Severity Reaction Status Date / Time atomoxetine [From Strattera] Allergy See Verified 06/06/18 19:47 Comments lidocaine Allergy See Verified 06/06/18 19:47 Comments morphine Allergy See Verified 06/06/18 19:47 Comments promethazine Allergy See Verified 06/06/18 19:47 Comments trazodone Allergy Anaphylaxis Verified 06/06/18 19:47 clonazepam [From Klonopin] AdvReac Depression Verified 06/06/18 19:47 quetiapine [From Seroquel] AdvReac Itching Verified 06/06/18 19:47 nicotine patch AdvReac Rash Uncoded 06/06/18 19:47 Review of Systems Constitutional: Denies: fever, chills, weakness, weight change Eyes: Denies: eye pain, vision change Ears, Nose, Throat: Denies: ear pain, throat pain, dental pain, hearing loss, congestion Cardiovascular: Denies: chest pain, palpitations, dyspnea on exertion Respiratory: Denies: cough, dyspnea, wheezes Gastrointestinal: Denies: abdominal pain, nausea, vomiting, diarrhea, constipation Genitourinary female: Denies: urgency, dysuria, frequency, abnormal menses, dyspareunia Musculoskeletal: Denies: joint swelling, joint pain Integumentary: Denies: rash, lesions, pruritus Neurological: Denies: headache, weakness, numbness, memory loss Psychiatric: Reports: depression, anxiety, abnormal sleep pattern, suicidal ideation Endocrine: Denies: fatigue, heat or cold intolerance Hematologic/Lymphatic: Denies: easy bruising, lymphadenopathy Allergic/Immunologic: Denies: urticaria, itchy eyes Exam - HEENT Head exam IM: Present: atraumatic Eye exam IM: Present: EOMI, normal appearance, PERRL ENT exam IM: Present: normal exam - Neurological Neurological exam: Present: CN II-XII intact - Respiratory Respiratory exam IM: Present: CTAB - GI/Abdominal GI/Abdominal exam IM: Present: normal bowel sounds, soft. Absent: tenderness - Extremities Extremities exam IM: Present: full ROM - Skin Skin exam IM: Present: dry, warm - Constitutional Vitals: Temp Pulse Resp BP Pulse Ox 97.8 F 84 18 77/49 97 06/07/18 09:00 06/07/18 09:00 06/07/18 09:00 06/07/18 09:00 06/06/18 23:30 General appearance: age & developmentally appropriate, well-groomed, well- nourished - Musculoskeletal Gait: normal Station: relaxed Strength & Tone: normal for patient - Psychiatric Patient Orientation: Yes Person, Yes Time, Yes Place Level of alertness: Alert Behavior: calm, cooperative Psychomotor activity: Normal Eye Contact: Maintains Eye Contact Mood Description: Depressed Affect description: congruent with mood, dysphoric Speech Volume: Normal Speech pattern: normal rate, normal rhythm, normal tone, fluent, spontaneous Language & Vocabulary: consistent with education Thought Process: Linear, Goal Oriented Thought Content: Yes Suicidal ideation, No Homicidal ideation, No Overt delusions Perceptual Disturbances: No Auditory hallucinations, No Visual hallucinations Attention Span Ability: Capable of Focused Attention Memory Description: Grossly Intact Patient Reliability: Reliable Historian Fund of knowledge: Yes abstraction ability, Yes average, Yes aware of current events Intelligence Estimate: Average Judgment: Limited Insight: Partial Results - Drug Levels and Toxicology Drug Levels and Toxicology: Drug Levels and Toxicity 06/06/18 06/06/18 19:57 20:48 Urine Opiates Screen Positive H Acetaminophen < 10 L Ur Barbiturates Screen Negative Ur Phencyclidine Scrn Negative Ur Amphetamines Screen Positive H U Benzodiazepines Scrn Negative Urine Cocaine Screen Negative U Marijuana (THC) Screen Positive H Ethyl Alcohol < 10 - Labs Labs: Laboratory Last Values WBC 18.2 K/mcL (4.3-11.1) H 06/06/18 19:57 RBC 5.56 M/mcL (3.82-4.97) H 06/06/18 19:57 Hgb 16.1 g/dL (11.5-15.4) H 06/06/18 19:57 Hct 48.5 % (35.3-44.9) H 06/06/18 19:57 MCV 87.2 fL (83.0-100.0) 06/06/18 19:57 MCH 29.0 pg (28.0-33.3) 06/06/18 19:57 MCHC 33.2 g/dL (31.6-35.5) 06/06/18 19:57 RDW 13.3 % (11.5-14.5) 06/06/18 19:57 Plt Count 289 K/mcL (140-400) 06/06/18 19:57 MPV 10.9 fL (9.4-12.4) 06/06/18 19:57 Immature Gran % 0.4 % (0-4) 06/06/18 19:57 Seg Neutrophils % 59.7 % 06/06/18 19:57 Lymphocytes % 29.4 % 06/06/18 19:57 Monocytes % 8.0 % 06/06/18 19:57 Eosinophils % 1.7 % 06/06/18 19:57 Basophils % 0.8 % 06/06/18 19:57 Neutrophils # 10.9 K/mcL (1.6-8.9) H 06/06/18 19:57 Lymphocytes # 5.4 K/mcL (0.6-4.6) H 06/06/18 19:57 Monocytes # 1.5 K/mcL (0.0-1.3) H 06/06/18 19:57 Eosinophils # 0.3 K/mcL (0.0-0.6) 06/06/18 19:57 Basophils # 0.1 K/mcL (0.0-0.2) 06/06/18 19:57 Sodium 137 mEq/L (136-145) 06/06/18 19:57 Potassium 3.7 mEq/L (3.5-5.1) 06/06/18 19:57 Chloride 102 mEq/L (98-107) 06/06/18 19:57 Carbon Dioxide 26 mEq/L (23-29) 06/06/18 19:57 BUN 16 mg/dL (6-20) 06/06/18 19:57 Creatinine 0.89 mg/dL (0.60-1.20) 06/06/18 19:57 Est GFR ( Amer) > 60 (> 60) 06/06/18 19:57 Est GFR (Non-Af Amer) > 60 (> 60) 06/06/18 19:57 BUN/Creatinine Ratio 18 (6-26) 06/06/18 19:57 Glucose 102 mg/dL (70-105) 06/06/18 19:57 Calculated Osmolality 285 (280-300) 06/06/18 19:57 Calcium 10.2 mg/dL (8.6-10.3) 06/06/18 19:57 Urine Color Dark Yellow (Yellow) 06/06/18 20:48 Urine Clarity Clear (Clear) 06/06/18 20:48 Urine pH 5.5 pH Units (5.0-8.0) 06/06/18 20:48 Ur Specific [place] > 1.030 (1.010-1.025) H 06/06/18 20:48 Urine Protein 100 mg/dL (Neg-Trace) H 06/06/18 20:48 Urine Glucose (UA) Normal mg/dL (Normal) 06/06/18 20:48 Urine Ketones Negative mg/dL (Negative) 06/06/18 20:48 Urine Blood Negative (Negative) 06/06/18 20:48 Urine Nitrite Negative (Negative) 06/06/18 20:48 Urine Bilirubin Small (Negative) H 06/06/18 20:48 Urine Urobilinogen Normal mg/dL (Normal) 06/06/18 20:48 Ur Leukocyte Esterase Negative (Negative) 06/06/18 20:48 Urine Microscopic RBC 5-15 per hpf (0-3) H 06/06/18 20:48 Urine Microscopic WBC 5-15 per hpf (0-3) H 06/06/18 20:48 Ur Squamous Epith Cells Many per lpf (None-Few) H 06/06/18 20:48 Urine Bacteria Moderate per hpf (None-Few) H 06/06/18 20:48 Hyaline Casts None Seen per lpf (None-Few) 06/06/18 20:48 Urine Test Negative (Negative) 06/06/18 20:48 Salicylates < 2.5 mg/dL (15.0-30.0) L 06/06/18 19:57 Urine Opiates Screen Positive ng/mL (Rzoddo=544) H 06/06/18 20:48 Acetaminophen < 10 mcg/mL (10-20) L 06/06/18 19:57 Ur Barbiturates Screen Negative ng/mL (Szmzje=403) 06/06/18 20:48 Ur Phencyclidine Scrn Negative ng/mL (Cutoff=25) 06/06/18 20:48 Ur Amphetamines Screen Positive ng/mL (Rgriii=9317) H 06/06/18 20:48 U Benzodiazepines Scrn Negative ng/mL (Scsnih=103) 06/06/18 20:48 Urine Cocaine Screen Negative ng/mL (Cutoff= 300) 06/06/18 20:48 U Marijuana (THC) Screen Positive ng/mL (Cutoff = 50) H 06/06/18 20:48 Ur Drug Screen Interp See Below 06/06/18 20:48 Ethyl Alcohol < 10 mg/dL (Less than 10) 06/06/18 19:57 Assessment and Plan (1) Borderline personality disorder Current visit: Yes Status: Chronic Plan: Admit inpatient for safety and stabilization, Close observation, Suicide Precautions per unit protocol, Encourage participation in unit milieu, Group Therapy, Monitor sleep, Monitor appetite Risks, benefits, side effects, alternatives discussed w/pt: Yes Patient agreeable to treatment: Yes Plans for Post Hospital Care: at Home (2) Anxiety Current visit: No Status: Chronic Plan: Admit inpatient for safety and stabilization, Close observation, Suicide Precautions per unit protocol, Encourage participation in unit milieu, Group Therapy, Monitor sleep, Monitor appetite Risks, benefits, side effects, alternatives discussed w/pt: Yes Patient agreeable to treatment: Yes Plans for Post Hospital Care: at Home (3) Suicidal ideation Current visit: No Status: Acute Plan: Admit inpatient for safety and stabilization, Close observation, Suicide Precautions per unit protocol, Encourage participation in unit milieu, Group Therapy, Monitor sleep, Monitor appetite Risks, benefits, side effects, alternatives discussed w/pt: Yes Patient agreeable to treatment: Yes Plans for Post Hospital Care: at Home (4) Bipolar disorder Current visit: No Status: Acute Plan: Admit inpatient for safety and stabilization, Close observation, Suicide Precautions per unit protocol, Encourage participation in unit milieu, Group Therapy, Monitor sleep, Monitor appetite Risks, benefits, side effects, alternatives discussed w/pt: Yes Patient agreeable to treatment: Yes Plans for Post Hospital Care: at Home Qualifiers: Active/Remission status: currently active Current bipolar episode type: mixed Current episode severity: moderate Qualified Code(s): F31.62 - Bipolar disorder, current episode mixed, moderate
[2018-06-07] MEDS: Ibuprofen 400 MG TABLET PO PRN (13:37)
[2018-06-07] MEDS: Divalproex (24 HR) 500 MG TABLET PO SCH (21:29)
[2018-06-07] MEDS: hydrOXYzine pamoate 25 MG CAPSULE PO PRN (21:29)
[2018-06-07] MEDS: OLANZapine 10 MG TAB.RAPDIS PO SCH (21:30)
[2018-06-08] MEDS: Nicotine 21 MG PATCH.TD24 TD SCH (09:49)
--- NOTE | 2018-06-08 13:12 | Psychiatry Progress Note ---
Date of Encounter: 06/08/18 Time of Encounter: 13:08 Subjective Interval history: Client familiar to this fha underwriter from past admissions. Tends to present to ER with suicidal thoughts when coping skills challenged in the community. Abuses Meth and usually says she wants rehab when she is discharged but never follows- up. She is linked with mental health services through [facility]. Client's current plan is to follow up with her regular counselor through [facility] and discuss rehab with her at that appointment. Intends to go back to her own apartment in the meantime. Does not feel ready today but meds restarted and she is beginning to feel better. Thinks she may be ready for discharge as early as tomorrow. Client has frequent admissions and knows how to seek out care when she needs it. Review of Systems Constitutional: Denies: fever, chills, weakness, weight change Eyes: Denies: eye pain, vision change Ears, Nose, Throat: Denies: ear pain, throat pain, dental pain, hearing loss, c ongestion Cardiovascular: Denies: chest pain, palpitations, dyspnea on exertion Respiratory: Denies: cough, dyspnea, wheezes Gastrointestinal: Denies: abdominal pain, nausea, vomiting, diarrhea, constipation Musculoskeletal: Denies: joint swelling, joint pain Neurological: Denies: headache, weakness, numbness, memory loss Psychiatric: Reports: depression, anxiety, abnormal sleep pattern, suicidal ideation Results - Vital Signs Vital Signs: Temp Pulse Resp BP Pulse Ox 97.9 F 90 18 112/79 96 06/08/18 09:00 06/08/18 09:00 06/08/18 09:00 06/08/18 09:00 06/08/18 09:00 Assessment and Plan (1) Bipolar disorder Current visit: No Status: Acute Plan: Continue hospitalization, Close observation, Suicide Precautions per unit protocol, Encourage participation in unit milieu, Group Therapy, Monitor sleep, Monitor appetite Risks, benefits, side effects, alternatives discussed w/pt: Yes Patient agreeable to treatment: Yes Qualifiers: Active/Remission status: currently active Current bipolar episode type: mixed Current episode severity: moderate Qualified Code(s): F31.62 - Bipolar disorder, current episode mixed, moderate (2) Borderline personality disorder Current visit: Yes Status: Chronic Plan: Continue hospitalization, Close observation, Suicide Precautions per unit protocol, Encourage participation in unit milieu, Group Therapy, Monitor sleep, Monitor appetite Risks, benefits, side effects, alternatives discussed w/pt: Yes Patient agreeable to treatment: Yes (3) Methamphetamine abuse Current visit: Yes Status: Acute Plan: Continue hospitalization, Close observation, Suicide Precautions per unit protocol, Encourage participation in unit milieu, Group Therapy, Monitor sleep, Monitor appetite Risks, benefits, side effects, alternatives discussed w/pt: Yes Patient agreeable to treatment: Yes Consult Discharge Plan - Plan Referrals: [facility] [Outside] - 06/20/18 8:40 am (Appointment with TeleChris Crockett on June 20 at 8:40 AM.) [facility] [Outside] - 06/21/18 11:00 am (Appointment with Perla Boykin on June 21 at 11:00 AM. Continue groups with Sindhu Peoples and [facility] on Sunday, Sunday, and Sunday.) Psychiatry Exam - Constitutional Vitals: Temp Pulse Resp BP Pulse Ox 97.9 F 90 18 112/79 96 06/08/18 09:00 06/08/18 09:00 06/08/18 09:00 06/08/18 09:00 06/08/18 09:00 General appearance: age & developmentally appropriate - Musculoskeletal Gait: normal Station: relaxed Strength & Tone: normal for patient - Psychiatric Patient Orientation: Yes Person Level of alertness: Alert Behavior: calm, cooperative Psychomotor activity: Normal Eye Contact: Maintains Eye Contact Mood Description: Depressed Affect description: blunted Speech Volume: Normal Speech pattern: normal rate, normal rhythm, normal tone, fluent, spontaneous Language & Vocabulary: consistent with education Thought Process: Linear, Goal Oriented Thought Content: Yes Suicidal ideation Perceptual Disturbances: No Auditory hallucinations, No Visual hallucinations Attention Span Ability: Capable of Focused Attention Memory Description: Grossly Intact Patient Reliability: Reliable Historian Fund of knowledge: Yes abstraction ability, Yes aware of current events Intelligence Estimate: Average Judgment: Limited Insight: Partial
[2018-06-08] MEDS: Ibuprofen 400 MG TABLET PO PRN (17:05)
[2018-06-08] MEDS: Divalproex (24 HR) 500 MG TABLET PO SCH (21:11)
[2018-06-08] MEDS: OLANZapine 10 MG TAB.RAPDIS PO SCH (21:11)
[2018-06-08] MEDS: hydrOXYzine pamoate 25 MG CAPSULE PO PRN (21:11)
[2018-06-09 11:17] VITALS: BP 105/72
[2018-06-09] MEDS: Nicotine 21 MG PATCH.TD24 TD SCH (11:24)
--- NOTE | 2018-06-09 11:38 | Discharge Summary ---
Date of Encounter: 06/09/18 Time of Encounter: 11:35 Diagnosis - Discharge Diagnosis (1) Bipolar disorder Status: Acute Qualifiers: Active/Remission status: currently active Current bipolar episode type: mixed Current episode severity: moderate Qualified Code(s): F31.62 - Bipolar disorder, current episode mixed, moderate (2) Borderline personality disorder Status: Chronic (3) Methamphetamine abuse Status: Acute Medications - Discharge Medications Prescriptions: OLANZapine [Zyprexa] 10 mg PO HS #14 tablet Divalproex (24 HR) [Depakote ER (24 HR)] 2,000 mg PO HS tab.er.24h 04/06/18 [Rx] Buspirone HCl [Buspar] 7.5 mg PO BID 06/06/18 [History] Gabapentin [Neurontin] 800 mg PO TID 06/06/18 [History] OLANZapine [Zyprexa] 10 mg PO HS #14 tablet 06/09/18 [Rx] Allergy/AdvReac Type Severity Reaction Status Date / Time atomoxetine [From Strattera] Allergy See Verified 06/06/18 19:47 Comments lidocaine Allergy See Verified 06/06/18 19:47 Comments morphine Allergy See Verified 06/06/18 19:47 Comments promethazine Allergy See Verified 06/06/18 19:47 Comments trazodone Allergy Anaphylaxis Verified 06/06/18 19:47 clonazepam [From Klonopin] AdvReac Depression Verified 06/06/18 19:47 quetiapine [From Seroquel] AdvReac Itching Verified 06/06/18 19:47 nicotine patch AdvReac Rash Uncoded 06/06/18 19:47 Results Procedures and tests throughout hospitalization: Completed Lab Orders Category Date Time Status Acetaminophen Stat Lab 06/06/18 19:57 Completed Basic Metabolic Panel Stat Lab 06/06/18 19:57 Completed Complete Blood Count [HEME] Stat Lab 06/06/18 19:57 Completed Drug Screen, Urine [UCHEM] Stat Lab 06/06/18 20:48 Completed Ethanol Stat Lab 06/06/18 19:57 Completed Test Result, Urine [URIN] Stat Lab 06/06/18 20:48 Completed Salicylate Stat Lab 06/06/18 19:57 Completed Urinalysis reflex Microscopic [URIN] Stat Lab 06/06/18 20:48 Completed Provider Date of admission: 06/07/18 12:14 Primary care physician: PCP NONE Discharging clinician: Jennifer Laurent Psychiatry Exam - Constitutional Vitals: Temp Pulse Resp BP Pulse Ox 98.3 F 64 16 105/72 96 06/09/18 09:00 06/09/18 09:00 06/09/18 09:00 06/09/18 09:00 06/09/18 09:00 General appearance: age & developmentally appropriate, well-groomed, well- nourished - Musculoskeletal Gait: normal Station: relaxed Strength & Tone: normal for patient - Psychiatric Patient Orientation: Yes Person, Yes Time, Yes Place Level of alertness: Alert Behavior: calm, cooperative Psychomotor activity: Normal Eye Contact: Maintains Eye Contact Mood Description: Depressed Affect description: full range Speech Volume: Normal Speech pattern: normal rate, normal rhythm, normal tone, fluent, spontaneous Language & Vocabulary: consistent with education Thought Process: Linear, Goal Oriented Thought Content: No Suicidal ideation, No Homicidal ideation, No Overt delusions Perceptual Disturbances: No Auditory hallucinations, No Visual hallucinations Attention Span Ability: Capable of Focused Attention Memory Description: Grossly Intact Patient Reliability: Reliable Historian Fund of knowledge: Yes abstraction ability, Yes aware of current events Intelligence Estimate: Average Judgment: Limited Insight: Partial Hospital Course Hospital course: Ms. Melendez is a 28 year old female who was admitted secondary to SI. Stabilized on Depakote and Zyprexa. Already linked with services and has follow-up in place with her therapist and psychiatrist on the and . Plans to discuss rehab options with her therapist. Abusing Meth prior to admission. Offered to link her with substance abuse treatment directly from the hospital but client feels more comfortable talking about it with her therapist first. Client frequently comes to the hospital with plans for rehab at the time of discharge and never follows through. Remains ambivalent about treatment. Denies SI today. States she feels ready for discharge. Knows how to get help if she needs it once she goes home. No evidence of psychosis or major mood disturbance. Has been cooperative on the unit. - Time Spent with Patient Total time spent providing and/or coordinating discharge services: Assessment and Plan - Patient/Caregiver Discharge Instructions Activity: resume usual activities as tolerated Diet: regular diet - Follow up Plan Follow up with: [facility] [Outside] - 06/20/18 8:40 am (Appointment with TeleDoc Shobha Crockett on June 20 at 8:40 AM.) [facility] [Outside] - 06/21/18 11:00 am (Appointment with Perla Boykin on June 21 at 11:00 AM. Continue groups with Sindhu Peoples and [facility] on Sunday, Sunday, and Sunday.) Functional capacity at discharge: independent ambulation Overall status at discharge: Stable Disposition: Home, Self-Care Quality - Multiple Antipsychotics Patient discharged on 2 or more antipsychotic medications: No Procedures - Procedures Procedures: Medication Management, Crisis Stabilization, Supportive Therapy, Group Therapy
== END 2018-06-09 14:15 | disposition home or self-care (01) | DRG 885 ==
LOC: 1ANU 19:43 → EMEROOARM 19:43 → 1ANU 06-07 00:32
PROVIDERS: ADMIT General Practice; ATTEND General Practice